=== PATIENT | female | born 1940 | race Caucasian/White ===

== ENCOUNTER 2019-11-29 10:34 | Emergency (ER) | payer MEDICARE, SELFPAY ==
[2019-11-29 11:57] VITALS: BP 178/91; PULSE 81; RESP 20; TEMP 37.1; O2SAT 99; BMI 43.7
--- NOTE | 2019-11-29 12:10 | XR_ITS ---
EXAMINATION: XR CHEST CLINICAL INFORMATION: Shortness of breath COMPARISON: None TECHNIQUE: 2 views of the chest were obtained. FINDINGS: There is no evidence of acute parenchymal disease, pneumothorax, or pleural effusion. Heart normal size. No evidence of pulmonary edema. 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 IMPRESSION: No acute disease.
--- NOTE | 2019-11-29 12:10 | ECG_ITS ---
Test Reason : SOB Blood Pressure : / mmHG Vent. Rate : 067 BPM Atrial Rate : 067 BPM P-R Int : 154 ms QRS Dur : 086 ms QT Int : 432 ms P-R-T Axes : 061 069 059 degrees QTc Int : 456 ms Normal sinus rhythm Nonspecific ST abnormality Abnormal ECG When compared with ECG of 25-JUL-2006 14:43, No significant change was found Referred By: Ana Stockton Electronically Signed By:HAILEY SEAY MD
--- NOTE | 2019-11-29 12:11 | US_ITS ---
EXAMINATION: US LOWER EXTREMITY VENOUS, LEFT CLINICAL INFORMATION: Left lower extremity pain and swelling. COMPARISON: None. TECHNIQUE: Doppler spectral analysis and color flow Doppler imaging was performed of the left lower extremity. Compression and augmentation maneuvers were performed. FINDINGS: The left common femoral, femoral, popliteal and calf veins were well-identified and normal. They demonstrate normal compressibility and color fill-in. Within the popliteal fossa there is a complex fluid collection present measuring approximately 4.8 x 1.9 x 2.7 cm in size consistent with popliteal fossa cyst. No popliteal artery aneurysm. IMPRESSION: No evidence for left lower extremity acute deep vein thrombosis. Left popliteal fossa cyst.
[2019-11-29] MEDS: oxyCODONE HCl Immed Release 5 MG TABLET PO (12:29)
[2019-11-29] MEDS: Cyclobenzaprine HCl 10 MG TABLET PO (12:30)
[2019-11-29 12:34] LABS: MANUAL DIFF FLAG NO
[2019-11-29 12:36] LABS: Basophils Absolute Auto 0.1 X10*3/uL (0.0-0.2); Basophils Percent Auto 0.8 % (0-2); Eosinophils Absolute Auto 0.1 X10*3/uL (0.0-0.4); Eosinophils Percent Auto 0.9 % (0-4); Hematocrit 38.8 % (37-47); Hemoglobin 12.9 g/dl (12.0-16.0); Imm Gran Abs Auto 0.02 X10*3/uL (0.00-0.03); Imm Gran Pct Auto 0.2 % (0.0-0.4); Lymphocytes Absolute Auto 2.8 X10*3/uL (1.2-4.9); Lymphocytes Percent Auto 29.2 % (20-40); Mean Corpuscular HGB Conc 33.2 g/dl (31.0-35.0); Mean Corpuscular Hemoglobin 29.9 pg (27.0-33.0); Mean Corpuscular Volume 89.8 fL (80-98); Monocytes Absolute Auto 0.7 X10*3/uL (0.1-1.2); Monocytes Percent Auto 7.7 % (2-11); Neutrophils Absolute Auto 5.8 X10*3/uL (2.0-8.3); Neutrophils Percent Auto 61.2 % (45-73); Platelet Count 242 X10*3/uL (160-400); Red Blood Count 4.32 X10*6/uL (4.20-5.50); White Blood Count 9.5 X10*3/uL (4.8-10.8)
--- NOTE | 2019-11-29 12:36 | ED_ITS ---
HPI - Extremity Injury (Lower) General Chief Complaint: Extremity Injury, Lower Stated Complaint: PAIN IN BOTH LEGS Time Seen by Provider: 11/29/19 12:05 Source: patient Mode of arrival: ambulatory Limitations: no limitations History of Present Illness HPI Narrative: 79-year-old female with a past medical history of diabetes, High cholesterol, HTN (hypertension), Hypothyroidism Here with left leg pain. The patient denies any injury or trauma. She reports me the pain starts in her left thigh and radiates down the leg. She has had this for several days several weeks. Patient does tell me she has had some shortness of breath with exertion. No cough or chest pain. No recent travel, surgery. She does have a history of pulmonary embolism greater than 30 years ago and is not on any anticoagulation at this time. MD complaint: other ( no injury) Onset (ago): week(s) Other symptoms: none Treatments prior to arrival: cold therapy Related Data Previous Rx's Medication Instructions Recorded cyclobenzaprine 10 mg PO Q8H PRN #10 tab 11/29/19 naproxen 500 mg PO BID PRN #10 tab 11/29/19 tramadol 50 mg PO BEDTIME PRN #5 tab 11/29/19 Allergies Allergy/AdvReac Type Severity Reaction Status Date / Time sulfamethoxazole Allergy Intermediate FULL BODY Unverified 10/31/19 15:41 [From BACTRIM] RASH trimethoprim [From BACTRIM] Allergy Intermediate FULL BODY Unverified 10/31/19 15:41 RASH Sulfa (Sulfonamide Allergy Unknown Verified 05/30/18 00:00 Antibiotics) Review of Systems Review of Systems: Yes all other systems are reviewed and are negative Constitutional: Constitutional: Reports no additional constitutional complaints, Denies body ache(s), Denies chills, Denies fever(s), Denies headache(s) and Denies weakness Eyes: Eyes: Reports no additional eye complaints and Denies change in vision ENT: Reports system reviewed and no additional complaints, except as documented, Denies dizziness, Denies headache(s), Denies nasal congestion, Denies nasal discharge and Denies neck pain Cardiovascular: Cardiovascular: Reports no additional cardiovascular complaints, Denies chest pain, Denies leg edema and Reports dyspnea Respiratory: Respiratory: Reports no additional respiratory complaints, Denies cough and Reports dyspnea Gastrointestinal: Gastrointestinal: Reports no additional gastrointestinal complaints, Denies abdominal pain, Denies diarrhea, Denies nausea and Denies vomiting Genitourinary: Genitourinary: Reports no additional female genitourinary complaints and Denies urinary incontinence Musculoskeletal: Musculoskeletal: Reports no additional musculoskeletal compl aints, Denies back pain, Denies arthralgias, Denies joint swelling, Reports muscle cramps, Denies neck pain, Denies numbness and Denies tingling Integumentary/Breasts: Skin/Breast: Reports system reviewed and no additional complaints, except as docu and Denies rash Neurologic: Reports system reviewed and no additional complaints, except as documented, Denies Abnormal speech present, Denies dizziness, Denies headache(s), Denies numbness, Denies tingling and Denies weakness PMFSH Past Medical History Attestation statement: The following information was validated with the patient. Source: obtained from family and nursing notes reviewed Medical History Diabetes 1.5, managed as type 2 High cholesterol HTN (hypertension) Hypothyroid Social History Social History Smoking Status: Former smoker Use of substances other than those prescribed or required for medical reasons: No Advance Directives: No Advance Directives Information Provided: Yes Physical Exam Vital Signs: Vital Signs: Vital Signs Temp Pulse Resp BP Pulse Ox 11/29/19 14:28 84 20 142/67 H 99 11/29/19 11:57 98.8 F 81 20 178/91 H 99 Body Mass Index 43.7 Const: General: cooperative, healthy appearing, comfortable and no acute distress Orientation/consciousness: patient oriented x3 Limitations: no limitations HENMT: Head: Yes normal to inspection Ears: hearing grossly normal bilaterally General nose exam: Normal external nose present Face and sinus: Yes normal facial exam Mouth: Normal oral and palatal mucosa present Throat: Yes posterior oropharynx normal Eyes: General: appearance normal, both eyes and all related structures Pupils: Equal, round and reactive pupils present Neck: Neck: Yes normal visual inspection Chest: Chest palpation & inspection: normal inspection of the chest Resp: Other: speaking full sentences. No apparent distress. Lung sounds clear throughout. Effort & Inspection: normal respiratory effort Auscultation: clear to auscultation bilaterally Cardio: Rate: regular rate Rhythm: regular rhythm Peripheral pulses: Peripheral pulses 2+ throughout GI: Inspection: Yes normal to inspection Palpation (GI): Soft to palpation and nontender Auscultation: normal bowel sounds Back/Spine/Pelvis: Thoracic/Lumbar Spine: thoracic and lumbar spine normal to inspection Skin: General skin exam: no rashes or lesions noted Neuro: General: patient oriented x3, no focal motor deficits and normal sensation to monofilament Cranial nerves: Yes Equal, round and reactive pupils present Cognition (Neuro): normal cognition Speech: No Abnormal speech present Gait exam (Neuro): Normal gait present Motor exam (neuro): 5/5 motor strength present throughout Extrem: Other: Patient has pain and tenderness over the entire left thigh which she tells me radiates down the leg. She does have some calf tenderness with no obvious swelling, discoloration. Neurovascularly intact distally. Pain with flexion of the left knee but is able. No palpable bony abnormality or discomfort over the knee or hip. Palpable muscle spasms. General: Yes normal to inspection Course Course Course Narrative: 79-year-old female here with left lower extremity pain which is atraumatic with some shortness of breath with exertion for the last several days to weeks. On exam her pain is musculoskeletal and very spasmodic the left lower extremity. No injury or trauma or bony abnormality. Will check ultrasound to rule out DVT. Patient also complaining of some shortness of breath exertion only. At rest she is well appearing with no difficulty with stable saturations a clear lung sounds. Will check chest x-ray, labs, EKG. 1400- ultrasound negative for DVT. Labs including troponin are unremarkable. Chest x-ray negative. Patient tells me she is feeling improved after receiving analgesia here. Will plan for ambulation trial with pulse ox. 1430- Patient walks with a steady gait with pulse ox greater than 96% no shortness of breath noted. No complaints of chest pain. The patient tells me her pain is much improved. Likely muscle spasm. Reviewed worrisome signs and symptoms and when to return to the emergency department. Comfortable with discharge home. Low concern for ACS with negative troponin and EKG unchanged from baseline with symptoms greater than 24 hours. Low concern for CHF with negative BNP. Low concern for PE with negative venous ultrasound, no tachycardia, no hypoxia. MDM - Extremity Injury (Lower) MDM Narrative Medical decision making narrative: Considered musculoskeletal, spasmodic pain, sciatica, DVT, PE, ACS, CHF Medical Records Attestation: I reviewed the patient's medical records. Lab Data Attestation: I reviewed the patient's lab results. Result diagrams: 11/29/19 12:11/29/19 12: Labs: Lab Results 11/29/19 11/29/19 11/29/19 Range/Units 12: 12: 12: WBC 9.5 (4.8-10.8) X10*3/uL RBC 4.32 (4.20-5.50) X10*6/uL Hgb 12.9 (12.0-16.0) g/dl Hct 38.8 (37-47) % MCV 89.8 (80-98) fL MCH 29.9 (27.0-33.0) pg MCHC 33.2 (31.0-35.0) g/dl RDW 13.0 (11.0-16.0) % Plt Count 242 (160-400) X10*3/uL MPV 11.0 (9.4-12.3) fL Immature Gran % (Auto) 0.2 (0.0-0.4) % Neut % (Auto) 61.2 (45-73) % Lymph % (Auto) 29.2 (20-40) % [place] % (Auto) 7.7 (2-11) % Eos % (Auto) 0.9 (0-4) % Baso % (Auto) 0.8 (0-2) % Lymph # (Auto) 2.8 (1.2-4.9) X10*3/uL [place] # (Auto) 0.7 (0.1-1.2) X10*3/uL Eos # (Auto) 0.1 (0.0-0.4) X10*3/uL Baso # (Auto) 0.1 (0.0-0.2) X10*3/uL Abs Immat Gran (auto) 0.02 (0.00-0.03) X10*3/uL Absolute Neuts (auto) 5.8 (2.0-8.3) X10*3/uL Absolute Nucleated RBC 0.000 (0.0-0.012) X10*3/uL Nucleated RBC % (auto) 0.0 (0.0-0.2) /100WBC PT 12.8 (10.8-13.0) SEC INR 1.1 (0.9-1.1) Sodium 141 (135-145) mmol/L Potassium 3.7 (3.3-5.1) mmol/l Chloride 99 (96-108) mmol/L Carbon Dioxide 31 H (22-29) mmol/L Anion Gap 15 (12-20) BUN 12 (9-16) mg/dL Creatinine 0.87 (0.5-1.4) mg/dL Estim Creat Clear Calc 67.6 Estimated GFR > 60 Random Glucose 131 H (60-115) mg/dL Calcium 9.4 (8.4-10.2) mg/dL Magnesium 2.0 (1.6-2.6) mg/dL Total Bilirubin 1.3 H (0.0-1.0) mg/dL Direct Bilirubin 0.5 (0.0-0.5) mg/dL AST 16 (5-31) U/L ALT 16 (0-31) U/L Alkaline Phosphatase 49 (39-117) U/L Troponin I High Sens (<3.5-17.0) ng/L B-Natriuretic Peptide (<100) pg/mL Total Protein 6.9 (6.5-8.0) g/dL Albumin 4.4 (3.5-5.0) g/dL 10/16/20 Range/Units 12:26 WBC (4.8-10.8) X10*3/uL RBC (4.20-5.50) X10*6/uL Hgb (12.0-16.0) g/dl Hct (37-47) % MCV (80-98) fL MCH (27.0-33.0) pg MCHC (31.0-35.0) g/dl RDW (11.0-16.0) % Plt Count (160-400) X10*3/uL MPV (9.4-12.3) fL Immature Gran % (Auto) (0.0-0.4) % Neut % (Auto) (45-73) % Lymph % (Auto) (20-40) % [place] % (Auto) (2-11) % Eos % (Auto) (0-4) % Baso % (Auto) (0-2) % Lymph # (Auto) (1.2-4.9) X10*3/uL [place] # (Auto) (0.1-1.2) X10*3/uL Eos # (Auto) (0.0-0.4) X10*3/uL Baso # (Auto) (0.0-0.2) X10*3/uL Abs Immat Gran (auto) (0.00-0.03) X10*3/uL Absolute Neuts (auto) (2.0-8.3) X10*3/uL Absolute Nucleated RBC (0.0-0.012) X10*3/uL Nucleated RBC % (auto) (0.0-0.2) /100WBC PT (10.8-13.0) SEC INR (0.9-1.1) Sodium (135-145) mmol/L Potassium (3.3-5.1) mmol/l Chloride (96-108) mmol/L Carbon Dioxide (22-29) mmol/L Anion Gap (12-20) BUN (9-16) mg/dL Creatinine (0.5-1.4) mg/dL Estim Creat Clear Calc Estimated GFR Random Glucose (60-115) mg/dL Calcium (8.4-10.2) mg/dL Magnesium (1.6-2.6) mg/dL Total Bilirubin (0.0-1.0) mg/dL Direct Bilirubin (0.0-0.5) mg/dL AST (5-31) U/L ALT (0-31) U/L Alkaline Phosphatase (39-117) U/L Troponin I High Sens 3.7 (<3.5-17.0) ng/L B-Natriuretic Peptide 26 (<100) pg/mL Total Protein (6.5-8.0) g/dL Albumin (3.5-5.0) g/dL Imaging Data venous US: Attestation: I personally reviewed and interpreted this imaging study as lea souza: My impression: Negative for DVT Radiologist's impression: [address] [address] Ultrasound Report Signed Patient: Aydin HughesAmilcar#: [id number] : 3Acct:[id number] Age/Sex: 79 / FADM Date: 11/29/19 Loc: HO.ED Attending Dr: Ordering Physician: YESENIA SAMUEL NP Date of Service: 11/29/19 Procedure(s): US venous duplex LE LT Accession Number(s): [id number] cc: YESENIA SAMUEL NP~ EXAMINATION: US LOWER EXTREMITY VENOUS, LEFT CLINICAL INFORMATION: Left lower extremity pain and swelling. COMPARISON: None. TECHNIQUE: Doppler spectral analysis and color flow Doppler imaging was performed of the left lower extremity. Compression and augmentation maneuvers were performed. FINDINGS: The left common femoral, femoral, popliteal and calf veins were well-identified and normal. They demonstrate normal compressibility and color fill-in. Within the popliteal fossa there is a complex fluid collection present measuring approximately 4.8 x 1.9 x 2.7 cm in size consistent with popliteal fossa cyst. No popliteal artery aneurysm. IMPRESSION: No evidence for left lower extremity acute deep vein thrombosis. Left popliteal fossa cyst. chest xray: My impression: unremarkanle Radiologist's impression: EXAMINATION: XR CHEST CLINICAL INFORMATION: Shortness of breath COMPARISON: None TECHNIQUE: 2 views of the chest were obtained. FINDINGS: There is no evidence of acute parenchymal disease, pneumothorax, or pleural effusion. Heart normal size. No evidence of pulmonary edema. 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 IMPRESSION: No acute disease. ECG Data Attestation: I personally reviewed and interpreted this ECG as follows: ECG interpretation date: 11/29/19 ECG interpretation time: 13:23 Interpretation: normal sinus rhythm, normal DC, normal QRS, nonspecific ST abnormality. Discharge Plan Discharge Clinical Impression: Muscle spasm Patient Disposition: Home, Self-Care Instructions: Muscle Spasm (ED) Additional Instructions: gentle stretching keep appointment with pcp on monday and if no better discuss with him Prescriptions: New naproxen 500 mg tablet 500 mg PO BID PRN (Reason: pain) Qty: 10 RF: 0 cyclobenzaprine 10 mg tablet 10 mg PO Q8H PRN (Reason: muscle spasm) Qty: 10 RF: 0 tramadol 50 mg tablet 50 mg PO BEDTIME PRN (Reason: pain) Qty: 5 RF: 0 Referrals: Fredrick Ghotra MD [Primary Care Provider] - 2 days Interventions: ED Discharge Assessment Last Done: 11/29/19 14:39 Discharge Date/Time: 11/29/19 14:43
[2019-11-29 12:40] LABS: INTERNATIONAL NORM RATIO 1.1 (0.9-1.1); Prothrombin Time 12.8 SEC (10.8-13.0)
[2019-11-29 13:15] LABS: Alanine Aminotransferase 16 U/L (0-31); Albumin Level 4.4 g/dL (3.5-5.0); Alkaline Phosphatase 49 U/L (39-117); Anion Gap 15 (12-20); Aspartate Amino Transferase 16 U/L (5-31); Bilirubin Direct 0.5 mg/dL (0.0-0.5); Bilirubin Total 1.3 mg/dL (0.0-1.0); Blood Urea Nitrogen 12 mg/dL (9-16); Calcium 9.4 mg/dL (8.4-10.2); Carbon Dioxide 31 mmol/L (22-29); Chloride 99 mmol/L (96-108); Creatinine Clr Calc Pharmacy 67.6; Estimated Glomerular Filt Rate > 60; Glucose Random 131 mg/dL (60-115); Potassium 3.7 mmol/l (3.3-5.1); Sodium 141 mmol/L (135-145); Total Protein 6.9 g/dL (6.5-8.0)
[2019-11-29 13:18] LABS: B Type Natriuretic Peptide 26 pg/mL (<100); Troponin-I High Sensitivity 3.7 ng/L (<3.5-17.0)
--- NOTE | 2019-11-29 14:26 | PC.NURSE ---
THIS RN DID AN AMBULATION TRIAL WITH THE PT, PT AMBULATED REALLY WELL STATES SHE FEELS MUCH BETTER, SAT'S MAINTAINED AT 95-96% ON ROOM AIR
[2019-11-29 14:28] VITALS: BP 142/67; PULSE 84; RESP 20; O2SAT 99
== END 2019-11-29 14:43 | disposition home or self-care (01) ==
PROVIDERS: Nurse Practitioner Family; Emergency Provider Emergency Medicine; PCP Internal Medicine
DX: M79.662 Pain in left lower leg (principal); R60.0 Localized edema; E11.9 Type 2 diabetes mellitus without complications; I10 Essential (primary) hypertension; Z87.891 Personal history of nicotine dependence; Z79.899 Other long term (current) drug therapy
CPT/HCPCS: 36415; 71046; 80048; 80076; 83735; 83880; 84484; 85025; 85610; 93005; 93971; 99284

== ENCOUNTER 2019-12-02 10:23 | Outpatient (REF) | payer MEDICARE, SELFPAY ==
[2019-12-02 11:17] LABS: Estimated Average Glucose 128 mg/dL; Hemoglobin A1c % 6.1 %
[2019-12-02 11:52] LABS: Anion Gap 12 (12-20); Blood Urea Nitrogen 18 mg/dL (9-16); Calcium 8.9 mg/dL (8.4-10.2); Carbon Dioxide 32 mmol/L (22-29); Chloride 102 mmol/L (96-108); Estimated Glomerular Filt Rate > 60; Glucose Random 116 mg/dL (60-115); Potassium 4.4 mmol/l (3.3-5.1); Sodium 142 mmol/L (135-145)
[2019-12-02 12:13] LABS: Free T4 (Free Thyroxine) 1.21 ng/dL (0.71-1.85); Vitamin D 25-OH Total 42.4 ng/mL (>30)
== END 2019-12-02 10:24 | disposition home or self-care (01) ==
LOC: HO.LAB 10:23
PROVIDERS: PCP Internal Medicine; Visit Provider Internal Medicine
DX: E03.9 Hypothyroidism, unspecified (principal); E11.9 Type 2 diabetes mellitus without complications; I10 Essential (primary) hypertension; R25.2 Cramp and spasm
CPT/HCPCS: 80048; 82306; 82550; 83036; 84439; 84443

== ENCOUNTER 2019-12-19 10:39 | Outpatient (REF) | payer MEDICARE, SELFPAY ==
--- NOTE | 2019-12-19 10:44 | MM_ITS ---
EXAMINATION: MM SCREENING DIGITAL BREAST TOMOSYNTHESIS, BILATERAL CLINICAL INFORMATION: Screening. Asymptomatic. The lifetime risk of breast cancer based on the Tyrer-Cuzick Model is 3.9%. COMPARISON: Mammography: December 13, 2018 and studies dating back to September 03, 2013 TECHNIQUE: Digital breast tomosynthesis is performed in both the craniocaudal and mediolateral oblique views along with computer-aided detection (CAD). Synthesized 2D images are generated from the tomosynthesis. FINDINGS: The breasts are almost entirely fatty (ACR BI-RADS breast composition Category a). There are no significant masses, abnormal calcifications, or other abnormalities. MM/MM tomosynthesis screening BI IMPRESSION: There are no significant changes from prior study. ASSESSMENT: BI-RADS 1: Negative RECOMMENDATION: Routine annual mammography screening. This patient's information was entered into a reminder system with a target due date for their next mammogram.
== END 2019-12-19 10:40 | disposition home or self-care (01) ==
LOC: HO.MAMMO 10:39
PROVIDERS: PCP Internal Medicine; Visit Provider Internal Medicine
DX: Z12.31 Encounter for screening mammogram for malignant neoplasm of breast (principal)
CPT/HCPCS: 77063; 77067

== ENCOUNTER 2020-06-22 10:15 | Outpatient (REF) | payer MEDICARE, SELFPAY ==
[2020-06-22 14:08] LABS: MANUAL DIFF FLAG NO
[2020-06-22 14:14] LABS: Basophils Absolute Auto 0.1 X10*3/uL (0.0-0.2); Basophils Percent Auto 0.7 % (0-2); Eosinophils Absolute Auto 0.2 X10*3/uL (0.0-0.4); Eosinophils Percent Auto 2.6 % (0-4); Hematocrit 38.6 % (37-47); Hemoglobin 12.6 g/dl (12.0-16.0); Imm Gran Abs Auto 0.02 X10*3/uL (0.00-0.03); Imm Gran Pct Auto 0.2 % (0.0-0.4); Lymphocytes Absolute Auto 2.7 X10*3/uL (1.2-4.9); Lymphocytes Percent Auto 32.7 % (20-40); Mean Corpuscular HGB Conc 32.6 g/dl (31.0-35.0); Mean Corpuscular Hemoglobin 29.5 pg (27.0-33.0); Mean Corpuscular Volume 90.4 fL (80-98); Mean Platelet Volume 12.2 fL (9.4-12.3); Monocytes Absolute Auto 0.5 X10*3/uL (0.1-1.2); Monocytes Percent Auto 6.1 % (2-11); Neutrophils Absolute Auto 4.7 X10*3/uL (2.0-8.3); Neutrophils Percent Auto 57.7 % (45-73); Platelet Count 272 X10*3/uL (160-400); Red Blood Count 4.27 X10*6/uL (4.20-5.50); Red Cell Distribution Width 13.2 % (11.0-16.0); White Blood Count 8.2 X10*3/uL (4.8-10.8)
[2020-06-22 14:20] LABS: Estimated Average Glucose 114 mg/dL; Hemoglobin A1c % 5.6 %
[2020-06-22 14:48] LABS: Alanine Aminotransferase 16 U/L (0-31); Albumin Level 4.3 g/dL (3.5-5.0); Alkaline Phosphatase 49 U/L (39-117); Anion Gap 17 (12-20); Aspartate Amino Transferase 14 U/L (5-31); Blood Urea Nitrogen 13 mg/dL (9-16); Calcium 9.6 mg/dL (8.4-10.2); Carbon Dioxide 28 mmol/L (22-29); Chloride 102 mmol/L (96-108); Estimated Glomerular Filt Rate > 60; Glucose Fasting 104 mg/dL (60-99); Sodium 143 mmol/L (135-145); Total Protein 6.7 g/dL (6.5-8.0)
[2020-06-22 14:57] LABS: Creatinine Urine 12.07 mg/dL; Microalbumin Urine < 5.0 mg/L
[2020-06-22 15:00] LABS: Free T4 (Free Thyroxine) 1.12 ng/dL (0.71-1.85); Thyroid Stimulating Hormone 2.34 uIU/mL (0.32-4.0)
== END 2020-06-22 10:16 | disposition home or self-care (01) ==
LOC: HO.10HDL 10:15
PROVIDERS: Visit Provider Internal Medicine
DX: E11.9 Type 2 diabetes mellitus without complications (principal); I10 Essential (primary) hypertension; E03.9 Hypothyroidism, unspecified
CPT/HCPCS: 36415; 80053; 82043; 83036; 84439; 84443; 85025

== ENCOUNTER 2020-09-21 09:45 | Outpatient (REF) | payer MEDICARE, SELFPAY ==
[2020-09-21 11:10] LABS: Estimated Average Glucose 123 mg/dL; Hemoglobin A1c % 5.9 %
[2020-09-21 11:17] LABS: Anion Gap 11 (12-20); Blood Urea Nitrogen 17 mg/dL (9-16); Carbon Dioxide 30 mmol/L (22-29); Chloride 106 mmol/L (96-108); Estimated Glomerular Filt Rate > 60; Glucose Random 134 mg/dL (60-115); Sodium 143 mmol/L (135-145)
== END 2020-09-21 09:46 | disposition home or self-care (01) ==
LOC: HO.10HDL 09:45
PROVIDERS: PCP Internal Medicine; Visit Provider Internal Medicine
DX: I10 Essential (primary) hypertension (principal); E11.9 Type 2 diabetes mellitus without complications
CPT/HCPCS: 36415; 80048; 83036

== ENCOUNTER 2020-12-24 08:52 | Outpatient (REF) | payer MEDICARE, SELFPAY ==
--- NOTE | ~2020-12-24 | MM_ITS ---
EXAMINATION: MM SCREENING DIGITAL BREAST TOMOSYNTHESIS, BILATERAL CLINICAL INFORMATION: Screening. Asymptomatic. The lifetime risk of breast cancer based on the Tyrer-Cuzick Model is 1.7%. COMPARISON: Mammography: December 19, 2019 and studies dating back to August 23, 2011 TECHNIQUE: Digital breast tomosynthesis is performed in both the craniocaudal and mediolateral oblique views along with computer-aided detection (CAD). Synthesized 2D images are generated from the tomosynthesis. FINDINGS: The breasts are almost entirely fatty (ACR BI-RADS breast composition Category a). There are no significant masses, abnormal calcifications, or other abnormalities. Stable region of architectural distortion some really region again seen. MM/MM tomosynthesis screening BI IMPRESSION: There are no significant changes from prior study. ASSESSMENT: BI-RADS 1: Negative RECOMMENDATION: Routine annual mammography screening. This patient's information was entered into a reminder system with a target due date for their next mammogram.
== END 2020-12-24 08:53 | disposition home or self-care (01) ==
LOC: HO.MAMMO 08:52
PROVIDERS: Visit Provider Internal Medicine
DX: Z12.31 Encounter for screening mammogram for malignant neoplasm of breast (principal)
CPT/HCPCS: 77063; 77067

== ENCOUNTER 2020-12-28 10:12 | Outpatient (REF) | payer MEDICARE, SELFPAY ==
[2020-12-28 13:46] LABS: MANUAL DIFF FLAG NO
[2020-12-28 13:52] LABS: Basophils Absolute Auto 0.1 X10*3/uL (0.0-0.2); Basophils Percent Auto 0.8 % (0-2); Eosinophils Absolute Auto 0.2 X10*3/uL (0.0-0.4); Hematocrit 39.9 % (37.0-47.0); Hemoglobin 13.2 g/dl (12.0-16.0); Imm Gran Abs Auto 0.02 X10*3/uL (0.00-0.03); Imm Gran Pct Auto 0.2 % (0.0-0.4); Lymphocytes Absolute Auto 3.2 X10*3/uL (1.2-4.9); Lymphocytes Percent Auto 37.4 % (20-40); Mean Corpuscular HGB Conc 33.1 g/dl (31.0-35.0); Mean Corpuscular Hemoglobin 29.5 pg (27.0-33.0); Mean Corpuscular Volume 89.1 fL (80.0-98.0); Mean Platelet Volume 12.7 fL (9.4-12.3); Monocytes Absolute Auto 0.6 X10*3/uL (0.1-1.2); Monocytes Percent Auto 6.6 % (2-11); Neutrophils Absolute Auto 4.6 x10*3/uL (2.0-8.3); Platelet Count 254 X10*3/uL (160-400); Red Blood Count 4.48 X10*6/uL (4.20-5.50); Red Cell Distribution Width 13.3 % (11.0-16.0); White Blood Count 8.6 X10*3/uL (4.8-10.8)
[2020-12-28 14:04] LABS: Estimated Average Glucose 120 mg/dL; Hemoglobin A1c % 5.8 %
[2020-12-28 14:17] LABS: Creatinine Urine 169.81 mg/dL; Microalbum/Creatinine Ratio Ur 15.3 ug/mg cr
[2020-12-28 14:18] LABS: Alanine Aminotransferase 15 U/L (0-31); Albumin Level 4.2 g/dL (3.5-5.0); Alkaline Phosphatase 44 U/L (39-117); Anion Gap 13 (12-20); Aspartate Amino Transferase 16 U/L (5-31); Blood Urea Nitrogen 17 mg/dL (9-16); Calcium 9.5 mg/dL (8.4-10.2); Carbon Dioxide 31 mmol/L (22-29); Chloride 103 mmol/L (96-108); Cholesterol 165 mg/dL; Estimated Glomerular Filt Rate > 60; Glucose Fasting 110 mg/dL (60-99); HDL Cholesterol 54 mg/dL; LDL Cholesterol Calculated 91 mg/dl; Potassium 4.2 mmol/L (3.3-5.1); Sodium 143 mmol/L (135-145); Total Protein 6.8 g/dL (6.5-8.0); Triglycerides 102 mg/dL
[2020-12-28 14:37] LABS: Free T4 (Free Thyroxine) 1.03 ng/dL (0.71-1.85); Thyroid Stimulating Hormone 2.44 uIU/mL (0.32-4.0)
== END 2020-12-28 10:13 | disposition home or self-care (01) ==
LOC: HO.10HDL 10:12
PROVIDERS: Visit Provider Internal Medicine
DX: E11.9 Type 2 diabetes mellitus without complications (principal); I10 Essential (primary) hypertension; E03.9 Hypothyroidism, unspecified; E78.00 Pure hypercholesterolemia, unspecified
CPT/HCPCS: 36415; 80053; 80061; 82043; 83036; 84439; 84443; 85025

== ENCOUNTER 2021-09-06 09:45 | Outpatient (REF) | payer MEDICARE, SELFPAY ==
[2021-09-06 10:21] LABS: MANUAL DIFF FLAG NO
[2021-09-06 10:23] LABS: Basophils Absolute Auto 0.1 X10*3/uL (0.0-0.2); Basophils Percent Auto 0.7 % (0-2); Eosinophils Absolute Auto 0.3 X10*3/uL (0.0-0.4); Eosinophils Percent Auto 3.3 % (0-4); Hemoglobin 12.5 g/dl (12.0-16.0); Imm Gran Abs Auto 0.03 X10*3/uL (0.00-0.03); Imm Gran Pct Auto 0.3 % (0.0-0.4); Lymphocytes Percent Auto 32.9 % (20-40); Mean Corpuscular HGB Conc 32.1 g/dl (31.0-35.0); Mean Corpuscular Hemoglobin 28.2 pg (27.0-33.0); Mean Corpuscular Volume 87.8 fL (80.0-98.0); Mean Platelet Volume 11.3 fL (9.4-12.3); Monocytes Absolute Auto 0.7 X10*3/uL (0.1-1.2); Monocytes Percent Auto 7.3 % (2-11); Neutrophils Percent Auto 55.5 % (45-73); Platelet Count 280 X10*3/uL (160-400); Red Blood Count 4.44 X10*6/uL (4.20-5.50); Red Cell Distribution Width 13.2 % (11.0-16.0); White Blood Count 9.1 X10*3/uL (4.8-10.8)
[2021-09-06 11:09] LABS: Estimated Average Glucose 128 mg/dL; Hemoglobin A1c % 6.1 %
[2021-09-06 11:48] LABS: Alanine Aminotransferase 13 U/L (0-31); Albumin Level 4.1 g/dL (3.5-5.0); Alkaline Phosphatase 47 U/L (39-117); Anion Gap 12 (12-20); Aspartate Amino Transferase 15 U/L (5-31); Bilirubin Total 0.9 mg/dL (0.0-1.0); Blood Urea Nitrogen 17 mg/dL (9-16); Calcium 8.9 mg/dL (8.4-10.2); Carbon Dioxide 31 mmol/L (22-29); Chloride 103 mmol/L (96-108); Estimated Glomerular Filt Rate > 60; Glucose Random 128 mg/dL (60-115); Iron 57 mcg/dL (30-160); Percent Iron Saturation 19 % (15-50); Potassium 3.9 mmol/L (3.3-5.1); Sodium 142 mmol/L (135-145); Total Iron Binding Capacity 308 mcg/dL (228-428); Total Protein 6.7 g/dL (6.5-8.0); Unsaturated Iron Binding 251 ug/dL
[2021-09-06 12:10] LABS: Free T4 (Free Thyroxine) 0.92 ng/dL (0.71-1.85); Thyroid Stimulating Hormone 5.67 uIU/mL (0.32-4.0)
== END 2021-09-06 09:46 | disposition home or self-care (01) ==
LOC: HO.10HDL 09:45
PROVIDERS: Visit Provider Internal Medicine
DX: D64.9 Anemia, unspecified (principal); E11.9 Type 2 diabetes mellitus without complications; E03.9 Hypothyroidism, unspecified; I10 Essential (primary) hypertension
CPT/HCPCS: 36415; 80053; 83036; 83540; 84439; 84443; 85025

== ENCOUNTER 2021-12-30 09:26 | Outpatient (REF) | payer MEDICARE, SELFPAY ==
--- NOTE | ~2021-12-30 | MM_ITS ---
EXAMINATION: MM SCREENING DIGITAL BREAST TOMOSYNTHESIS, BILATERAL CLINICAL INFORMATION: Screening. Asymptomatic. The lifetime risk of breast cancer based on the Tyrer-Cuzick Model is 1.9%. COMPARISON: Mammography: December 24, 2020 and studies dating back to September 03, 2013 TECHNIQUE: Digital breast tomosynthesis is performed in both the craniocaudal and mediolateral oblique views along with computer-aided detection (CAD). Synthesized 2D images are generated from the tomosynthesis. FINDINGS: The breasts are almost entirely fatty (ACR BI-RADS breast composition Category a). There are no significant masses, abnormal calcifications, or other abnormalities. MM/MM tomosynthesis screening BI IMPRESSION: No significant changes from prior exam. ASSESSMENT: BI-RADS 1: Negative RECOMMENDATION: Routine annual mammography screening. This patient's information was entered into a reminder system with a target due date for their next mammogram.
== END 2021-12-30 09:27 | disposition home or self-care (01) ==
LOC: HO.MAMMO 09:26
PROVIDERS: Visit Provider Internal Medicine
DX: Z12.31 Encounter for screening mammogram for malignant neoplasm of breast (principal)
CPT/HCPCS: 77063; 77067

== ENCOUNTER 2022-01-03 09:39 | Outpatient (REF) | payer MEDICARE, SELFPAY ==
[2022-01-03 10:45] LABS: MANUAL DIFF FLAG NO
[2022-01-03 10:52] LABS: Basophils Absolute Auto 0.1 X10*3/uL (0.0-0.2); Eosinophils Absolute Auto 0.3 X10*3/uL (0.0-0.4); Hematocrit 39.7 % (37.0-47.0); Hemoglobin 12.9 g/dl (12.0-16.0); Imm Gran Abs Auto 0.02 X10*3/uL (0.00-0.03); Imm Gran Pct Auto 0.2 % (0.0-0.4); Lymphocytes Absolute Auto 2.9 X10*3/uL (1.2-4.9); Lymphocytes Percent Auto 33.8 % (20-40); Mean Corpuscular HGB Conc 32.5 g/dl (31.0-35.0); Mean Corpuscular Hemoglobin 28.7 pg (27.0-33.0); Mean Corpuscular Volume 88.2 fL (80.0-98.0); Mean Platelet Volume 11.3 fL (9.4-12.3); Monocytes Absolute Auto 0.6 X10*3/uL (0.1-1.2); Monocytes Percent Auto 6.8 % (2-11); Neutrophils Absolute Auto 4.7 x10*3/uL (2.0-8.3); Neutrophils Percent Auto 55.2 % (45-73); Platelet Count 255 X10*3/uL (160-400); Red Cell Distribution Width 12.8 % (11.0-16.0); White Blood Count 8.4 X10*3/uL (4.8-10.8)
[2022-01-03 11:07] LABS: Estimated Average Glucose 126 mg/dL
[2022-01-03 11:14] LABS: Alanine Aminotransferase 16 U/L (0-31); Albumin Level 4.1 g/dL (3.5-5.0); Alkaline Phosphatase 49 U/L (39-117); Anion Gap 16 (12-20); Aspartate Amino Transferase 16 U/L (5-31); Bilirubin Total 0.9 mg/dL (0.0-1.0); Blood Urea Nitrogen 15 mg/dL (9-16); Calcium 9.2 mg/dL (8.4-10.2); Carbon Dioxide 30 mmol/L (22-29); Chloride 103 mmol/L (96-108); Cholesterol 152 mg/dL; Estimated Glomerular Filt Rate > 60; Glucose Fasting 130 mg/dL (60-99); HDL Cholesterol 53 mg/dL; LDL Cholesterol Calculated 73 mg/dl; Potassium 3.9 mmol/L (3.3-5.1); Sodium 145 mmol/L (135-145); Total Protein 6.7 g/dL (6.5-8.0); Triglycerides 131 mg/dL
[2022-01-03 11:35] LABS: Free T4 (Free Thyroxine) 0.92 ng/dL (0.71-1.85)
[2022-01-03 11:42] LABS: Creatinine Urine 163.15 mg/dL; Microalbum/Creatinine Ratio Ur 49.6 ug/mg cr
== END 2022-01-03 09:40 | disposition home or self-care (01) ==
LOC: HO.10HDL 09:39
PROVIDERS: Visit Provider Internal Medicine
DX: Z00.00 Encounter for general adult medical examination without abnormal findings (principal); E11.9 Type 2 diabetes mellitus without complications; E03.9 Hypothyroidism, unspecified
CPT/HCPCS: 36415; 80053; 80061; 82043; 83036; 84439; 84443; 85025

== ENCOUNTER 2022-06-22 09:53 | Outpatient (REF) | payer MEDICARE, SELFPAY ==
[2022-06-22 11:06] LABS: Estimated Average Glucose 134 mg/dL; Hemoglobin A1c % 6.3 %
[2022-06-22 11:47] LABS: Anion Gap 12 (12-20)
[2022-06-22 11:48] LABS: Blood Urea Nitrogen 14 mg/dL (9-16); Calcium 9.3 mg/dL (8.4-10.2); Carbon Dioxide 31 mmol/L (22-29); Chloride 104 mmol/L (96-108); Estimated Glomerular Filt Rate > 60; Glucose Random 134 mg/dL (60-115); Potassium 4.1 mmol/L (3.3-5.1); Sodium 143 mmol/L (135-145)
[2022-06-22 11:51] LABS: Free T4 (Free Thyroxine) 0.82 ng/dL (0.71-1.85); Thyroid Stimulating Hormone 7.73 uIU/mL (0.32-4.0)
== END 2022-06-22 09:54 | disposition home or self-care (01) ==
LOC: HO.10HDL 09:53
PROVIDERS: Visit Provider Internal Medicine
DX: E11.9 Type 2 diabetes mellitus without complications (principal); I10 Essential (primary) hypertension; E03.9 Hypothyroidism, unspecified
CPT/HCPCS: 36415; 80048; 83036; 84439; 84443

== ENCOUNTER 2022-09-20 09:56 | Outpatient (REF) | payer MEDICARE, SELFPAY ==
[2022-09-20 11:44] LABS: Estimated Average Glucose 131 mg/dL; Hemoglobin A1C 149.7451 umol/L; Hemoglobin A1c % 6.2 %
[2022-09-20 12:07] LABS: Anion Gap 12 (12-20); Blood Urea Nitrogen 13 mg/dL (9-16); Calcium 9.8 mg/dL (8.4-10.2); Carbon Dioxide 33 mmol/L (22-29); Chloride 101 mmol/L (96-108); Estimated Glomerular Filt Rate > 60; Glucose Random 129 mg/dL (60-115); Potassium 3.9 mmol/L (3.3-5.1); Sodium 142 mmol/L (135-145)
[2022-09-20 12:27] LABS: Free T4 (Free Thyroxine) 0.69 ng/dL (0.71-1.85); Thyroid Stimulating Hormone 15.56 uIU/mL (0.32-4.0)
== END 2022-09-20 09:57 | disposition home or self-care (01) ==
LOC: HO.10HDL 09:56
PROVIDERS: Visit Provider Internal Medicine
DX: E11.9 Type 2 diabetes mellitus without complications (principal); I10 Essential (primary) hypertension; E03.9 Hypothyroidism, unspecified
CPT/HCPCS: 36415; 80048; 83036; 84439; 84443

== ENCOUNTER 2022-10-10 09:10 | Outpatient (REF) | payer MEDICARE, SELFPAY ==
[2022-10-10 11:15] LABS: Anion Gap 14 (12-20); Blood Urea Nitrogen 15 mg/dL (9-16); Calcium 9.3 mg/dL (8.4-10.2); Carbon Dioxide 30 mmol/L (22-29); Chloride 103 mmol/L (96-108); Estimated Glomerular Filt Rate > 60; Glucose Random 123 mg/dL (60-115); Sodium 143 mmol/L (135-145)
[2022-10-10 11:26] LABS: Estimated Average Glucose 131 mg/dL; Free T4 (Free Thyroxine) 0.76 ng/dL (0.71-1.85); Hemoglobin A1c % 6.2 % (<6.0); Thyroid Stimulating Hormone 16.95 uIU/mL (0.32-4.0)
== END 2022-10-10 09:11 | disposition home or self-care (01) ==
LOC: HO.10HDL 09:10
PROVIDERS: Visit Provider Internal Medicine
DX: E11.9 Type 2 diabetes mellitus without complications (principal); I10 Essential (primary) hypertension; E03.9 Hypothyroidism, unspecified
CPT/HCPCS: 36415; 80048; 83036; 84439; 84443

== ENCOUNTER 2022-12-14 10:19 | Outpatient (REF) | payer MEDICARE, SELFPAY ==
[2022-12-14 13:15] LABS: MANUAL DIFF FLAG NO
[2022-12-14 13:20] LABS: Basophils Absolute Auto 0.1 X10*3/uL (0.0-0.2); Eosinophils Absolute Auto 0.3 X10*3/uL (0.0-0.4); Eosinophils Percent Auto 2.8 % (0-4); Hematocrit 41.1 % (37.0-47.0); Hemoglobin 13.6 g/dl (12.0-16.0); Imm Gran Abs Auto 0.03 X10*3/uL (0.00-0.03); Imm Gran Pct Auto 0.3 % (0.0-0.4); Lymphocytes Percent Auto 38.5 % (20-40); Mean Corpuscular HGB Conc 33.1 g/dl (31.0-35.0); Mean Corpuscular Hemoglobin 29.6 pg (27.0-33.0); Mean Corpuscular Volume 89.3 fL (80.0-98.0); Mean Platelet Volume 11.5 fL (9.4-12.3); Monocytes Absolute Auto 0.7 X10*3/uL (0.1-1.2); Monocytes Percent Auto 7.1 % (2-11); Neutrophils Absolute Auto 5.2 x10*3/uL (2.0-8.3); Neutrophils Percent Auto 50.3 % (45-73); Platelet Count 293 X10*3/uL (160-400); Red Cell Distribution Width 12.8 % (11.0-16.0); White Blood Count 10.3 X10*3/uL (4.8-10.8)
[2022-12-14 13:33] LABS: Estimated Average Glucose 123 mg/dL; Hemoglobin A1c % 5.9 % (<6.0)
[2022-12-14 13:42] LABS: Alanine Aminotransferase 15 U/L (0-31); Albumin Level 4.3 g/dL (3.5-5.0); Alkaline Phosphatase 40 U/L (39-117); Anion Gap 16 (12-20); Aspartate Amino Transferase 19 U/L (5-31); Bilirubin Total 0.9 mg/dL (0.0-1.0); Blood Urea Nitrogen 14 mg/dL (9-16); Calcium 9.8 mg/dL (8.4-10.2); Carbon Dioxide 30 mmol/L (22-29); Chloride 103 mmol/L (96-108); Cholesterol 174 mg/dL (<200); Estimated Glomerular Filt Rate > 60; Glucose Fasting 128 mg/dL (60-99); HDL Cholesterol 52 mg/dL (>40); LDL Cholesterol Calculated 102 mg/dL (<100); Potassium 3.7 mmol/L (3.3-5.1); Sodium 145 mmol/L (135-145); Total Protein 7.4 g/dL (6.5-8.0); Triglycerides 102 mg/dL (<150)
[2022-12-14 13:59] LABS: Creatinine Urine 167.02 mg/dL; Microalbum/Creatinine Ratio Ur 29.9 ug/mg cr (<30)
[2022-12-14 14:00] LABS: Free T4 (Free Thyroxine) 1.14 ng/dL (0.71-1.85); Thyroid Stimulating Hormone 2.09 uIU/mL (0.32-4.0)
== END 2022-12-14 10:20 | disposition home or self-care (01) ==
LOC: HO.10HDL 10:19
PROVIDERS: Visit Provider Internal Medicine
DX: E11.9 Type 2 diabetes mellitus without complications (principal); I10 Essential (primary) hypertension; E78.00 Pure hypercholesterolemia, unspecified; E03.9 Hypothyroidism, unspecified
CPT/HCPCS: 36415; 80053; 80061; 82043; 82570; 83036; 84439; 84443; 85025

== ENCOUNTER 2023-01-02 09:19 | Outpatient (REF) | payer MEDICARE, SELFPAY | END 2023-01-02 09:20 | disposition home or self-care (01) | LOC: HO.MAMMO 09:19 | PROVIDERS: PCP Internal Medicine; Visit Provider Internal Medicine | DX: Z12.31 Encounter for screening mammogram for malignant neoplasm of breast (principal) | CPT/HCPCS: 77063; 77067 ==

== ENCOUNTER → 2023-01-02 09:45 | Outpatient (BNV) | payer MEDICARE, SELFPAY | PROVIDERS: PCP Internal Medicine; Visit Provider Radiology Diagnostic Radiology | DX: Z12.31 Encounter for screening mammogram for malignant neoplasm of breast (principal) | CPT/HCPCS: 77063; 77067 ==

== ENCOUNTER 2023-05-24 10:21 | Outpatient (REF) | payer MEDICARE, SELFPAY ==
[2023-05-24 11:03] LABS: MANUAL DIFF FLAG NO
[2023-05-24 11:28] LABS: Basophils Absolute Auto 0.1 X10*3/uL (0.0-0.2); Basophils Percent Auto 0.9 % (0-2); Eosinophils Absolute Auto 0.2 X10*3/uL (0.0-0.4); Eosinophils Percent Auto 2.3 % (0-4); Hematocrit 39.3 % (37.0-47.0); Imm Gran Abs Auto 0.03 X10*3/uL (0.00-0.03); Imm Gran Pct Auto 0.4 % (0.0-0.4); Lymphocytes Absolute Auto 2.5 X10*3/uL (1.2-4.9); Mean Corpuscular HGB Conc 33.1 g/dl (31.0-35.0); Mean Corpuscular Hemoglobin 29.2 pg (27.0-33.0); Mean Corpuscular Volume 88.3 fL (80.0-98.0); Mean Platelet Volume 11.3 fL (9.4-12.3); Monocytes Absolute Auto 0.5 X10*3/uL (0.1-1.2); Monocytes Percent Auto 6.4 % (2-11); Neutrophils Absolute Auto 4.7 x10*3/uL (2.0-8.3); Platelet Count 264 X10*3/uL (160-400); Red Blood Count 4.45 X10*6/uL (4.20-5.50); Red Cell Distribution Width 13.2 % (11.0-16.0)
[2023-05-24 11:39] LABS: Estimated Average Glucose 134 mg/dL; Hemoglobin A1c % 6.3 % (<6.0)
[2023-05-24 11:49] LABS: Thyroid Stimulating Hormone 1.26 uIU/mL (0.32-4.0)
[2023-05-24 11:57] LABS: Anion Gap 13 (12-20)
[2023-05-24 12:02] LABS: Alanine Aminotransferase 16 U/L (0-31); Albumin Level 3.9 g/dL (3.5-5.0); Alkaline Phosphatase 44 U/L (39-117); Aspartate Amino Transferase 16 U/L (5-31); Bilirubin Total 0.9 mg/dL (0.0-1.0); Blood Urea Nitrogen 17 mg/dL (9-16); Calcium 9.3 mg/dL (8.4-10.2); Carbon Dioxide 31 mmol/L (22-29); Chloride 103 mmol/L (96-108); Estimated Glomerular Filt Rate > 60; Glucose Random 132 mg/dL (60-115); Potassium 3.9 mmol/L (3.3-5.1); Sodium 143 mmol/L (135-145); Total Protein 6.8 g/dL (6.5-8.0)
[2023-05-24 12:09] LABS: Creatinine Urine 192.72 mg/dL; Microalbum/Creatinine Ratio Ur 12.9 ug/mg cr (<30)
== END 2023-05-24 10:22 | disposition home or self-care (01) ==
LOC: HO.10HDL 10:21
PROVIDERS: Visit Provider Internal Medicine
DX: E11.9 Type 2 diabetes mellitus without complications (principal); I10 Essential (primary) hypertension; E03.9 Hypothyroidism, unspecified
CPT/HCPCS: 36415; 80053; 82043; 82570; 83036; 84439; 84443; 85025

== ENCOUNTER 2023-12-25 09:32 | Outpatient (REF) | payer MEDICARE, SELFPAY ==
[2023-12-25 10:46] LABS: MANUAL DIFF FLAG NO
[2023-12-25 10:51] LABS: Basophils Absolute Auto 0.1 X10*3/uL (0.0-0.2); Basophils Percent Auto 1.1 % (0-2); Eosinophils Absolute Auto 0.2 X10*3/uL (0.0-0.4); Eosinophils Percent Auto 2.4 % (0-4); Hematocrit 38.4 % (37.0-47.0); Hemoglobin 12.8 g/dl (12.0-16.0); Imm Gran Abs Auto 0.03 X10*3/uL (0.00-0.03); Imm Gran Pct Auto 0.3 % (0.0-0.4); Lymphocytes Percent Auto 33.5 % (20-40); Mean Corpuscular HGB Conc 33.3 g/dl (31.0-35.0); Mean Corpuscular Hemoglobin 29.3 pg (27.0-33.0); Mean Corpuscular Volume 87.9 fL (80.0-98.0); Mean Platelet Volume 11.2 fL (9.4-12.3); Monocytes Absolute Auto 0.7 X10*3/uL (0.1-1.2); Monocytes Percent Auto 7.2 % (2-11); Neutrophils Percent Auto 55.5 % (45-73); Platelet Count 258 X10*3/uL (160-400); Red Blood Count 4.37 X10*6/uL (4.20-5.50); Red Cell Distribution Width 12.8 % (11.0-16.0)
[2023-12-25 10:59] LABS: Estimated Average Glucose 131 mg/dL; Hemoglobin A1C 152.0098 umol/L; Hemoglobin A1c % 6.2 % (<6.0); Total Hemoglobin (HGBA1C) 3440.0603 umol/L
[2023-12-25 11:09] LABS: Alanine Aminotransferase 12 U/L (0-31); Alkaline Phosphatase 38 U/L (39-117); Anion Gap 11 (12-20); Aspartate Amino Transferase 20 U/L (5-31); Bilirubin Total 0.9 mg/dL (0.0-1.0); Blood Urea Nitrogen 16 mg/dL (9-16); Calcium 9.4 mg/dL (8.4-10.2); Carbon Dioxide 31 mmol/L (22-29); Chloride 104 mmol/L (96-108); Cholesterol 156 mg/dL (<200); Estimated Glomerular Filt Rate > 60; Glucose Fasting 128 mg/dL (60-99); HDL Cholesterol 51 mg/dL (>40); LDL Cholesterol Calculated 86 mg/dL (<100); Potassium 3.6 mmol/L (3.3-5.1); Sodium 142 mmol/L (135-145); Total Protein 6.9 g/dL (6.5-8.0); Triglycerides 96 mg/dL (<150)
[2023-12-25 11:41] LABS: Creatinine Urine 163.56 mg/dL; Microalbum/Creatinine Ratio Ur 9.7 ug/mg cr (<30)
== END 2023-12-25 09:33 | disposition home or self-care (01) ==
LOC: HO.10HDL 09:32
PROVIDERS: Visit Provider Internal Medicine
DX: I10 Essential (primary) hypertension (principal); E78.00 Pure hypercholesterolemia, unspecified; E11.9 Type 2 diabetes mellitus without complications
CPT/HCPCS: 36415; 80053; 80061; 82043; 82570; 83036; 85025

== ENCOUNTER 2024-01-09 10:29 | Outpatient (REF) | payer MEDICARE, SELFPAY ==
--- NOTE | ~2024-01-09 | MM_ITS ---
EXAMINATION: MM SCREENING DIGITAL BREAST TOMOSYNTHESIS, BILATERAL CLINICAL INFORMATION: Screening. Asymptomatic. COMPARISON: Mammography: Comparison is made with available priors TECHNIQUE: Digital breast mammography with tomosynthesis is performed in both the craniocaudal and mediolateral oblique views along with computer-aided detection (CAD). FINDINGS: There are scattered areas of fibroglandular density (ACR BI-RADS breast composition Category b). There are no significant masses, abnormal calcifications, or other abnormalities. MM/MM tomosynthesis screening BI IMPRESSION: No mammographic evidence of malignancy. ASSESSMENT: BI-RADS BI-RADS 1 - Negative RECOMMENDATION: Routine annual mammography screening. 1 year F/U This examination should not preclude the clinical evaluation of a suspicious palpable abnormality. This patient's information was entered into a reminder system with a target due date for their next mammogram. Electronically signed by: Tanesha Salas DO 01/18/2024 01:30 PM [facility]
== END 2024-01-09 10:30 | disposition home or self-care (01) ==
LOC: HO.MAMMO 10:29
PROVIDERS: PCP Internal Medicine; Visit Provider Internal Medicine
DX: Z12.31 Encounter for screening mammogram for malignant neoplasm of breast (principal)
CPT/HCPCS: 77063; 77067

== ENCOUNTER → 2024-01-09 11:00 | Outpatient (BNV) | payer MEDICARE, SELFPAY | PROVIDERS: PCP Internal Medicine; Visit Provider Internal Medicine | DX: Z12.31 Encounter for screening mammogram for malignant neoplasm of breast (principal) | CPT/HCPCS: 77063; 77067 ==

== ENCOUNTER 2024-03-26 08:40 | Outpatient (REF) | payer MEDICARE, SELFPAY | END 2024-03-26 08:41 | disposition home or self-care (01) | LOC: HO.SH 08:40 | PROVIDERS: Visit Provider Internal Medicine | DX: Z01.118 Encounter for examination of ears and hearing with other abnormal findings (principal); H90.3 Sensorineural hearing loss, bilateral | CPT/HCPCS: 92557 ==

== ENCOUNTER 2024-05-20 10:16 | Outpatient (AMB) | payer MEDICARE, SELFPAY ==
--- NOTE | 2024-05-20 10:55 | A.OFFPC_ITS ---
Vital Signs 05/20/24 11:14 Weight 252 lb BP 138/80 Blood Pressure Location Lt brachial Position Sitting Pulse 90 Pulse Source Auscultation Temp 97.8 F Temp Source Axillary Pulse Oximetry (%) 96 Oxygen Delivery Method Room Air Intake Visit Reasons: Routine Financial Planning Advisor Required: No Accompanied by: Self / Same As Patient Allergies sulfamethoxazole [From BACTRIM] Allergy (Intermediate, Unverified 05/20/24 10:57) FULL BODY RASH trimethoprim [From BACTRIM] Allergy (Intermediate, Unverified 05/20/24 10:57) FULL BODY RASH Sulfa (Sulfonamide Antibiotics) Allergy (Unknown, Verified 05/20/24 10:57) Unknown Tobacco use date assessed: 05/20/24 Fall risk assessment: No Falls in past year Last assessed Fall Risk: 05/20/24 Dental Screening Dental Screen Date: 05/20/24 Did you have a dental visit in the last 12 months?: Yes Did you have a dental problem in the last 6 months where you did not have access to dental care?: No [facility] Medical History (Updated 05/20/24 @ 11:25 by Jalen Simons MD) High cholesterol Hypothyroid HTN (hypertension) Diabetes 1.5, managed as type 2 Family History (Updated 05/20/24 @ 11:21 by Violetta Ta CMA) Mother No problems noted. Father No problems noted. Social History Housing: House Patient Tobacco Use Status: Never used Tobacco e-Cigarette/Vaping Use: Never Used service: No Current occupational status: retired Cognitive needs: No Hearing needs: Yes Vision needs: Yes (reading glasses) Questionnaire PHQ-9 Over the last 2 weeks, how often have you been bothered by any of the following problems? 1. Little interest or pleasure in doing things: not at all 2. Feeling down, depressed, or hopeless: not at all 3. Trouble falling or staying asleep, or sleeping too much: not at all 4. Feeling tired or having little energy: not at all 5. Poor appetite or overeating: not at all 6. Feeling bad about yourself - or that you are a failure or have let yourself or your family down: not at all 7. Trouble concentrating on things, such as reading the newspaper or watching television: not at all 8. Moving or speaking so slowly that other people could have noticed. Or the opposite - being so fidgety or restless that you have been moving around a lot more than usual: not at all 9. Thoughts that you would be better off or of hurting yourself in some way: not at all Total score: 0 Depression Screening Interpretation: Negative Depression Screening Done: Yes Source: Developed by Drs. Jasiel Santa, Chinyere Ro, Valdo Ayers and colleagues, with an educational anneliese from [employer]. Thrive Questionnaire Date Thrive assessed: 05/20/24 I am a: Patient Within the past 12 months, did the food you bought not last and you didn't have the money to get more?: Never true Within the past 12 months, did you worry whether your food would run out before you got money to buy more?: Never true Do you have trouble paying for medicines?: No Do you have trouble getting transportation to medical appointments?: No Do you have trouble paying your heating and electricity bill?: No Do you have trouble taking care of your child, family member or friend?: No Do you have trouble with day-to-day activities such as bathing, preparing meals, shopping, managing finances, etc.?: No Are you currently unemployed and looking for a job?: No Are you interested in more education?: No Currently or been in a relationship where the following occur: No concerns reported THRIVE Score: 0 AUDIT C Alcohol Use Questionnaire (AUDIT-C) 1. How often do you have a drink containing alcohol?: Never 3. How often do you have six or more drinks on one occasion?: Never Total Score: 0 SHELLEY-7 AMB Questionnaire SHELLEY-7 Date SHELLEY - 7 assessed: 05/20/24 Feeling nervous, anxious, or on edge: 0 = Not at all Not being able to stop or control worryin = Not at all Worrying too much about different things: 0 = Not at all Trouble relaxin = Not at all Being so restless that it is hard to sit still: 0 = Not at all Becoming easily annoyed or irritable: 0 = Not at all Feeling afraid as if something awful might happen: 0 = Not at all Total SHELLEY-7 score (0-4 normal; 5-9 mild; 10-14 moderate; 15-21 severe): 0 Source: Developed by Drs. Jasiel Santa, Chinyere Ro, Valdo Ayers and colleagues, with an educational anneliese from [employer]. Physical exam (Primary Care) Vital Signs: Last Vital Signs Temp 97.8 F 05/20/24 11:14 Pulse 90 05/20/24 11:14 BP 138/80 05/20/24 11:14 Pulse Ox 96 05/20/24 11:14 Oxygen Delivery Method Room Air 05/20/24 11:14 Care Plan Goal for BP management: BP is in range.Continue current meds BMI Assessment/Plan discussion: High (One pound per week weight loss suggested.) Tobacco/Smoking Status: Tobacco use Status Tobacco use date assessed 05/20/24 05/20/24 10:58 Patient Tobacco Use Status Never used Tobacco 05/20/24 10:58 e-Cigarette/Vaping Use Never Used 05/20/24 10:58 PHQ-9: PHQ-9 Score PHQ-9: Total score 0 05/20/24 10:58 Depression Screening Interpretation: Negative Thrive Assessment: Date of Thrive Assessment Date Thrive assessed 05/20/24 05/20/24 10:58 Currently or been in a relationship where the following occur: No concerns reported Advance Care Planning discussion: Exists, not on file Date of discussion: 05/20/24 Who was present: Pt Forms completed: Health Care Proxy Time spent: 1-15 minutes, not on file Actual minutes spent: 5 Coding Level of Care Code New Pt Level 4 (27905) Complex EM visit Add On G2211 Diagnoses HTN (hypertension) I10 Diabetes 1.5, managed as type 2 E13.9 High cholesterol E78.00 Hypothyroid E03.9 Additional Codes Vital Signs *Quality* - Advance Care Planning discussion: Exists, not on file ([id number]) Vital Signs *Quality* - Time spent: 1-15 minutes, not on file ([id number]) Assessment & Plan Assessment & Plan (1) HTN (hypertension): Code(s): I10 - Essential (primary) hypertension Category: Medical Plan: BP is in range. COntinue current medica (2) Diabetes 1.5, managed as type 2: Code(s): E13.9 - Other specified diabetes mellitus without complications Category: Medical Plan: A1c has been ordered (3) High cholesterol: Code(s): E78.00 - Pure hypercholesterolemia, unspecified Category: Medical Plan: Will call with results (4) Hypothyroid: Code(s): E03.9 - Hypothyroidism, unspecified Category: Medical Plan: TSH to be checked Plan History of Present Illness The patient is an 83-year-old female presenting for a wellness visit. She has confirmed that she is currently maintaining her prescribed medication regimen, and her prescription supply is sufficient. She reported no current health concerns or symptoms, including shortness of breath. The patient is active, capable of driving during the day, and continues to carry out daily tasks such as grocery shopping without difficulty. Social History Review of Systems - Respiratory: Denies shortness of breath. - Neurological: Denies difficulty driving; does not drive at night due to no need rather than incapacity. - General: Reports ability to conduct all usual activities. Physical Exam General: Appearance normal, both eyes and all related structures Nutritional Appearance: Well nourished Orientation/consciousness: Patient oriented x3 Limitations: No limitations Head: Normal to inspection Neck: Normal visual inspection, noted presence of a mole Chest: Normal palpation of entire chest wall Respiratory: Normal respiratory effort Neurology: Patient oriented x3 Results Plan During this wellness visit, I assessed the patient's ability to manage her medications effectively despite initial confusion. Her health is stable, and she is managing her activities of daily living well. I advised her to contact her pharmacy in advance when she requires medication refills. Follow-up is planned for six months to evaluate her ongoing health. Patient was informed and verbally consented to the use of an ambient scribe for clinic note documentation during this visit. Discussion Notes Patient Instructions - Continue taking medications as prescribed. - Call your pharmacy when running low on medications to arrange a refill. - Maintain current level of activity. - Follow up in six months, or sooner if any new health concerns develop. Medications: Discontinued cyclobenzaprine Discontinued Reason: Stopped on Transfer 10 mg PO Q8H PRN 10 tabs 0RF muscle spasm naproxen Discontinued Reason: Patient no longer taking 500 mg PO BID PRN 10 tabs 0RF pain tramadol Discontinued Reason: Patient Refused 50 mg PO BEDTIME PRN 5 tabs 0RF pain
[2024-05-20 11:14] VITALS: BP 138/80; PULSE 90; TEMP 36.6; O2SAT 96
--- OUTSIDE RECORDS SUMMARY | 2024-05-20 12:01 | XMS_ITS ---
Author Organization [facility] eileen Waldo Address [address] [place] [address] Care Team Providers Care Bus Company Manager Name Role Phone Fredrick Ghotra MD Primary Care Provider Asia Mejia Unavailable [phone] Allergies No Known Allergies REASON FOR VISIT At Risk Footcare Medications Medication SIG (Take, Route, Fr equency, Duration) Notes Start Date End Date Status Levothyroxine Sodium Active Furosemide 40 MG 1 tablet Orally Once a day Active Diovan Active Valsartan 320 MG Oral for 90 A ctive traMADol HCl 50 MG Oral for 5 Active metFORMIN HCl Active Simvastatin 10mg Act everett Synthroid Active Social History Tobacco Use: Social History Observation Description Date Details (start date - stop date) Never Smoker NA - NA Tobacco Use/Smoking Question Answer Notes Are you a: nonsmoker Additional Findings: Tobacco Non-User Current no n-smoker Tobacco use other than smoking: Question Answer Notes Are you an other tobacco user? No Vital Signs Height 5 ft 3 in in 01/17/2024 Weight 240 lbs 01/17/2024 BMI 42.51 kg/m2 01/17/2024 Blood pressure systolic 123 mm Hg 01/17/20 24 Blood pressure diastolic 70 mm Hg 024 Procedures Procedure Date Ordered Date Performed Result Body Sit e 99589-NHKHCGQ NAIL, 6 OR MORE 01/17/2024 N/A 38738-ZIIL SKIN LESIONS, 2 TO 4 01/17/2024 N/A Encounters Encounter Location Date Provider Diagnosis [facility] [address] [place] [address] 01/17/2024 Asia Burris Type 2 diabetes mellitus with diabetic polyneuropathy E11.42 and Tinea unguium B35.1 Assessments Encounter Date Diagnosis (ICD Code) Assessment Notes Treatment Notes Treatment Clinical Notes Section Notes 01/17/2024 Type 2 diabetes mellitus with diabetic polyneuropathy (ICD-10 - E11.42) 01/17/2024 Tinea unguium (ICD-10 - B35.1) Plan Of Treatment Pending Test Test Name Order Date 25907-UXAYVUC NAIL, 6 OR MORE 01/17/2024 26519-HUNP SKIN LESIONS, 2 TO 4 01/17/20 24 Next Appt Details Follow Up: prn, Reason: Provider Name:Asia mijares, 05/29/2024 11:00:00 AM, [address] [place] [address], [id number], Procedure Notes * Category Sub-Category Detail Notes Debride Nail 6-10 Nail debridement Performance o f this nail treatment by a nonprofessional would put this patients foot and overall health at risk. Therefore, debridement to affected nail(s), as described in exam, was performed extensively to reduce/remove overall nail length, girth, thickness, subungual debris, and necrotic tissue, by manual and/or electrical means through the use of a nail nipper and/or dremel-type grinder machine knife setter, to a more viable healthy nail plate or bed tissue 6-10 nails in total. Silver nitrate was used for any petechial bleeding as necessary. Definitive antifungal treatment options, both pharmaceutical and surgical, have been reviewed and discussed with the patient. The patient solely prefers the use of intermittent/as needed professional debridement services for their nail condition and understands the need for additional periodic treatments to maintain effectiveness in symptomatic relief - 63663 Keratoma Treatment Parring or Cutting o f Benign Hyperkeratotic Lesion(s) (-56) 2-4 Lesions - The Benign hyperkeratotic lesions, ( 4) in total, locations as stated and described in exam, were pared, and/or cut utilizing a sterile 15 blade, tissue nippers, and/or power dremel instrumentation - 78251 Progress Notes * Amanda ROBERTS MDOB:[birth year] (83 yo F)Acc No.[id number]:01/17/2024 Progress Note Patient:?Amanda ROBERTS Provider:?Asia Burris DPM :1940???Age:83 Y???Sex:Female D ate:01/17/2024 Address:[address] [place] [address] [phone] Pcp:Fredrick Ghotra MD Subjective: * Chief Complaints: * ???At Risk Footcare * HPI: ???At Risk footcare:?Pt States Last PCP Visit:?Date?12/18/2023 * ROS:?General/Constitutional:?Nausea?denies.?Vomiting?denies.?Hunger Thirst?denies.?Loss appetite?denies.?Chills?denies.?Fatigue?denies.?Fever?denies.?Night Sweats?denies.?Unexplained weight loss?denies.?Ophthalmologic:?Blurred vision?denies.?Red eye?denies.?HEENTM:?Dentures?denies.?Dizziness?denies.?Glasses/contacts?admits.?Retinopathy?den ies.?Blurred/double vision?denies.?TMJ?denies.?Discharge/drainage?denies.?Implants?denies.?Hard of hearing denies.?Difficulty chewing/swallowing/speaking?denies.?Nose bleeds?denies.?Sore mouth?denies.?Swollen glands?denies.?Respiratory:?On O xygen?denies.?Pneumonia/pleurisy?denies.?Bronchitis?denies.?Emphysema?denies.?Co ughing?denies.?Cough blood?denies.?Shortness of breath?denies.?Wheezing?denies.?Cardiovascular:?Pacemaker?denies.?MVP?denies.?WPW?denies.?CHF?denies.?Heart attack?denies.?Septal defect?denies.?Rapid beat?denies.?Chest pain ?denies.?Atrial Fib.?denies.?Murmur/Palpitations?denies.?Gastrointestinal:?Hemorrhoids?denies.?Stomach/Abdominal pain?denies.?Dark blood stool?denies.?Irritable bowel ?denies.?Constipation?denies.?Diarrhea?denies.?Vomiting?denies.?Hematology:?Swelling?denies.?Bruising?denies.?Bleeding problem?denies.?Genitourinary:?Blood urine?denies.?Frequent/Painfu/urination/bladder control?denies.?Kidney stones?denies.?Infection (UTI)?denies.?Nephropathy?denies.?Musculoskeletal:?Hammertoes?denies.?Bunions?denies.?Scoliosis/kyphosis?denies.?Muscle cramps / walking?denies.?Generalized aches and pains?denies.?Weakness?denies.?Integ.:?Arias?denies.?Scars?denies.?Corns/calluses?denies.?Ingrown nails?denies.?Painful nails?denies.?Rashes?denies.?Neurologic:?Difficulty sleeping?denies.?Bipolar?denies.?Brain disorder?denies.?Balance t rouble?denies.?Confusion?denies.?Fainting/blackouts?denies.?Headache?denies.?Dc mors?denies.? * Medical History:? * Surgical History:?laser surg mihir left knee replacement ight knee replacement 05/31/2021 * Hospitalization/Major Diagno stic Procedure:?Denies Past Hospitalization * Family History:?Mother: dece ased, diagnosed with Other specified conditions influencing health status.?Father: , diagnosed with Other specified conditions influencing health status.? Patient denies family history. * Social History:?Tobacco Use:?Tobacco Use/Smoking?Are you a:?nonsmoker ?Additional Findings: Tobacco Non-User?Current non-smoker ?Tobacco use other than smoking?Are you an other tobacco user??No * Medications:?TakingDiovan Fu rosemide 40 MG Tablet 1 tablet Orally Once a day Levothyroxine Sodium metFORMIN HCl Synthroid Simvastatin 10mg traMADol HCl 50 MG Tablet Oral Valsartan 320 MG Tablet Oral Medication List reviewed and reconciled with the patientTaking Diovan Taking Furosemide 40 MG Tablet 1 tablet Orally Once a day Taking Levothyroxine Sodium Taking metFORMIN HCl Taking Synthroid Taking Simvastatin 10mg Taking traMADol HCl 50 MG Tablet Oral Taking Valsartan 320 MG Tablet Oral Medication List reviewed and reconciled with the patient * Allergies:?N.K.D.A.yes[Aller gies Verified] Objective: * Vitals:?Ht: 5 ft 3 in, Wt: 2 40, BMI: 42.51, Shoe size: 9, BP: 123/70 mm Hg, BS: 120, Wt-k.86 kg. * ???Past Orders: ???Lab:HEMOGLOBIN A1C (GLYCO HEMOGLOBIN) (Order Date - 07/15/2023) (Collection Date & Time - 07/15/2023 09:39 AM) ? Value Reference Range ?HEMOGLOBIN A1C % (HH) 6.2 * Examination: ???General Examination: ?GENERAL APPEARANCE:?Reveals a pleasant, alert, well nourished, well- developed, well hydrated individual, who demonstrates proper attention to hygiene/body habitus, and is in no acute distress, Pt serves as own historian for office visit today.?ORIENTED:?person, place, and time.?Neurological: ?SENSORY:? Neurological exam demonstrates, reduced light touch sensation, reduced sharp/dull pin prick discrimination , B/L, 5.07 monofilament test performed at plantar aspects of 5 varied sites per foot shows sensation, reduced , B/L.?Nails: ?NAILS are:?Elongated, overgrown, dystrophic, lytic, greater than 3mm thick, discolored and friable with crumbly malodorous subungual debris.?Dermatologic: ?SKIN FINDINGS:?Skin exam reveals Keratotic lesion(s) located at medial first metatarsal head B/L, plantar heels B/L.?Vascular: ?DP PULSES(B):?02/16, B/L.?PT PULSES(B):?02/16, B/L.?CAPILLARY FILL TIME:?delayed, all digits, B/L.?TROPHIC CONDITION-TEXTURE/ELASTICITY/TURGOR/HAIR GROWTH(B):?normal,?decreased, B/L.?TEMPERTURE GRADIENT(C):?normal, warm to cool, proximal to distal, B/L, B/L.?Orthopedic: ?MUSCLE STRENGTH:?5/5 all groups in a symmetrical fashion, B/L.?Ophthalmology Referral: ?DIABETES EYE EXAM?Procedure Performed:?Yes ?Date of Exam Performed?08/14/2023 ?Findings of Diabetic Eye Exam:?no retinopathy??? Assessment: * Assessment: 1.?Type 2 diabetes mellitus with diabetic polyneuropathy - E11.42 (Primary)???2.?Tinea unguium - B35.1??? Plan: * Treatment: * Procedures:?Debride Nail 6-10:?Nail debridement?Performance of this nail treatment by a nonprofessional would put this patients foot and overall health at risk. Therefore, debridement to affected nail(s), as described in exam, was performed extensively to reduce/remove overall nail length, girth, thickness, subungual debris, and necrotic tissue, by manual and/or electrical means through the use of a nail nipper and/or dremel-type grinder machine knife setter, to a more viable healthy nail plate or bed tissue 6-10 nails in total. Silver nitrate was used for any petechial bleeding as necessary. Definitive antifungal treatment options, both pharmaceutical and surgical, have been reviewed and discussed with the patient. The patient solely prefers the use of intermittent/as needed professional debridement services for their nail condition and understands the need for additional periodic treatments to maintain effectiveness in symptomatic relief - 32351.?Keratoma Treatment:?Parring or Cutting of Benign Hyperkeratotic Lesion(s)?(-56) 2-4 Lesions - The Benign hyperkeratotic lesions, ( 4) in total, locations as stated and described in exam, were pared, and/or cut utilizing a sterile 15 blade, tissue nippers, and/or power dremel instrumentation - 32685.? * Procedure Codes:?72708 DEBRI DE NAIL, 6 OR MORE, Modifiers: XS 15371 TRIM SKIN LESIONS, 2 TO 4, Modifiers: XS * Follow Up:?prn * Images: * Sign off status: Completed true * Provider:?Asia Burris DPM Date:?1 03/19/2023 Generated for Nola lal/Jose Armando/Matteoitting on:?05/20/2024 12:01 PM EDT History and Physical Notes * HPI (History of Present Illness) Category Sub-Category Detail Notes Category Not es At Risk footcare Pt States Last PCP Visit: Date: 4 Examination Category Sub-Category Detail Notes Category Not es Neurological SENSORY: Neurological exa m demonstrates, reduced light touch sensation, reduced sharp/dull pin prick discrimination , B/L, 5.07 monofilament test performed at plantar aspects of 5 varied sites per foot shows sensation, reduced , B/L Dermatologic SKIN FINDINGS: Skin exam reveal s Keratotic lesion(s) located at medial first metatarsal head B/L, plantar heels B/L Orthopedic MUSCLE STRENGTH: 5/5 all groups in a symmetrical fashion, B/L General Examination GENERAL APPEARANCE: Reveals a pleasant, alert, well nourished, well-developed, well hydrated individual, who demonstrates proper attention to hygiene/body habitus, and is in no acute distress, Pt serves as own historian for office visit today ORIENTED: person, place, and t kalen Ophthalmology Referral DIABETES EYE EXAM Procedure Perform ed:: Yes ?Date of Exam Performed: 08/14/2023 Findings of Diabetic Eye Exam:: no retin opathy Vascular DP PULSES (B): 14, B/L PT PULSES (B): 4, B/L CAPILLARY FILL TIME: delayed, all digits , B/L TEMPERTURE GRADIENT (C): normal, warm to cool, proximal to distal, B/L, B/L TROPHIC CONDITION-TEXTURE/ELASTICITY/TURGOR/HAIR GROWTH (B): normal, decreased, B/L Nails NAILS are: Elongated, overg rown, dystrophic, lytic, greater than 3mm thick, discolored and friable with crumbly malodorous subungual debris
--- OUTSIDE RECORDS SUMMARY | 2024-05-20 12:01 | XMS_ITS ---
Author Organization [facility] eileen [place] Address [address] [place] [address] Care Team Providers Care Plug And Mold Finisher Name Role Phone Fredrick Ghotra MD Primary Care Provider Asia Mejia Unavailable [phone] Zachary Wells Unavailable [phone] Allergies No Known Allergies REASON FOR VISIT Painful nail(s) aggrevated by shoes and causing difficulty standing/walking. Medications Medication SIG (Take, Route, Fr equency, Duration) Notes Start Date End Date Status Levothyroxine Sodium Active Furosemide 40 MG 1 tablet Orally Once a day Active Diovan Active Valsartan 320 MG Oral for 90 A ctive traMADol HCl 50 MG Oral for 5 Active Simvastatin 10mg Act everett Synthroid Active metFORMIN HCl Active Social History Tobacco Use: Social History Observation Description Date Details (start date - stop date) Never Smoker NA - NA Tobacco Use/Smoking Question Answer Notes Are you a: nonsmoker Additional Findings: Tobacco Non-User Current no n-smoker Alcohol Screen Question Answer Notes Did you have a drink containing alcohol in the p ast year? No Points 0 Interpretation Negative Tobacco use other than smoking: Question Answer Notes Are you an other tobacco user? No Vital Signs Height 5 ft 3 in in 06/28/2023 Weight 240 lbs 06/28/2023 BMI 42.51 kg/m2 06/28/2023 Blood pressure systolic 123 mm Hg 06/28/19 24 Blood pressure diastolic 70 mm Hg 024 Encounters Encounter Location Date Provider Diagnosis [facility] [address] [place] [address] 06/28/2023 Zachary Wells Tinea unguium B35.1 ; Type 2 diabetes mellitus with diabetic polyneuropathy E11.42 ; Pain in right toe(s) M79.674 and Pain in left toe(s) M79.675 Assessments Encounter Date Diagnosis (ICD Code) Assessment Notes Treatment Notes Treatment Clinical Notes Section Notes 06/28/2023 Tinea unguium (ICD-10 - B35.1) 06/28/2023 Type 2 diabetes mellitus with diabetic polyneuropathy (ICD-10 - E11.42) 06/28/2023 Pain in right toe(s) (ICD-10 - M79.674) 06/28/2023 Pain in left toe(s) (ICD-10 - M79.675) Plan Of Treatment Next Appt Details Follow Up: 3 Months, Reason: Provider Name:Asia Giordano maryana, 05/29/2024 11:00:00 AM, [address] [place] [address], [phone], Procedure Notes * Category Sub-Category Detail Notes Debride Nail 6-10 Nail debridement Nail debridem ent performed extensively to reduce/remove overall nail length and girth, subungual debris, and necrotic tissue, by manual and electrical means with use of a nail nipper and/or dremel, to more viable healthy nail plate or bed tissue 6-10. Silver nitrate used for any petechial bleeding as necessary. Patient chooses, no pharmaceutical tx (85574) Keratoma Treatment Parring or Cutting o f Benign Hyperkeratotic Lesion(s) 32451 ( >4 Lesions) - The Benign hyperkeratotic lesions, as described above were pared, and/or cut utilizing a sterile #15 blade, tissue nippers, and/or dremel Progress Notes * Amanda ROBERTS MDOB:[birth year] (82 yo F)Acc No.[id number]:06/28/2023 Progress Note Patient:?Amanda Roberts Provider:?Zachary Wells DPM :1940???Age:82 Y???Sex:Female D ate:06/28/2023 Address:[address] [place], [place] [id number] Pcp:Fredrick Ghotra MD Subjective: * Chief Complaints: * ??? Painful nail(s) aggrevat ed by shoes and causing difficulty standing/walking. * HPI: ???Painful Nails:?Pt States Last PCP Visit:?Date:?06/14/2023 ?Misc:?pt had right knee sx with NEB 05/31/21.? * ROS:?General/Constitutional:?Nausea?denies.?Vomiting?denies.?Hunger Thirst?denies.?Loss appetite?denies.?Chills?denies.?Fatigue?denies.?Fever?denies.?Night Sweats?denies.?Unexplained weight loss?denies.?Ophthalmologic:?Blurred vision?denies.?Red eye?denies.?HEENTM:?Dentures?denies.?Dizziness?denies.?Glasses/contacts?admits.?Retinopathy?de nies.?Blurred/double vision?denies.?TMJ?denies.?Discharge/drainage?denies.?Implants?denies.?Hard of hearing denies.?Difficulty chewing/swallowing/speaking?denies.?Nose bleeds?denies.?Sore mouth?denies.?Swollen glands?denies.?Respiratory:?On Oxygen?denies.?Pneumonia/pleurisy?denies.?Bronchitis?denies.?Emphysema?denies.?C oughing?denies.?Cough blood?denies.?Shortness of breath?denies.?Wheezing?denies.?Cardiovascular:?Pacemaker?denies.?MVP?denies.?WPW?denies.?CHF?denies.?Heart attack?denies.?Septal defect?denies.?Rapid beat?denies.?Chest pain ?denies.?Atrial Fib.?denies.?Murmur/Palpitations?denies.?Gastrointestinal:?Hemorrhoids?denies.?Stomach/Abdominal pain?denies.?Dark blood stool?denies.?Irritable bowel ?denies.?Constipation?denies.?Diarrhea?denies.?Vomiting?denies.?Hematology:?Swelling?denies.?Bruising?denies.?Bleeding problem?denies.?Genitourinary:?Blood urine?denies.?Frequent/Painfu/urination/bladder control?denies.?Kidney stones?denies.?Infection (UTI)?denies.?Nephropathy?denies.?Musculoskeletal:?Hammertoes?denies.?Bunions?denies.?Scoliosis/kyphosis?denies.?Muscle cramps / walking?denies.?Generalized aches and pains?denies.?Weakness?denies.?Integ.:?Arias?denies.?Scars?denies.?Corns/calluses?denies.?Ingrown nails?denies.?Painful nails?denies.?Rashes?denies.?Neurologic:?Difficulty sleeping?denies.?Bipolar?denies.?Brain disorder?denies.?Balance trouble?denies.?Confusion?denies.?Fainting/blackouts?denies.?Headache?denies.?Tr emors?denies.? * Medical History:? * Surgical History:?laser surg [...] than smoking?Are you an other tobacco user??No ???Drugs/Alcohol:?Drugs?Have you used drugs other than those for medical reasons in the past 12 months??No ?Alcohol Screen?Did you have a drink containing alcohol in the past year??No ?Points?0 ?Interpretation?Negative ???Miscellaneous:?Caffeine: yes, frequency:, 1-2 cups per day. ?Children: yes, 1. ?Exercise: yes, gym 3x per week. ?Marital status: . ?Occupation: retired institutional cook. * Medications:?TakingDiovan Fu rosemide 40 MG Tablet 1 tablet Orally Once a dayLevothyroxine Sodium metFORMIN HCl Synthroid Simvastatin 10mg traMADol HCl 50 MG Tablet Oral Valsartan 320 MG Tablet Oral Medication List reviewed and reconciled with the patientTaking Diovan Taking Furosemide 40 MG Tablet 1 tablet Orally Once a dayTaking Levothyroxine Sodium Taking metFORMIN HCl Taking Synthroid Taking Simvastatin 10mg Taking traMADol HCl 50 MG Tablet Oral Taking Valsartan 320 MG Tablet Oral Medication List reviewed and reconciled with the patient * Allergies:?N.K.D.A.yes[Aller gies Verified] Objective: * Vitals:?Ht: 5 ft 3 in, Wt:24 0, BMI:42.51, Shoe size:9, BP:123/70 mm Hg, BS:120. * ???Past Orders: ???Lab:HEMOGLOBIN A1C (GLYCO HEMOGLOBIN) (Order Date - 06/28/2023) (Collection Date - 06/14/2023) * Examination: ???Neurological: ?SENSORY:?exam demonstrates. reduced vibration lower extremity, at Forefoot, at Midfoot, B/L, 5.07 monofilament test performed at plantar aspects of 5 varied sites per foot shows sensation, reduced , B/L.?Vascular: ?DP PULSES:?1/4, B/L.?PT PULSES:?0/4. B/L.?Nails: ?NAILS are:?elongated,overgrown,dystrophic,greater than 3mm thick,discolored and friable with crumbly malodorous subungual debris, with dull pain on palpation due to neuropathy, 1-5 B/L.?Dermatologic: ?SKIN FINDINGS:?Skin exam reveals Keratotic lesion(s) located at, Plantar, TA, T1, T2, Dorsal, T4, Plantar, T5, T6, T7, SUB MTH (s), 1, B/L .?Orthopedic: ?DIGITAL DEFORMITIES:?Digital contracture, PIPJ, 2-5 B/L, incompl-reducable to push-up test, no over, nor underlapping.?FOOTWEAR:?good condition.?Ophthalmology Referral: ?DIABETES EYE EXAM?Diabetic Retinopathy Screening:?Yes 2020 ?Findings of Diabetic Eye Exam:?no retinopathy??? Assessment: * Assessment: 1.?Tinea unguium - B35.1 (Pr imary)?2.?Type 2 diabetes mellitus with diabetic polyneuropathy - E11.42?3.?Pain in right toe(s) - M79.674?4.?Pain in left toe(s) - M79.675? Plan: * Treatment: * Procedures:?Debride Nail 6-10:?Nail debridement?Nail debridement performed extensively to reduce/remove overall nail length and girth, subungual debris, and necrotic tissue, by manual and electrical means with use of a nail nipper and/or dremel, to more viable healthy nail plate or bed tissue 6-10. Silver nitrate used for any petechial bleeding as necessary. Patient chooses, no pharmaceutical tx (09763).?Keratoma Treatment:?Parring or Cutting of Benign Hyperkeratotic Lesion(s)?03618 ( >4 Lesions) - The Benign hyperkeratotic lesions, as described above were pared, and/or cut utilizing a sterile #15 blade, tissue nippers, and/or dremel.? * Procedure Codes:?41077 DEBRI DE NAIL, 6 OR MORE, Modifiers: XS 52346 TRIM SKIN LESIONS, OVER 4, Modifiers: XS * Follow Up:?3 Months * Images: * Sign off status: Completed true * Provider:?Zachary Wells DPM Date:? 024 Generated for Nola lal/Jose Armando/Wilian on:?05/20/2024 12:01 PM EDT History and Physical Notes * HPI (History of Present Illness) Category Sub-Category Detail Notes Category Not es Painful Nails Misc: pt had right knee sx with N EB 05/31/21 Pt States Last PCP Visit: Date:: 06/14/2023 Examination Category Sub-Category Detail Notes Category Not es Neurological SENSORY: exam demonstrate s. reduced vibration lower extremity, at Forefoot, at Midfoot, B/L, 5.07 monofilament test performed at plantar aspects of 5 varied sites per foot shows sensation, reduced , B/L Dermatologic SKIN FINDINGS: Skin exam reveal s Keratotic lesion(s) located at, Plantar, TA, T1, T2, Dorsal, T4, Plantar, T5, T6, T7, SUB MTH (s), 1, B/L Orthopedic FOOTWEAR EVALUATION: good condition DIGITAL DEFORMITIES: Digital contracture , PIPJ, 2-5 B/L, incompl-reducable to push-up test, no over, nor underlapping Ophthalmology Referral DIABETES EYE EXAM Diabetic Reti nopathy Screening:: Yes 2020 Findings of Diabetic Eye Exam:: no retin opathy Vascular DP PULSES (B): 1/4, B/L PT PULSES (B): 0/4. B/L Nails NAILS are: elongated,overgr own,dystrophic,greater than 3mm thick,discolored and friable with crumbly malodorous subungual debris, with dull pain on palpation due to neuropathy, 1-5 B/L
--- OUTSIDE RECORDS SUMMARY | 2024-05-20 12:01 | XMS_ITS ---
Author Organization [facility] Address [address] [place] [address] Care Team Providers Care Lighter Captain Name Role Phone Fredrick Ghotra MD Primary Care Provider Asia Mejia Unavailable [phone] Zachary Wells Unavailable [phone] Allergies No Known Allergies REASON FOR VISIT Painful nail(s) aggrevated by shoes and causing difficulty standing/walking. Medications Medication SIG (Take, Route, Fr equency, Duration) Notes Start Date End Date Status Diovan Active Valsartan 320 MG Oral for 90 A ctive traMADol HCl 50 MG Oral for 5 Active Simvastatin 10mg Act everett Synthroid Active metFORMIN HCl Active Levothyroxine Sodium Active Furosemide 40 MG 1 tablet Orally Once a day Active Social History Tobacco Use: Social History Observation Description Date Details (start date - stop date) Never Smoker NA - NA Tobacco Use/Smoking Question Answer Notes Are you a: nonsmoker Additional Findings: Tobacco Non-User Current no n-smoker Tobacco use other than smoking: Question Answer Notes Are you an other tobacco user? No Vital Signs Height 5 ft 3 in in 09/27/2023 Weight 240 lbs 09/27/2023 BMI 42.51 kg/m2 09/27/2023 Encounters Encounter Location Date Provider Diagnosis [facility] [address] [place] [address] 09/27/2023 Zachary Wells Tinea unguium B35.1 ; Type 2 diabetes mellitus with diabetic polyneuropathy E11.42 ; Pain in right toe(s) M79.674 and Pain in left toe(s) M79.675 Assessments Encounter Date Diagnosis (ICD Code) Assessment Notes Treatment Notes Treatment Clinical Notes Section Notes 09/27/2023 Tinea unguium (ICD-10 - B35.1) 09/27/2023 Type 2 diabetes mellitus with diabetic polyneuropathy (ICD-10 - E11.42) 09/27/2023 Pain in right toe(s) (ICD-10 - M79.674) 09/27/2023 Pain in left toe(s) (ICD-10 - M79.675) Plan Of Treatment Next Appt Details Follow Up: 3 Months, Reason: Provider Name:Asia mijares, 05/29/2024 11:00:00 AM, [address] [place] [address], [phone], Procedure Notes * Category Sub-Category Detail Notes [...] as necessary. Patient chooses, no pharmaceutical tx (94679) Keratoma Treatment Parring or Cutting o f Benign Hyperkeratotic Lesion(s) 89969 ( >4 Lesions) - The Benign hyperkeratotic lesions, as described above were pared, and/or cut utilizing a sterile #15 blade, tissue nippers, and/or dremel Progress Notes * Amanda ROBERTS MDOB:[birth year] (83 yo F)Acc No.[id number]:09/27/2023 Progress Note Patient:?ARMANDOZullyAmanda M Provider:?Zachary Wells DPM :1940???Age:83 Y???Sex:Female D ate:09/27/2023 Address:[address] [place] [address] Diana nobles [id number] Pcp:Fredrick Ghotra MD Subjective: * Chief Complaints: * ??? Painful nail(s) aggrevat ed by shoes and causing difficulty standing/walking. * HPI: ???Painful Nails:?Pt States Last PCP Visit:?Date:?07/15/2023 ?Misc:?pt had right knee sx with NEB [...] than smoking?Are you an other tobacco user??No ???Miscellaneous:?Caffeine: yes, frequency:, 1-2 cups per day. ?Children: yes, 1. ?Exercise: yes, gym 3x per week. ?Marital status: . ?Occupation: retired relief cook. * Medications:?TakingDiovan Fu rosemide 40 MG [...] 2 40, BMI: 42.51, Shoe size: 9, BS: 120, Wt-k.86 kg. * Examination: ???Neurological: ?SENSORY:?exam demonstrates. reduced vibration lower extremity, at Forefoot, at Midfoot, B/L, 5.07 monofilament test performed at plantar aspects of 5 varied sites per foot shows sensation, reduced , B/L.?Vascular: ?DP PULSES (B):?1/4, B/L.?PT PULSES (B):?0/4. B/L.?Nails: ?NAILS are:?elongated,overgrown,dystrophic,greater than 3mm thick,discolored and [...] condition.?Ophthalmology Referral: ?DIABETES EYE EXAM?Diabetic Retinopathy Screening:?Yes 2023 ?Findings of Diabetic Eye Exam:?no retinopathy?General Examination: ?FOOT EXAM:?Lower Extremity Neurological Exam performed:?Yes ?Date?09/27/2023??? Assessment: * Assessment: 1.?Tinea unguium - B35.1 (Pr imary)???2.?Type 2 diabetes mellitus with diabetic polyneuropathy - E11.42???3.?Pain in right toe(s) - M79.674???4.?Pain in left toe(s) - M79.675??? Plan: * Treatment: * Procedures:?Debride Nail 6-10:?Nail debridement?Nail debridement performed extensively to reduce/remove overall nail length and girth, subungual debris, and necrotic tissue, by manual and electrical means with use of a nail nipper and/or dremel, to more viable healthy nail plate or bed tissue 6-10. Silver nitrate used for any petechial bleeding as necessary. Patient chooses, no pharmaceutical tx (28870).?Keratoma Treatment:?Parring or Cutting of Benign Hyperkeratotic Lesion(s)?49949 ( >4 Lesions) - The Benign hyperkeratotic lesions, as described above were pared, and/or cut utilizing a sterile #15 blade, tissue nippers, and/or dremel.? * Procedure Codes:?63034 DEBRI DE NAIL, 6 OR MORE, Modifiers: XS 56496 TRIM SKIN LESIONS, OVER 4, Modifiers: XS * Follow Up:?3 Months * Images: * Sign off status: Completed true * Provider:Aleida Wells DPM Date:? 024 Generated for Nola lal/Jose Armando/Wilian on:?05/20/2024 12:01 PM EDT History and Physical Notes * HPI (History of Present Illness) Category Sub-Category Detail Notes Category Not es Painful Nails Misc: pt had right knee sx with N EB 05/31/21 Pt States Last PCP Visit: Date:: 07/15/2023 Examination Category Sub-Category Detail Notes Category Not [...] to push-up test, no over, nor underlapping General Examination FOOT EXAM: Lower Extrem ity Neurological Exam performed:: Yes Date: 09/27/2023 Ophthalmology Referral DIABETES EYE EXAM Diabetic Reti nopathy Screening:: Yes 2023 Findings of Diabetic Eye Exam:: no retin opathy Vascular DP PULSES (B): 1/4, B/L PT PULSES (B): 0/4. B/L Nails NAILS are: elongated,overgr own,dystrophic,greater than 3mm thick,discolored and friable with crumbly malodorous subungual debris, with dull pain on palpation due to neuropathy, 1-5 B/L
--- OUTSIDE RECORDS SUMMARY | 2024-05-20 12:01 | XMS_ITS | Patient Health Record ---
Author Organization [facility] Address [address] [place] [place] [address] Care Team Providers Care Window Sash Installer Name Role Phone Fredrick Ghotra MD Primary Care Provider Asia Mejia Unavailable [phone] RussellWilliamZachary Unavailable [phone] Allergies No Known Allergies Results Component Value Reference Range Notes HEMOGLOBIN A1C (GLYCOHEMOGLO BIN) Reviewed date:06/28/2023 10:54:53 AM Interpretation: Performing Lab: Notes/Report: HEMOGLOBIN A1C (GLYCOHEMOGLO BIN) Reviewed date:09/27/2023 09:40:42 AM Interpretation: Performing Lab: Notes/Report: HEMOGLOBIN A1C % (HH) 6.2 Reason For Referral No Information Medications Medication SIG (Take, Route, Fr equency, Duration) Notes Start Date End Date Status Levothyroxine Sodium Active Furosemide 40 MG 1 tablet Orally Once a day Active metFORMIN HCl Active Diovan Active Simvastatin 10mg Act everett Synthroid Active Valsartan 320 MG Oral for 90 A ctive traMADol HCl 50 MG Oral for 5 Active Immunizations Vaccine Route Administration Date Status Comme nts COVID-19 Pfizer BioNTech Vaccine Unknown 03/20/2020 Administered 1st 04/13/20 2nd 03/20/20 Influenza Unknown 09/21/2015 Pending Influenza Unknown 01/09/2017 Administered Influenza Unknown 11/29/2017 Administered Influenza Unknown 11/11/2021 Administered Influenza Unknown 10/14/2022 Administered Pneumococcal Unknown 12/08/2014 Administered Social History Tobacco Use: Social History Observation [...] Are you an other tobacco user? No Problems Problem Type SNOMED Code ICD Code Onset Dates Problem Status W/U Status Risk Notes Problem Polyneuropathy due to type 2 diabetes mellitus (673985874) Type 2 diabetes mellitus with diabetic polyneuropathy (E11.42) Active confirmed Vital Signs Blood pressure diastolic 70 mm Hg 01/17/2024 Height 5 ft 3 in in 01/17/2024 Blood pressure systolic 123 mm Hg 01/17/2024 Weight 240 lbs 01/17/2024 BMI 42.51 kg/m2 01/17/2024 Procedures Procedure Date Ordered Date Performed Result Body Sit e 65962-VRITLML NAIL, 6 OR MORE 01/17/2024 N/A 04906-VKLR SKIN LESIONS, 2 TO 4 01/17/2024 N/A Encounters Encounter [facility] [address] [facility]/28/[facility]23 Zachary Wells Tinea unguium B35.1 ; Type 2 diabetes mellitus with diabetic polyneuropathy E11.42 ; Pain in right toe(s) M79.674 and Pain in left toe(s) M79.[address] [address] 09/27/2023 Zachary Wells Tinea unguium B35.1 ; Type 2 diabetes mellitus with diabetic polyneuropathy E11.42 ; Pain in right toe(s) M79.674 and Pain in left toe(s) M79.[address] [address] 01/17/2024 Asia Burris Type 2 diabetes mellitus with diabetic polyneuropathy E11.42 and Tinea unguium B35.1 Assessments Encounter Date Diagnosis (ICD Code) Assessment Notes Treatment Notes Treatment Clinical Notes Section Notes 06/28/2023 Type 2 diabetes mellitus with diabetic polyneuropathy (ICD-10 - E11.42) 09/27/2023 Tinea unguium (ICD-10 - B35.1) 06/28/2023 Tinea unguium (ICD-10 - B35.1) 01/17/2024 Type 2 diabetes mellitus with diabetic polyneuropathy (ICD-10 - E11.42) 01/17/2024 Tinea unguium (ICD-10 - B35.1) 06/28/2023 Pain in right toe(s) (ICD-10 - M79.674) 09/27/2023 Type 2 diabetes mellitus with diabetic polyneuropathy (ICD-10 - E11.42) 09/27/2023 Pain in right toe(s) (ICD-10 - M79.674) 06/28/2023 Pain in left toe(s) (ICD-10 - M79.675) 09/27/2023 Pain in left toe(s) (ICD-10 - M79.675) Plan Of Treatment Pending Test Test Name Order Date 50328-JKIUBKA NAIL, 6 OR MORE 07/27/2011 61032-WWLQCKE NAIL, 6 OR MORE 10/27/2011 83447-BOKAJNK NAIL, 6 OR MORE 01/26/2012 40136-RDVFGYP NAIL, 6 OR MORE 05/24/2012 86638-HJLVGTC NAIL, 6 OR MORE 09/24/2012 00399-DUXFIVC NAIL, 6 OR MORE 01/14/2013 57951-FUUSWGF NAIL, 6 OR MORE 06/10/2013 63471-KDOFVYD NAIL, 6 OR MORE 10/21/2013 98814-NCKMIPL NAIL, 6 OR MORE 01/20/2014 97978-DLOGMNX NAIL, 6 OR MORE 05/21/2014 85957-JSNXOFQ NAIL, 6 OR MORE 08/20/2014 24281-IBQLSKQ NAIL, 6 OR MORE 12/17/2014 94020-WNWICBA NAIL, 6 OR MORE 05/25/2015 76247-XEOMDTD NAIL, 6 OR MORE 09/21/2015 45329-NGOSGMT NAIL, 6 OR MORE 01/21/2016 77824-XVQTDXL NAIL, 6 OR MORE 06/06/2016 70058-GPRNTCE NAIL, 6 OR MORE 10/10/2016 05427-UYPAEQC NAIL, 6 OR MORE 01/23/2017 15339-IRMQDPH NAIL, 6 OR MORE 06/14/2017 77191-XGNDQEN NAIL, 6 OR MORE 10/18/2017 72450-LGJOQMT NAIL, 6 OR MORE 01/17/2018 48546-DMIAOKQ NAIL, 6 OR MORE 01/17/2024 51535-Inoyaofc Plate 10/27/2011 23820-Vqpkoxmc Plate 01/26/2012 35313-UFRB SKIN LESIONS, OVER 4 01/26/20 12 18183-VLTG SKIN LESIONS, OVER 4 05/25/19 13 74535-GXWV SKIN LESIONS, OVER 4 10/27/19 12 21362-FOZX SKIN LESIONS, OVER 4 07/27/19 12 38504-WLJR SKIN LESIONS, OVER 4 10/22/19 14 14073-GGOA SKIN LESIONS, OVER 4 06/11/19 14 11359-WAUR SKIN LESIONS, OVER 4 01/15/20 13 65038-FQOD SKIN LESIONS, OVER 4 09/25/19 13 48789-YWOQ SKIN LESIONS, OVER 4 06/07/19 17 30482-MVLP SKIN LESIONS, OVER 4 10/11/19 17 23411-IHTC SKIN LESIONS, OVER 4 01/21/20 16 84761-FJHQ SKIN LESIONS, OVER 4 09/21/19 16 27283-KKQU SKIN LESIONS, OVER 4 05/25/19 16 86412-EXQG SKIN LESIONS, OVER 4 12/18/19 15 57849-XEAS SKIN LESIONS, OVER 4 08/21/19 15 64415-RPCH SKIN LESIONS, OVER 4 05/22/19 15 38480-XCDY SKIN LESIONS, OVER 4 01/21/20 14 42567-GVJY SKIN LESIONS, OVER 4 05/17/19 19 64517-HLHW SKIN LESIONS, OVER 4 08/21/19 19 41654-QTLR SKIN LESIONS, OVER 4 01/24/20 19 41016-KBBH SKIN LESIONS, OVER 4 06/05/19 20 11552-OJVN SKIN LESIONS, OVER 4 09/30/19 20 64686-QUEE SKIN LESIONS, OVER 4 01/06/20 20 65164-BWWR SKIN LESIONS, OVER 4 06/30/19 21 83975-UXTH SKIN LESIONS, OVER 4 10/15/19 21 85763-HCWO SKIN LESIONS, OVER 4 05/28/19 22 65152-FGDN SKIN LESIONS, OVER 4 01/18/20 18 88007-RNLA SKIN LESIONS, OVER 4 10/19/19 18 68040-HRKK SKIN LESIONS, OVER 4 06/15/19 18 08946-VZVS SKIN LESIONS, OVER 4 01/24/20 17 77215-YDCM SKIN LESIONS, 2 TO 4 01/17/20 24 Next Appt Details Provider Name:Asia mijares, 05/29/2024 11:00:00 AM, [address] [facility], [place], [address], Insurance Providers Payer Name Payer Address Payer Phone Subscriber Number Group Number Insured Name Patient Relationship to Insured Coverage Start Date Coverage End Date Medicare [employer] [address] [facility] [address] [id number] Amanda Hughes Self - patient is the insured 8 [employer] [address] [place] [address] [id number] Amanda Hughes Self - patient is the insured Medical (General) History Medical History History ICD Code hypertension type II diabetes Surgical History Surgery Date(Month/Year) laser surgery left knee replacement 04/2020 right knee replacement 05/31/2021
== END 2024-05-20 11:33 | disposition home or self-care (01) ==
LOC: HO.HMCHD 10:16
PROVIDERS: PCP Internal Medicine; Visit Provider Internal Medicine
DX: I10 Essential (primary) hypertension (principal); E13.9 Other specified diabetes mellitus without complications; E78.00 Pure hypercholesterolemia, unspecified; E03.9 Hypothyroidism, unspecified; Z00.00 Encounter for general adult medical examination without abnormal findings

== ENCOUNTER → 2024-05-20 10:16 | Outpatient (BNVA) | payer MEDICARE, SELFPAY | PROVIDERS: PCP Internal Medicine; Visit Provider Internal Medicine | DX: I10 Essential (primary) hypertension (principal); E13.9 Other specified diabetes mellitus without complications; E78.00 Pure hypercholesterolemia, unspecified; E03.9 Hypothyroidism, unspecified | CPT/HCPCS: 96127; 99202 ==

== ENCOUNTER 2024-11-18 09:25 | Outpatient (AMB) | payer MEDICARE, SELFPAY ==
--- NOTE | 2024-11-18 09:19 | MHC.PC.OV ---
Vital Signs 11/18/24 09:33 Height 5 ft 4 in Weight 252 lb BMI 43.3 BP 174/54 H Blood Pressure Location Lt brachial Position Sitting Respiration 20 Pulse 81 Pulse Source Pulse Oximeter Temp 97.9 F Temp Source Temporal Artery Scan Pulse Oximetry (%) 95 Oxygen Delivery Method Room Air Intake Visit Reasons: 6 Month F/U Furnace Maintenance Required: No Accompanied by: Self / Same As Patient Allergies sulfamethoxazole (From BACTRIM) Allergy (Intermediate, Verified 11/18/24 09:19) FULL BODY RASH trimethoprim (From BACTRIM) Allergy (Intermediate, Verified 11/18/24 09:19) FULL BODY RASH Sulfa (Sulfonamide Antibiotics) Allergy (Unknown, Verified 11/18/24 09:19) Unknown Medication List - Last Reconciled 11/18/24 by Gavin Avila MD furosemide 40 mg PO DAILY glipizide ER 5 mg PO DAILY levothyroxine 100 mcg PO DAILY metformin 1,000 mg PO BID multivitamin 1 tab PO DAILY simvastatin 10 mg PO BEDTIME valsartan 320 mg PO DAILY Tobacco use date assessed: 05/20/24 Fall risk assessment: 2 + Falls in past year Last assessed Fall Risk: 11/18/24 Dental Screening Dental Screen Date: 11/18/24 Did you have a dental visit in the last 12 months?: Yes Did you have a dental problem in the last 6 months where you did not have access to dental care?: No Was dental information given to patient?: Patient has dentist HPI HPI Comments History of Present Illness Details The patient is an 84-year-old female presenting with hypertension management and medication review. She has a history of essential hypertension, which was noted to be extremely elevated during today's visit. Past blood pressure levels were not documented by her, though she generally experiences high readings during check-ups. The patient also has a history of type 2 diabetes mellitus, treated with glipizide and metformin. Her last hemoglobin A1c measured at 6.2% in December of the previous year was indicative of good glycemic control. Additional medical history includes hypothyroidism managed with levothyroxine and hyperlipidemia managed with simvastatin. Peripheral edema was noted bilaterally, with a current medication regimen that includes furosemide, which she has been taking long-term without recent inquiry into its necessity. She exhibits mild swelling in her lower extremities (1+ pitting edema). Medical History: - Essential Hypertension - Type 2 Diabetes Mellitus - Hypothyroidism - Hyperlipidemia Medications: - Glipizide 5 mg daily for diabetes - Metformin 1000 mg twice daily for diabetes - Levothyroxine 100 mcg daily for hypothyroidism - Simvastatin 10 mg daily for hyperlipidemia - Valsartan 320 mg daily for hypertension - Furosemide (dose not specified) for peripheral edema Diagnostic Results: - Labs: Hemoglobin A1c from December at 6.2% - Labs: TSH from May at 1.26 - Labs: LDL cholesterol at 86 (December) Social History: - Family Status: Long-term marriage, 61 years - Activities: There are no specific mentions of employment or physical activities. COUNTS INCLUDE 234 BEDS AT [facility] Medical History (Updated 11/18/24 @ 09:53 by Gavin Avila MD) Hyperlipidemia Diabetes High cholesterol Hypothyroid HTN (hypertension) Diabetes 1.5, managed as type 2 Surgical History (Updated 06/11/24 @ 09:10 by Gill West) History of colonoscopy (~11/09/16) Family History (Updated 05/20/24 @ 11:21 by Violetta Ta MA) Mother No problems noted. Father No problems noted. Social History Housing: House Patient Tobacco Use Status: Never used Tobacco e-Cigarette/Vaping Use: Never Used service: No Current occupational status: retired Cognitive needs: No Hearing needs: Yes Vision needs: Yes (reading glasses) Questionnaire Thrive Questionnaire Date Thrive assessed: 05/20/24 SHELLEY-7 AMB Questionnaire SHELLEY-7 Date SHELLEY - 7 assessed: 05/20/24 Source: Developed by Drs. Jasiel Santa, Chinyere Ro, Valdo Ayers and colleagues, with an educational anneliese from [employer]. Review of Systems Const Details: - Cardiovascular: Reports high blood pressure readings today - Musculoskeletal: Reports swelling in legs - General: Denies recent complaints or additional health concerns All systems reviewed & are unremarkable except as reviewed in HPI and above Physical exam (Primary Care) Vital Signs: Last Vital Signs Temp 97.9 F 11/18/24 09:33 Pulse 81 11/18/24 09:33 Resp 20 11/18/24 09:33 BP 174/54 H 11/18/24 09:33 Pulse Ox 95 11/18/24 09:33 Oxygen Delivery Method Room Air 11/18/24 09:33 BMI result Body Mass Index 43.3 Tobacco/Smoking Status: Tobacco use Status Tobacco use date assessed 05/20/24 11/18/24 09:20 Patient Tobacco Use Status Never used Tobacco 11/18/24 09:20 e-Cigarette/Vaping Use Never Used 11/18/24 09:20 Thrive Assessment: Date of Thrive Assessment Date Thrive assessed 05/20/24 11/18/24 09:20 Const Other: General: +Alert and oriented, Well nourished, No acute distress. Eye: Pupils are equal, round and reactive to light, Intact accommodation, Extraocular movements are intact, Normal conjunctiva, Vision unchanged. HENT: Normocephalic, Atraumatic, Tympanic membranes are clear, Normal hearing, Oral mucosa is moist, No pharyngeal erythema, Ear canals patent. Respiratory: Lungs CTA bilaterally, No wheeze, Respirations are non-labored. Cardiovascular: Regular rate, Regular rhythm, S1 auscultated, S2 auscultated, No murmur, Good pulses equal in all extremities, Normal peripheral perfusion, 1+ edema in both legs. Gastrointestinal: Soft, Non-tender, Non-distended, Normal bowel sounds, No organomegaly. Musculoskeletal: Normal range of motion, Normal strength, No tenderness, 1+ swelling in both legs, No deformity, Normal gait. Integumentary: Warm, Dry, [place], Intact. Neurologic: Alert, Oriented, Normal sensory, Normal motor function, No focal defects, Cranial Nerves II-XII are grossly intact, Normal deep tendon reflexes. Psychiatric: Cooperative, Appropriate mood & affect, Normal judgment. Coding Level of Care Code Est Pt Level 4 (68825) Complex EM visit Add On G2211 Diagnoses Primary hypertension I10 Hypertension type: primary hypertension Type 2 diabetes mellitus without complication, without long-term current use of insulin E11.9 Diabetes mellitus complication status: without complication Diabetes mellitus roasterman insulin use: without roasterman use Diabetes mellitus type: type 2 Other specified hypothyroidism E03.8 Hypothyroidism type: other Other hyperlipidemia E78.49 Hyperlipidemia type: other hyperlipidemia Assessment & Plan Assessment & Plan (1) HTN (hypertension): Comment: - Blood pressure was extremely high upon initial examination with repeat pressure at 140/80. - The patient is advised to acquire a home blood pressure cuff and monitor her blood pressure at home, recording values for review. She will follow up in three months for reevaluation. - Continue valsartan 320mg daily with possible addition of CCB at next visit Code(s): I10 - Essential (primary) hypertension Category: Medical Qualifiers: Hypertension type: primary hypertension Qualified Code(s): I10 - Essential (primary) hypertension (2) Diabetes: Comment: - Blood sugar control is currently within acceptable limits with an A1c of 6.2% from November previous year. - Continue Glipizide & Metformin 1000mg BID Code(s): E11.9 - Type 2 diabetes mellitus without complications Category: Medical Qualifiers: Diabetes mellitus complication status: without complication Diabetes mellitus residential insulin use: without roasterman use Diabetes mellitus type: type 2 Qualified Code(s): E11.9 - Type 2 diabetes mellitus without complications (3) Hypothyroid: Comment: - Levothyroxine seems adequate given prior TSH levels were well-controlled, with no current change in therapy Code(s): E03.9 - Hypothyroidism, unspecified Category: Medical Qualifiers: Hypothyroidism type: other Qualified Code(s): E03.8 - Other specified hypothyroidism (4) Hyperlipidemia: Comment: - LDL cholesterol was well managed with previous results showing a level of 86. No changes recommended pending further review. Code(s): E78.5 - Hyperlipidemia, unspecified Category: Medical Qualifiers: Hyperlipidemia type: other hyperlipidemia Qualified Code(s): E78.49 - Other hyperlipidemia Plan: Healthcare maintenance: - Encouraged dietary sodium reduction to manage blood pressure. - Suggested patient to continue monitoring blood glucose as per usual routine due to diabetes. Patient was informed and verbally consented to the use of an ambient scribe for clinic note documentation during this visit. Plan During the visit, we discussed the management of the patient's hypertension, especially her noted elevated blood pressure readings. I suggested reducing sodium intake, given her craving for salty foods like potato chips. We also reviewed her peripheral edema management strategy, including an observation period off furosemide to evaluate its necessity. We agreed on a follow-up plan in three months to assess hypertension control and make any necessary adjustments. Orders: Orders Comprehensive Met. Panel Today E03.8 - Other specified hypothyroidism, E11.9 - Type 2 diabetes mellitus without complications, E78.49 - Other hyperlipidemia, I10 - Essential (primary) hypertension Lipid Panel Today E03.8 - Other specified hypothyroidism, E11.9 - Type 2 diabetes mellitus without complications, E78.49 - Other hyperlipidemia, I10 - Essential (primary) hypertension Complete Blood Count Auto Diff Today E03.8 - Other specified hypothyroidism, E11.9 - Type 2 diabetes mellitus without complications, E78.49 - Other hyperlipidemia, I10 - Essential (primary) hypertension Hemoglobin A1c Today E03.8 - Other specified hypothyroidism, E11.9 - Type 2 diabetes mellitus without complications, E78.49 - Other hyperlipidemia, I10 - Essential (primary) hypertension TSH reflex Free T4 Today E03.8 - Other specified hypothyroidism, E11.9 - Type 2 diabetes mellitus without complications, E78.49 - Other hyperlipidemia, I10 - Essential (primary) hypertension Patient Instructions: - Buy a blood pressure cuff to monitor and record your blood pressure at home. - Reduce the intake of salty foods. - Hold off taking your water pill for 2-3 days; restart it if you notice increased swelling or breathing issues. - Come back to see me in three months for a blood pressure follow-up. - Get your blood work done as discussed.
[2024-11-18 09:33] VITALS: BP 174/54; PULSE 81; RESP 20; TEMP 36.6; O2SAT 95; BMI 43.3
--- OUTSIDE RECORDS SUMMARY | 2024-11-18 10:39 | XMS_ITS | Patient Health Record ---
Author Organization [facility] Address [address] [place] [address] Care Team Providers Care Stereoptic Projection Topographer Name Role Phone Jalen Simons Primary Care Provider [phone] Aisa Burris Unavailable [phone] Allergies No Known Allergies Results Component Value Reference Range Notes HEMOGLOBIN A1C (GLYCOHEMOGLO BIN) Reviewed date:09/30/2024 10:54:59 AM Interpretation: Performing Lab: Notes/Report: HEMOGLOBIN A1C % (HH) 6.2 Reason For Referral No Information Medications Medication SIG (Take, Route, Fr equency, Duration) Notes Start Date End Date Status Valsartan 320 MG Oral; Duration: 90 Active traMADol HCl 50 MG Oral; Duration: 5 Active metFORMIN HCl Active Levothyroxine Sodium Active Simvastatin 10mg Act everett Synthroid Active Furosemide 40 MG 1 tablet Orally Once a day Active Diovan Active Immunizations Vaccine Route Administration Date Status Comme nts Influenza Unknown 09/21/2015 Pending Influenza Unknown 01/09/2017 Administered Influenza Unknown 11/29/2017 Administered Influenza Unknown 11/11/2021 Administered Influenza Unknown 10/14/2022 Administered Influenza Unknown 11/15/2023 Administered Pneumococcal Unknown 12/08/2014 Administered COVID-19 Pfizer BioNTech Vaccine Unknown 03/20/2020 Administered 1st 04/13/20 2nd 03/20/20 Social History Tobacco Use: Social History Observation Description Date Details (start date - stop date) Never Smoker NA - NA Tobacco use other than smoking: Question Answer Notes Are you an other tobacco user? No Tobacco Control (Standard) Question Answer Notes Tobacco use: Nonsmoker Additional Findings: Tobacco non-user Current no nsmoker AUDIT-C (Standard) Question Answer Notes Did you have a drink containing alcohol in the p ast year? No Points 0 Interpretation Negative Problems Problem Type SNOMED Code ICD Code Onset Dates Problem Status W/U Status Risk Notes Problem Polyneuropathy due to type 2 diabetes mellitus (035767989) Type 2 diabetes mellitus with diabetic polyneuropathy (E11.42) Active confirmed Vital Signs Blood pressure diastolic 65 mm Hg 09/30/2024 Height 5 ft 3 in in 09/30/2024 Blood pressure systolic 126 mm Hg 09/30/2024 Weight 240 lbs 09/30/2024 BMI 42.51 kg/m2 09/30/2024 Procedures Procedure Date Ordered Date Performed Result Body Sit e 08833-TNOSVTC NAIL, 6 OR MORE 01/17/2024 N/A 44166-ERKX SKIN LESIONS, 2 TO 4 01/17/2024 N/A 21791-MGKTWEW NAIL, 6 OR MORE 05/29/2024 N/A 59950-DDGF SKIN LESIONS, 2 TO 4 05/29/2024 N/A 13819-PZGZAEO NAIL, 6 OR MORE 09/30/2024 N/A 22836-CPXP SKIN LESIONS, 2 TO 4 09/30/2024 N/A Encounters Encounter [facility] Date [facility] [address] 01/17/2024 Asia Burris Type 2 diabetes mellitus with diabetic polyneuropathy E11.42 and Tinea unguium B35.[address] [address] 05/29/2024 Asia Burris Type 2 diabetes mellitus with diabetic polyneuropathy E11.42 and Tinea unguium B35.[address] [address] 09/30/2024 Asia Burris Type 2 diabetes mellitus with diabetic polyneuropathy E11.42 and Tinea unguium B35.1 Assessments Encounter Date Diagnosis (ICD Code) Assessment Notes Treatment Notes Treatment Clinical Notes Section Notes 01/17/2024 Type 2 diabetes mellitus with diabetic polyneuropathy (ICD-10 - E11.42) 01/17/2024 Tinea unguium (ICD-10 - B35.1) 05/29/2024 Type 2 diabetes mellitus with diabetic polyneuropathy (ICD-10 - E11.42) 05/29/2024 Tinea unguium (ICD-10 - B35.1) 09/30/2024 Type 2 diabetes mellitus with diabetic polyneuropathy (ICD-10 - E11.42) 09/30/2024 Tinea unguium (ICD-10 - B35.1) Plan Of Treatment Pending Test Test Name Order Date 26570-WGJRMBK NAIL, 6 OR MORE 07/27/2011 98140-CWFPOCK NAIL, 6 OR MORE 10/27/2011 53514-AFHONNY NAIL, 6 OR MORE 01/26/2012 28043-YMQQVMY NAIL, 6 OR MORE 05/24/2012 67162-QCTRTNB NAIL, 6 OR MORE 09/24/2012 96809-FUGQADR NAIL, 6 OR MORE 01/14/2013 93083-QNAEREC NAIL, 6 OR MORE 06/10/2013 25890-BEPJZQR NAIL, 6 OR MORE 10/21/2013 39377-PVYQBLW NAIL, 6 OR MORE 01/20/2014 91005-PPPIFQK NAIL, 6 OR MORE 05/21/2014 87923-OFISNKJ NAIL, 6 OR MORE 08/20/2014 30034-BMWLOHE NAIL, 6 OR MORE 12/17/2014 73432-NQGVFQV NAIL, 6 OR MORE 05/25/2015 28593-UBCCTFP NAIL, 6 OR MORE 09/21/2015 77406-TWUZOWN NAIL, 6 OR MORE 01/21/2016 86612-WUDJGMD NAIL, 6 OR MORE 06/06/2016 39509-RZIKDWX NAIL, 6 OR MORE 10/10/2016 79133-UPELXMZ NAIL, 6 OR MORE 01/23/2017 47511-UMMRYML NAIL, 6 OR MORE 06/14/2017 54314-SSWQXMA NAIL, 6 OR MORE 10/18/2017 93515-GJFAUFJ NAIL, 6 OR MORE 01/17/2018 31323-BXAANUY NAIL, 6 OR MORE 01/17/2024 19188-UFBTFYA NAIL, 6 OR MORE 05/29/2024 43577-DIHORHE NAIL, 6 OR MORE 09/30/2024 47854-Tnqdhnvf Plate 10/27/2011 39632-Jelcphkt Plate 01/26/2012 03333-PXWP SKIN LESIONS, OVER 4 01/26/20 12 24002-SJTG SKIN LESIONS, OVER 4 05/25/19 13 03974-FRWX SKIN LESIONS, OVER 4 10/27/19 12 87248-KRTS SKIN LESIONS, OVER 4 07/27/19 12 64894-FPPO SKIN LESIONS, OVER 4 10/22/19 14 92436-RHRD SKIN LESIONS, OVER 4 06/11/19 14 19898-GBXJ SKIN LESIONS, OVER 4 01/15/20 13 23940-BSPL SKIN LESIONS, OVER 4 09/25/19 13 52847-UEEL SKIN LESIONS, OVER 4 06/07/19 17 67891-VTAN SKIN LESIONS, OVER 4 10/11/19 17 49437-AGHV SKIN LESIONS, OVER 4 01/21/20 16 47910-YPWE SKIN LESIONS, OVER 4 09/21/19 16 61247-QWVU SKIN LESIONS, OVER 4 05/25/19 16 09380-SMXI SKIN LESIONS, OVER 4 12/18/19 15 53116-FQVQ SKIN LESIONS, OVER 4 08/21/19 15 53325-RMAX SKIN LESIONS, OVER 4 05/22/19 15 76418-SXBE SKIN LESIONS, OVER 4 01/21/20 14 31693-THBA SKIN LESIONS, OVER 4 05/17/19 19 86687-BFRR SKIN LESIONS, OVER 4 08/21/19 19 80274-SRQA SKIN LESIONS, OVER 4 01/24/20 19 15070-AVWA SKIN LESIONS, OVER 4 06/05/19 20 84737-VNHG SKIN LESIONS, OVER 4 09/30/19 20 58086-MUPJ SKIN LESIONS, OVER 4 01/06/20 20 50262-ILAG SKIN LESIONS, OVER 4 06/30/19 21 11772-RKNX SKIN LESIONS, OVER 4 10/15/19 21 81092-WTLX SKIN LESIONS, OVER 4 05/28/19 22 68886-GTMS SKIN LESIONS, OVER 4 01/18/20 18 06304-VYDT SKIN LESIONS, OVER 4 10/19/19 18 96039-AYLU SKIN LESIONS, OVER 4 06/15/19 18 49055-XEKD SKIN LESIONS, OVER 4 01/24/20 17 26876-ZCPY SKIN LESIONS, 2 TO 4 10/01/19 25 51498-EVNT SKIN LESIONS, 2 TO 4 05/30/19 25 42337-MUXO SKIN LESIONS, 2 TO 4 01/17/20 24 Next Appt Details Provider Name:Asia Giordano maryana, 01/30/2025 09:15:00 AM, [address] [facility], [place], [address], Insurance Providers Payer Name Payer Address Payer Phone Subscriber Number Group Number Insured Name Patient Relationship to Insured Coverage Start Date Coverage End Date Medicare National [employer] [address] [place] [address] [id number] Amanda Hughes Self - patient is the insured [facility] [address] [place] [address] [phone] [id number] Amanda Hughes Self - patient is the insured Medical (General) History Medical History History ICD Code hypertension type II diabetes Surgical History Surgery Date(Month/Year) laser surgery left knee replacement 04/2020 right knee replacement 05/31/2021
--- OUTSIDE RECORDS SUMMARY | 2024-11-18 10:39 | XMS_ITS | Patient Health Record ---
Author Organization [facility] Address [address] [place] [address] Care Team Providers Care Place Change Roof Bolter Name Role Phone [place] (RETIRED) Fredrick MOHR Primary Care Provide Keaton Orosco Jr Unavailable [phone] Allergies Allergen (clinical drug ingredient) Drug/Non Drug Allergy documented on EMR Reaction Allergy Type Onset Date Status sulfamethoxazole / trimethoprim Bactrim rash Drug Allergy Active Reason For Referral No Information Medications Medication SIG (Take, Route, Frequency, Duration) Notes Start Date End Date Status Simvastatin 10 MG 1 tablet in the even ing Orally Once a day Active Furosemide 40 MG 1 tablet Orally Once a day Active Valsartan 320 MG 1 tablet Orally Once a day Active Levothyroxine Sodium 50 MCG 1 tablet on an empty stomach in the morning Orally Once a day Active glipiZIDE XL 5 MG 1 tablet Orally Once a day Active Colyte with Flavor Packs 240 GM As directed Orally Over the specified time. for 1 day(s) Active Fish Oil Active Aspir-81 Active metFORMIN HCl 500 MG 1 tablet with meals Orally Once a day Active Social History Tobacco Use: Social History Observation Description Date Details (start date - stop date) Never Smoker NA - NA Tobacco Use/Smoking Question Answer Notes Patient is a nonsmoker Alcohol Screen Question Answer Notes Did you have a drink containing alcohol in the p ast year? No Points 0 Interpretation Negative Problems Problem Type SNOMED Code ICD Code Onset Dates Problem Status W/U Status Risk Notes Problem 966830058 Colon cancer screening (Z12.11) Active confirmed Problem 200179288 senior care (current) use of aspirin (Z79.82) Active confirmed Problem 746751530 Long-term curren t use of high risk medication other than anticoagulant (Z79.899) Active confirmed Plan Of Treatment Future Test Test Name Order Date COLONOSCOPY 08/11/2016 Insurance Providers Payer Name Payer Address Payer Phone Subscriber Number Group Number Insured Name Patient Relationship to Insured Coverage Start Date Coverage End Date MEDICARE OF [place] [address] [place] [id number] SHAD ROBERTS Self - patient is the insured [employer] CLAIMS [address] [place] [address] [id number] SHAD ROBERTS Self - patient is the insured Medical (General) History Medical History History ICD Code diabetes mellitus hypertension hypothyroidism elevated cholesterol Surgical History Surgery Date(Month/Year) hysterectomy tonsillectomy
== END 2024-11-18 09:53 | disposition home or self-care (01) ==
LOC: HO.HMCHD 09:26
PROVIDERS: PCP Student in an Organized Health Care Education/Training Program; Visit Provider Student in an Organized Health Care Education/Training Program
DX: I10 Essential (primary) hypertension (principal); E11.9 Type 2 diabetes mellitus without complications; E03.8 Other specified hypothyroidism; E78.49 Other hyperlipidemia

== ENCOUNTER → 2024-11-18 09:25 | Outpatient (BNVA) | payer MEDICARE, SELFPAY | PROVIDERS: PCP Internal Medicine; Visit Provider Student in an Organized Health Care Education/Training Program | DX: I10 Essential (primary) hypertension (principal); E11.9 Type 2 diabetes mellitus without complications; E03.8 Other specified hypothyroidism; E78.49 Other hyperlipidemia; R60.0 Localized edema; Z79.84 Long term (current) use of oral hypoglycemic drugs; Z79.899 Other long term (current) drug therapy | CPT/HCPCS: 99212 ==

== ENCOUNTER 2024-11-18 11:40 | Outpatient (REF) | payer MEDICARE, SELFPAY ==
[2024-11-18 13:28] LABS: MANUAL DIFF FLAG NO
[2024-11-18 13:35] LABS: Hematocrit 37.7 % (37.0-47.0); Hemoglobin 12.6 g/dl (12.0-16.0); Imm Gran Abs Auto 0.04 X10*3/uL (0.00-0.03); Imm Gran Pct Auto 0.4 % (0.0-0.4); Lymphocytes Absolute Auto 3.1 X10*3/uL (1.2-4.9); Mean Corpuscular HGB Conc 33.4 g/dl (31.0-35.0); Mean Corpuscular Hemoglobin 29.0 pg (27.0-33.0); Mean Corpuscular Volume 86.9 fL (80.0-98.0); NRBC Abs Auto 0.000 X10*3/uL (0.0-0.012); NRBC Pct Auto 0.0 /100WBC (0.0-0.2); Platelet Count 278 X10*3/uL (160-400); Red Blood Count 4.34 X10*6/uL (4.20-5.50); White Blood Count 10.9 X10*3/uL (4.8-10.8)
[2024-11-18 14:06] LABS: Hemoglobin A1C 227.3193 umol/L; Total Hemoglobin (HGBA1C) 4770.2176 umol/L
[2024-11-18 14:19] LABS: Alanine Aminotransferase 16 U/L (0-31); Albumin Level 4.3 g/dL (3.5-5.0); Alkaline Phosphatase 42 U/L (39-117); Anion Gap 15 (12-20); Aspartate Amino Transferase 21 U/L (5-31); Blood Urea Nitrogen 17 mg/dL (9-16); Calcium 9.0 mg/dL (8.4-10.2); Carbon Dioxide 30 mmol/L (22-29); Chloride 104 mmol/L (96-108); Cholesterol 151 mg/dL (<200); Estimated Glomerular Filt Rate > 60; HDL Cholesterol 52 mg/dL (>40); Potassium 3.9 mmol/L (3.3-5.1); Sodium 145 mmol/L (135-145); Total Protein 6.9 g/dL (6.5-8.0); Triglycerides 96 mg/dL (<150)
== END 2024-11-18 11:41 | disposition home or self-care (01) ==
LOC: HO.10HDL 11:40
PROVIDERS: Visit Provider Student in an Organized Health Care Education/Training Program
DX: I10 Essential (primary) hypertension (principal); E03.9 Hypothyroidism, unspecified; E11.9 Type 2 diabetes mellitus without complications; E78.49 Other hyperlipidemia
CPT/HCPCS: 36415; 80053; 80061; 83036; 84443; 85025

== ENCOUNTER 2024-11-19 08:16 | Emergency (ER) | payer MEDICARE, SELFPAY ==
--- NOTE | 2024-11-19 | ECG_ITS ---
Test Reason : N/O HIGH BP Blood Pressure : */* mmHG Vent. Rate : 91 BPM Atrial Rate : 91 BPM P-R Int : 164 ms QRS Dur : 86 ms QT Int : 370 ms P-R-T Axes : 52 72 65 degrees QTcB Int : 455 ms Normal sinus rhythm Nonspecific ST abnormality Abnormal ECG When compared with ECG of 29-Nov-2019 13:23, No significant change was found Referred By: Generic ED Physician Electronically Signed By: DEANDRA BUSTAMANTE MD
--- NOTE | ~2024-11-19 | CT_ITS ---
EXAMINATION: CT CHEST ANGIOGRAPHY WITH IV CONTRAST INDICATION: asymmetric BPs, fatigue COMPARISON: There are no prior studies available for comparison. TECHNIQUE: Helical CT scan of the chest was performed following administration of intravenous contrast (65 mL Omnipaque 350). The contrast bolus was timed to optimally opacify the pulmonary arteries. Thin sections were obtained through the thoracic aorta. Coronal and sagittal reformatted images were generated. 3D/MIP reconstructed images are also obtained and reviewed. This CT exam was performed with one or more of the following dose reduction techniques: automated exposure control, adjustment of the mA and/or kV according to patient size, use of iterative reconstruction technique. DLP: 338 mGy-cm CHEST: THYROID: The thyroid gland is unremarkable. PULMONARY ARTERIES: No intraluminal filling defects are identified within the pulmonary arteries to suggest pulmonary emboli. There is mild dilatation of the main pulmonary artery, however suggestive of pulmonary arterial hypertension. LUNGS: There is mild mosaic attenuation in the lungs compatible with small airways disease. There are no focal airspace opacities. MEDIASTINUM: There is no mediastinal lymphadenopathy. MIREYA: There is no hilar lymphadenopathy. CARDIOVASCULATURE: The heart is normal in size. There is no pericardial effusion. The thoracic aorta is normal in caliber. No intimal flap is seen. DEGREE OF CORONARY CALCIFICATION: not evaluable, due to dense contrast in the coronary arteries PLEURA: There is no pleural effusion. No pneumothorax. MAIN AIRWAYS: The mainstem bronchi and proximal branches are patent. AXILLA: There is no axillary lymphadenopathy. UPPER ABDOMEN: The visualized portions of the liver, spleen, and adrenals are unremarkable. There is a small hiatal hernia. BONES AND SOFT TISSUES: Unremarkable. CT/CT angio chest aorta IMPRESSION: 1. No intimal flap is seen within the thoracic aorta to suggest dissection. 2. No evidence of pulmonary emboli. 3. Mosaic attenuation of the lungs suggestive of small airways disease. 4. Findings compatible with pulmonary arterial hypertension. 5. Small hiatal hernia. Electronically signed by: Jasiel Coronado MD 11/19/2024 01:48 PM EDT
--- NOTE | ~2024-11-19 | XR_ITS ---
EXAMINATION: XR CHEST CLINICAL INFORMATION: new onset high BP COMPARISON: 11/29/2019. TECHNIQUE: 2 views of the chest were obtained. FINDINGS: The cardiac, hilar, and mediastinal contours are normal. Aortic mural calcifications. The lungs are clear bilaterally. There is no pneumothorax or pleural effusion. There is no focal osseous or soft tissue abnormality. There are degenerative changes throughout the spine and involving both shoulder joints. There are cholecystectomy clips present. XR/XR chest 2V IMPRESSION: No active pulmonary disease. Electronically signed by: Awais Pablo MD 11/19/2024 09:06 AM EDT
[2024-11-19 08:31] VITALS: BP 224/86; PULSE 99; RESP 18; TEMP 36.4; O2SAT 93; BMI 40.3
[2024-11-19 08:55] LABS: MANUAL DIFF FLAG NO
[2024-11-19 08:56] LABS: Hematocrit 37.0 % (37.0-47.0); Hemoglobin 12.6 g/dl (12.0-16.0); Imm Gran Abs Auto 0.04 X10*3/uL (0.00-0.03); Imm Gran Pct Auto 0.4 % (0.0-0.4); Lymphocytes Absolute Auto 2.3 X10*3/uL (1.2-4.9); Mean Corpuscular HGB Conc 34.1 g/dl (31.0-35.0); Mean Corpuscular Hemoglobin 29.4 pg (27.0-33.0); Mean Corpuscular Volume 86.4 fL (80.0-98.0); NRBC Abs Auto 0.000 X10*3/uL (0.0-0.012); NRBC Pct Auto 0.0 /100WBC (0.0-0.2); Platelet Count 259 X10*3/uL (160-400); Red Blood Count 4.28 X10*6/uL (4.20-5.50); White Blood Count 9.5 X10*3/uL (4.8-10.8)
[2024-11-19 09:14] LABS: Alanine Aminotransferase 15 U/L (0-31); Albumin Level 4.3 g/dL (3.5-5.0); Alkaline Phosphatase 41 U/L (39-117); Anion Gap 13 (12-20); Aspartate Amino Transferase 23 U/L (5-31); Blood Urea Nitrogen 14 mg/dL (9-16); Calcium 10.0 mg/dL (8.4-10.2); Carbon Dioxide 28 mmol/L (22-29); Chloride 106 mmol/L (96-108); Creatinine Clr Calc Pharmacy 75.8; Estimated Glomerular Filt Rate > 60; Magnesium 2.0 mg/dL (1.6-2.6); Potassium 3.7 mmol/L (3.3-5.1); Sodium 143 mmol/L (135-145); Total Protein 6.9 g/dL (6.5-8.0)
[2024-11-19 09:16] LABS: Troponin-I High Sensitivity 4.8 ng/L (<3.5-17.0)
--- NOTE | 2024-11-19 11:17 | ED.GENADULT ---
HPI - General Adult General Chief complaint: General Medical Stated complaint: High BP Time Seen by Provider: 11/19/24 10:19 Source: patient, family and old records reviewed Mode of arrival: ambulatory Limitations: no limitations History of Present Illness ED Provider: BROOKS HO narrative: 84 yo female with known PMH of HTN on valsartan 320mg daily (compliant), DM, hypothyroidism, HLD here with c/o going to PCP for the first time in 6 months (her old PCP retired) they noted her BP was elevated her PCP told her to recheck it this morning. Her daughter in law who is a RN checked left arm 220/100 and R arm 180/70. She has no headaches, chest pain, dyspnea. She stopped her lasix yesterday via PCP given improved in leg edema. No vitamins, no OTC medications. She is not on any cold medications. Despite being asymptomatic patient's daughter in law sent her who is RN brought the patient in with a note reporting she needs an ECHO and carotid US. Her spouse is perseverating on her blood pressure and that she needs these tests. I did discuss an ECHO and carotid US are outpatient work up and since she has no signs of end organ damage I am going to Related Data Home Medications ?Medication ?Instructions ?Recorded ?Confirmed glipizide 5 mg tablet, extended 5 mg PO DAILY 05/20/24 11/18/24 release 24 hr levothyroxine 100 mcg tablet 100 mcg PO DAILY 05/20/24 11/18/24 metformin 500 mg tablet 1,000 mg PO BID 05/20/24 11/18/24 simvastatin 10 mg tablet 10 mg PO BEDTIME 05/20/24 11/18/24 valsartan 320 mg tablet 320 mg PO DAILY 05/20/24 11/18/24 furosemide 40 mg tablet 40 mg PO DAILY 11/18/24 11/18/24 multivitamin 1 tab PO DAILY 11/18/24 11/18/24 Previous Rx's ?Medication ?Instructions ?Recorded metoprolol succinate 25 mg 25 mg PO DAILY #30 tabs 11/19/24 tablet,extended release 24 hr (Toprol XL) Allergies Allergy/AdvReac Type Severity Reaction Status Date / Time sulfamethoxazole (From Allergy Intermediate FULL BODY Verified 11/19/24 08:32 BACTRIM) RASH trimethoprim (From BACTRIM) Allergy Intermediate FULL BODY Verified 11/19/24 08:32 RASH Sulfa (Sulfonamide Allergy Unknown Unknown Verified 11/19/24 08:32 Antibiotics) Review of Systems Review of Systems: Yes all other systems are reviewed and are negative [facility] Past Medical History Medical History (Updated 11/19/24 @ 13:46 by Christina Chino DO) Hyperlipidemia Diabetes High cholesterol Hypothyroid HTN (hypertension) Diabetes 1.5, managed as type 2 Surgical History (Updated 06/11/24 @ 09:10 by Gill West) History of colonoscopy (~11/09/16) Family History Family History (Updated 05/20/24 @ 11:21 by Violetta Ta MA) Mother No problems noted. Father No problems noted. Social History Social History Housing: House Patient Tobacco Use Status: Never used Tobacco e-Cigarette/Vaping Use: Never Used Advance Directives: Yes Advance Directives Information Provided: Yes Advance Directives on File: No service: No Current occupational status: retired Cognitive needs: No Hearing needs: Yes Vision needs: Yes (reading glasses) Physical Exam ED Vital Signs: Vital Signs - 24 hr 11/19/24 08:31 11/19/24 11:28 11/19/24 14:21 Temperature 97.5 F 98.3 F Pulse Rate 99 80 80 Respiratory Rate 18 16 Blood Pressure 224/86 H 194/83 H 194/83 H Pulse Oximetry 93 97 Oxygen Delivery Method Room Air Room Air BMI result Body Mass Index 40.3 Medications Administered Discontinued Medications Generic Name Dose Route Start Last Admin Trade Name Freq PRN Reason Stop Dose Admin Iohexol 100 ml 11/19/24 13:37 11/19/24 13:37 Iohexol 350 Mg/Ml 100 Ml Infus..Btl IV 11/19/24 13:38 70 ml ONCE ONE Administration Metoprolol Tartrate 25 mg 11/19/24 11:04 11/19/24 11:28 Metoprolol Tartrate 25 Mg Tablet PO 11/19/24 11:05 25 mg ONCE ONE Administration Protocol Medical Decision Making Medical Decision Making MDM Narrative: 84 yo female with known PMH of HTN on valsartan 320mg daily (compliant), DM, hypothyroidism, HLD here with c/o assymetric HTN but has not checked her BP in months. She has no risk factors and no CP/neuro symptoms. We did repeat multiple BPs and her HR has been in 80s and 90s with persistent HTN - I am going to order metoprolol and monitor. I do not think she needs ECHO or carotids emergently but I am going to obtain imaging of her aorta despite her lack of symptoms. Differential Diagnosis Differential Diagnoses: The differential diagnosis associated with the presentation includes uncontrolled HTN, hyperthyroidism, KRIS, aorta pathology Admission/Observation Consideration of admission/observation: Escalation of care including admission/observation considered BP improved no symptoms will start on toprol XL 25mg daily and have her follow up with PCP Lab Data MDM Lab Attestation statement: I reviewed the patient's lab results. 11/19/24 08:51 11/19/24 08:51 Labs: Lab Results 11/19/24 Range/Units 08:51 WBC 9.5 (4.8-10.8) X10*3/uL RBC 4.28 (4.20-5.50) X10*6/uL Hgb 12.6 (12.0-16.0) g/dl Hct 37.0 (37.0-47.0) % MCV 86.4 (80.0-98.0) fL MCH 29.4 (27.0-33.0) pg MCHC 34.1 (31.0-35.0) g/dl RDW 13.1 (11.0-16.0) % Plt Count 259 (160-400) X10*3/uL MPV 10.2 (9.4-12.3) fL Immature Gran % (Auto) 0.4 (0.0-0.4) % Neut % (Auto) 62.9 (45-73) % Lymph % (Auto) 24.5 (20-40) % Blanco % (Auto) 5.9 (2-11) % Eos % (Auto) 5.5 H (0-4) % Baso % (Auto) 0.8 (0-2) % Lymph # (Auto) 2.3 (1.2-4.9) X10*3/uL Blanco # (Auto) 0.6 (0.1-1.2) X10*3/uL Eos # (Auto) 0.5 H (0.0-0.4) X10*3/uL Baso # (Auto) 0.1 (0.0-0.2) X10*3/uL Abs Immat Gran (auto) 0.04 H (0.00-0.03) X10*3/uL Absolute Neuts (auto) 6.0 (2.0-8.3) x10*3/uL Absolute Nucleated RBC 0.000 (0.0-0.012) X10*3/uL Nucleated RBC % (auto) 0.0 (0.0-0.2) /100WBC Sodium 143 (135-145) mmol/L Potassium 3.7 (3.3-5.1) mmol/L Chloride 106 (96-108) mmol/L Carbon Dioxide 28 (22-29) mmol/L Anion Gap 13 (12-20) BUN 14 (9-16) mg/dL Creatinine 0.73 (0.5-1.4) mg/dL Estim Creat Clear Calc 75.8 Estimated GFR > 60 Random Glucose 158 H (60-115) mg/dL Calcium 10.0 D (8.4-10.2) mg/dL Magnesium 2.0 (1.6-2.6) mg/dL Total Bilirubin 1.0 (0.0-1.0) mg/dL AST 23 (5-31) U/L ALT 15 (0-31) U/L Alkaline Phosphatase 41 (39-117) U/L Troponin I High Sens 4.8 (<3.5-17.0) ng/L Total Protein 6.9 (6.5-8.0) g/dL Albumin 4.3 (3.5-5.0) g/dL TSH 1.73 (0.32-4.0) uIU/mL Independent Interpretation I performed an independent interpretation of an: EKG and CT Scan (normal ) Interpretation: Rate: 91 Rhythm: NSR [place]: normal Normal P waves. Normal GALLITO. Normal QRS complex. ST T wave : flat t waves aVL, no ESTER qTC: 455 prior studies: no acute ischemia The study has been interpreted contemporaneously by me. . Radiology Impression Discussion of test interpretation with radiology: I have reviewed the radiologist's reading. Independent Historian Clinical information obtained from an independent historian. History obtained from or confirmed by: Spouse External Record Review External record reviewed: Outpatient record Prescription Management I considered prescription management with: Other Discharge Plan Discharge Clinical Impression: HTN (hypertension) Qualifiers: Hypertension type: primary hypertension Qualified Code(s): I10 - Essential (primary) hypertension Patient Disposition: Home, Self-Care Instructions: Metoprolol (By mouth), Chronic Hypertension (ED) Additional Instructions: EKG and labs are reassuring, normal kidney function, your thyroid was normal as well continue your medications start new medication tomorrow - hold if your heart rate is less than 60 and if your blood pressure is less than 100 check your blood pressure daily before your medications and one hour after. follow up with your primary care doctor return for any worsening symptoms or concerns your CT scan of chest - your aorta was normal incidental findings on todays exam : can follow up with PCP CT/CT angio chest aorta IMPRESSION: 1. No intimal flap is seen within the thoracic aorta to suggest dissection. 2. No evidence of pulmonary emboli. 3. Mosaic attenuation of the lungs suggestive of small airways disease. 4. Findings compatible with pulmonary arterial hypertension. 5. Small hiatal hernia. Prescriptions: New metoprolol succinate [Toprol XL] 25 mg tablet extended release 24 hr 25 mg PO DAILY Qty: 30 2RF No Action multivitamin Tablet 1 tab PO DAILY furosemide 40 mg tablet 40 mg PO DAILY levothyroxine 100 mcg tablet 100 mcg PO DAILY simvastatin 10 mg tablet 10 mg PO BEDTIME glipizide 5 mg tablet extended release 24hr 5 mg PO DAILY valsartan 320 mg tablet 320 mg PO DAILY metformin 500 mg tablet 1,000 mg PO BID Interventions: ED Discharge Assessment Last Done: 11/19/24 14:21 Discharge Date/Time: 11/19/24 14:22 Print Language: German
[2024-11-19 11:28] VITALS: BP 194/83; PULSE 80
--- OUTSIDE RECORDS SUMMARY | 2024-11-19 11:46 | XMS_ITS | Patient Health Record ---
Author Organization [facility] Address [address] [place] [address] Care Team Providers Care Agile Business Analyst Name Role Phone Paradise (RETIRED) Fredrick MOHR Primary Care Provide Keaton Orosco Jr Unavailable Allergies Allergen (clinical drug ingredient) Drug/Non Drug [...] Problem Status W/U Status Risk Notes Problem 410711091 Colon cancer screening (Z12.11) Active confirmed Problem 218837872 retirement (current) use of aspirin (Z79.82) Active confirmed Problem 150402484 Long-term curren t use of high risk medication other than anticoagulant (Z79.899) Active confirmed Plan Of Treatment Future Test Test Name Order Date COLONOSCOPY 08/11/2016 Insurance Providers Payer Name Payer Address Payer Phone Subscriber Number Group Number Insured Name Patient Relationship to Insured Coverage Start Date Coverage End Date MEDICARE OF [place] [address] [place] S[place] [id number] SHAD ROBERTS Self - patient is the insured [employer] CLAIMS [address] [place] [address] [id number] SHAD ROBERTS Self - patient is the insured Medical (General) History Medical History History ICD Code diabetes mellitus hypertension hypothyroidism elevated cholesterol Surgical History Surgery Date(Month/Year) hysterectomy tonsillectomy
--- OUTSIDE RECORDS SUMMARY | 2024-11-19 11:46 | XMS_ITS | Patient Health Record ---
Author Organization [facility] Address [address] [place] [address] Care Team Providers Care Bus Trolley And Taxi Instructor Name Role Phone Jalen Simons Primary Care Provider Asia Burris Unavailable [phone] Allergies No Known Allergies Results Component Value [...] Polyneuropathy due to type 2 diabetes mellitus (331735106) Type 2 diabetes mellitus with diabetic polyneuropathy (E11.42) Active confirmed Vital Signs Blood pressure diastolic 65 mm Hg 09/30/2024 Height 5 ft 3 in in 09/30/2024 Blood pressure systolic 126 mm Hg 09/30/2024 Weight 240 lbs 09/30/2024 BMI 42.51 kg/m2 09/30/2024 Procedures Procedure Date Ordered Date Performed Result Body Sit e 07837-IHAWIOU NAIL, 6 OR MORE 01/17/2024 N/A 54139-HCFE SKIN LESIONS, 2 TO 4 01/17/2024 N/A 30220-CZQGXKW NAIL, 6 OR MORE 05/29/2024 N/A 47778-RIZN SKIN LESIONS, 2 TO 4 05/29/2024 N/A 85432-JUEAGNT NAIL, 6 OR MORE 09/30/2024 N/A 83371-UENR SKIN LESIONS, 2 TO 4 09/30/2024 N/A Encounters Encounter Location Date [facility] [address] 01/17/2024 Asia Burris Type 2 diabetes mellitus with diabetic polyneuropathy E11.42 and Tinea unguium B35.[address] [address] 05/29/2024 Asia Burris Type 2 diabetes mellitus with diabetic polyneuropathy E11.42 and Tinea unguium B35.[address] [address] 09/30/2024 Asia Burris Type 2 diabetes mellitus [...] Treatment Pending Test Test Name Order Date 06505-BKFZUOI NAIL, 6 OR MORE 07/27/2011 27887-OFJUURI NAIL, 6 OR MORE 10/27/2011 08017-BJVHZXW NAIL, 6 OR MORE 01/26/2012 01388-XRYGSNP NAIL, 6 OR MORE 05/24/2012 49629-CELQJQS NAIL, 6 OR MORE 09/24/2012 71596-ADNDVAR NAIL, 6 OR MORE 01/14/2013 93946-GGNQAHA NAIL, 6 OR MORE 06/10/2013 00851-CNKMTCE NAIL, 6 OR MORE 10/21/2013 75151-YLEHJJV NAIL, 6 OR MORE 01/20/2014 73309-RIJIVVR NAIL, 6 OR MORE 05/21/2014 04682-QGBYJGK NAIL, 6 OR MORE 08/20/2014 05099-WUMXHVU NAIL, 6 OR MORE 12/17/2014 56729-XXGQOED NAIL, 6 OR MORE 05/25/2015 85799-HWLPOAE NAIL, 6 OR MORE 09/21/2015 24447-ZJFCXUT NAIL, 6 OR MORE 01/21/2016 33792-NNIFIOO NAIL, 6 OR MORE 06/06/2016 43736-YMOSYYF NAIL, 6 OR MORE 10/10/2016 31267-VOQDQTG NAIL, 6 OR MORE 01/23/2017 01301-CUSHNMQ NAIL, 6 OR MORE 06/14/2017 28979-YHTDHQZ NAIL, 6 OR MORE 10/18/2017 33382-TXHZYZX NAIL, 6 OR MORE 01/17/2018 40690-IVFFSPH NAIL, 6 OR MORE 01/17/2024 50683-PGTIIOD NAIL, 6 OR MORE 05/29/2024 60911-SKIVREZ NAIL, 6 OR MORE 09/30/2024 36232-Vddrkfgs Plate 10/27/2011 75682-Edljltwm Plate 01/26/2012 78288-HVQX SKIN LESIONS, OVER 4 01/26/20 12 04279-OCDL SKIN LESIONS, OVER 4 05/25/19 13 78413-DKNW SKIN LESIONS, OVER 4 10/27/19 12 02052-RQYJ SKIN LESIONS, OVER 4 07/27/19 12 84041-LABI SKIN LESIONS, OVER 4 10/22/19 14 25259-FZKI SKIN LESIONS, OVER 4 06/11/19 14 06481-MHUK SKIN LESIONS, OVER 4 01/15/20 13 87179-XVHL SKIN LESIONS, OVER 4 09/25/19 13 43751-VHYV SKIN LESIONS, OVER 4 06/07/19 17 64660-MRFQ SKIN LESIONS, OVER 4 10/11/19 17 80110-KHXE SKIN LESIONS, OVER 4 01/21/20 16 70303-BHMS SKIN LESIONS, OVER 4 09/21/19 16 08602-POEV SKIN LESIONS, OVER 4 05/25/19 16 19771-GOZC SKIN LESIONS, OVER 4 12/18/19 15 26601-HLWZ SKIN LESIONS, OVER 4 08/21/19 15 07390-SJXO SKIN LESIONS, OVER 4 05/22/19 15 23225-IWGL SKIN LESIONS, OVER 4 01/21/20 14 42128-UFEC SKIN LESIONS, OVER 4 05/17/19 19 47808-DNTP SKIN LESIONS, OVER 4 08/21/19 19 39089-WNTU SKIN LESIONS, OVER 4 01/24/20 19 62834-GNGU SKIN LESIONS, OVER 4 06/05/19 20 37856-SZGS SKIN LESIONS, OVER 4 09/30/19 20 42801-TIWK SKIN LESIONS, OVER 4 01/06/20 20 33329-WOXN SKIN LESIONS, OVER 4 06/30/19 21 81109-QGQK SKIN LESIONS, OVER 4 10/15/19 21 63825-KDHC SKIN LESIONS, OVER 4 05/28/19 22 16395-ALJR SKIN LESIONS, OVER 4 01/18/20 18 73584-URPP SKIN LESIONS, OVER 4 10/19/19 18 05953-VXWB SKIN LESIONS, OVER 4 06/15/19 18 49920-ZXJQ SKIN LESIONS, OVER 4 01/24/20 17 85921-QAVJ SKIN LESIONS, 2 TO 4 10/01/19 25 43529-HQJX SKIN LESIONS, 2 TO 4 05/30/19 25 61837-MDTX SKIN LESIONS, 2 TO 4 01/17/20 24 Next Appt Details Provider Name:Asia Giordano maryana, 01/30/2025 09:15:00 AM, [address] [facility], [place], [address], Insurance Providers Payer Name Payer Address Payer Phone Subscriber Number Group Number Insured Name Patient Relationship to Insured Coverage Start Date Coverage End Date Medicare National [employer] [address] [place] [address] [id number] Amanda Hughes Self - patient is the insured [facility] [address] [place] [address] [id number] Amanda Hughes Self - patient is the insured Medical (General) History Medical History History ICD Code hypertension type II diabetes Surgical History Surgery Date(Month/Year) laser surgery left knee replacement 04/2020 right knee replacement 05/31/2021
[2024-11-19] MEDS: iohexoL 350 MG/ML 100 ML INFUS..BTL IV (13:37)
[2024-11-19 14:21] VITALS: BP 194/83; PULSE 80; RESP 16; TEMP 36.8; O2SAT 97
== END 2024-11-19 14:22 | disposition home or self-care (01) ==
PROVIDERS: Emergency Provider Emergency Medicine; PCP Student in an Organized Health Care Education/Training Program
DX: I10 Essential (primary) hypertension (principal); E11.9 Type 2 diabetes mellitus without complications; Z79.84 Long term (current) use of oral hypoglycemic drugs; Z79.899 Other long term (current) drug therapy; Z88.2 Allergy status to sulfonamides
CPT/HCPCS: 36415; 71046; 71275; 80053; 83735; 84443; 84484; 85025; 93005; 99283; 99285; Q9967

== ENCOUNTER → 2024-11-19 08:45 | Outpatient (BNV) | payer MEDICARE, SELFPAY | PROVIDERS: Emergency Provider Emergency Medicine; PCP Student in an Organized Health Care Education/Training Program; Visit Provider Internal Medicine Cardiovascular Disease | DX: R94.31 Abnormal electrocardiogram [ECG] [EKG] (principal); R03.0 Elevated blood-pressure reading, without diagnosis of hypertension | CPT/HCPCS: 93010 ==

== ENCOUNTER → 2024-11-19 08:55 | Outpatient (BNV) | payer MEDICARE, SELFPAY | PROVIDERS: PCP Student in an Organized Health Care Education/Training Program; Visit Provider Radiology Diagnostic Radiology | DX: J98.4 Other disorders of lung (principal); K44.9 Diaphragmatic hernia without obstruction or gangrene; R03.0 Elevated blood-pressure reading, without diagnosis of hypertension | CPT/HCPCS: 71046; 71275 ==

== ENCOUNTER 2024-11-21 08:10 | Outpatient (AMB) | payer MEDICARE, SELFPAY ==
--- NOTE | 2024-11-21 08:18 | MHC.OFFVIS ---
Vital Signs 11/21/24 08:19 Height 5 ft 6 in Weight 249 lb BMI 40.2 BP 188/52 H Blood Pressure Location Rt brachial Position Sitting Respiration 20 Pulse 86 Pulse Source Pulse Oximeter Temp 98.2 F Pulse Oximetry (%) 98 Oxygen Delivery Method Room Air Intake Visit Reasons: Hypertension Recreation Worker Required: No Accompanied by: Self / Same As Patient Allergies sulfamethoxazole (From BACTRIM) Allergy (Intermediate, Verified 11/21/24 08:33) FULL BODY RASH trimethoprim (From BACTRIM) Allergy (Intermediate, Verified 11/21/24 08:33) FULL BODY RASH Sulfa (Sulfonamide Antibiotics) Allergy (Unknown, Verified 11/21/24 08:33) Unknown Medication List - Last Reconciled 11/21/24 by Gavin Avila MD aspirin 81 mg PO DAILY calcium citrate 250 mg PO DAILY carvedilol (Coreg) 6.25 mg PO BID 30 days cinnamon bark (Cinnamon) 500 mg PO DAILY furosemide 40 mg PO DAILY glipizide ER 5 mg PO DAILY aqkbftlw-jydeg-herzf-CF borate 750 mg-100 mg- 1.65 mg-108 mg ([facility]) tabs PO levothyroxine 50 mcg PO DAILY mecobalamin (vitamin B12) 1,000 mcg PO DAILY metformin 1,000 mg PO BID multivitamin 1 tab PO DAILY omega 4-tgk-iik-fish oil 60-90-500 mg (Fish Oil) 1 cap PO DAILY simvastatin 10 mg PO BEDTIME valsartan 320 mg PO DAILY HPI Comments Details: The patient is an 84-year-old female presenting with essential hypertension. The patient was sent home to monitor her blood pressure, which reportedly reached values of 200/unknown on the top before prompting her [id number]-ky-mas to advise seeking emergency care. Subsequently, she underwent blood work and imaging in the emergency department, all of which appeared unremarkable. At home, her blood pressure continues to read around 171/70 to 174. She notes a pattern in her blood pressures decreasing prior to her medication intake and increasing about an hour after administration. The patient has been on Valsartan 320 mg for hypertension, with a recent addition of Metoprolol succinate 25 mg for further blood pressure control, which has not been effective. She reported no headaches, chest pain, or shortness of breath but mentions increased fatigue with exertion. Medical History: - Essential Hypertension - Heart Disease - Hypothyroidism - Type 2 Diabetes Mellitus - Hyperlipidemia - Peripheral Edema Medications: - Valsartan 320 mg for hypertension - Metoprolol succinate 25 mg for hypertension (to be stopped) - Glipizide 5 mg for Type 2 Diabetes Mellitus - Metformin 500 mg twice daily for Type 2 Diabetes Mellitus - Levothyroxine 100 mcg for hypothyroidism - Simvastatin for hyperlipidemia Diagnostic Results: - Labs: Confirmed renal and thyroid function are within normal limits; comprehensive blood work was reviewed. - Tests: No concerns identified from recent blood work and EKG as per report. Social History: - Reports not experiencing any significant changes in living conditions or lifestyle around the time of recent hypertension exacerbation. - Engages in activities but notes fatigue with extended walking distances. [facility] Medical History (Updated 11/21/24 @ 08:45 by Gavin Avila MD) Coronary artery disease Hyperlipidemia Diabetes High cholesterol Hypothyroid HTN (hypertension) Diabetes 1.5, managed as type 2 Surgical History (Updated 06/11/24 @ 09:10 by Gill West) History of colonoscopy (~11/09/16) Family History (Updated 05/20/24 @ 11:21 by Violetta Ta MA) Mother No problems noted. Father No problems noted. Social History Housing: House Patient Tobacco Use Status: Never used Tobacco e-Cigarette/Vaping Use: Never Used service: No Current occupational status: retired Cognitive needs: No Hearing needs: Yes Vision needs: Yes (reading glasses) Review of Systems Const Details: - Cardiovascular: Denies chest pain, reports history of heart disease. - Respiratory: Denies shortness of breath. - Neurological: Denies headaches. - Endocrine: Reports hypothyroidism, takes Levothyroxine. - Gastrointestinal: Reports normal bowel movements. - Musculoskeletal: Reports increased fatigue with extended walking. All systems reviewed & are unremarkable except as reviewed in HPI and above Physical Exam Exam Exam: General: +Alert and oriented, Well nourished, No acute distress. Eye: Pupils are equal, round and reactive to light, Intact accommodation, Extraocular movements are intact, Normal conjunctiva, Vision unchanged. HENT: Normocephalic, Atraumatic, Tympanic membranes are clear, Normal hearing, Oral mucosa is moist, No pharyngeal erythema, Ear canals patent. Respiratory: Lungs CTA bilaterally, No wheeze, Respirations are non-labored. Cardiovascular: Regular rate, Regular rhythm, S1 auscultated, S2 auscultated, No murmur, Good pulses equal in all extremities, Normal peripheral perfusion, No edema. Gastrointestinal: Soft, Non-tender, Non-distended, Normal bowel sounds, No organomegaly. Musculoskeletal: Normal range of motion, Normal strength, No tenderness, No swelling, No deformity, Normal gait. Integumentary: Warm, Dry, [place], Intact. Neurologic: Alert, Oriented, Normal sensory, Normal motor function, No focal defects, Cranial Nerves II-XII are grossly intact, Normal deep tendon reflexes. Psychiatric: Cooperative, Appropriate mood & affect, Normal judgment. Vital Signs: Last Vital Signs Temp 98.2 F 11/21/24 08:19 Pulse 86 11/21/24 08:19 Resp 20 11/21/24 08:19 BP 188/52 H 11/21/24 08:19 Pulse Ox 98 11/21/24 08:19 Oxygen Delivery Method Room Air 11/21/24 08:19 BMI result Body Mass Index 40.2 Assessment & Plan Assessment & Plan (1) HTN (hypertension): Comment: - Discontinue Metoprolol succinate due to ineffectiveness for blood pressure control. (Started in ED for elevated blood pressure) - Introduce Carvedilol 6.25 mg twice daily, aiming to better manage pressure levels. (Continue Valsartan 320mg) - Monitor blood pressure one hour post-medication consistently. - Consider increase dose of Coreg if pressures do not improve; will decide upon follow-up evaluation. - Emphasize significant reduction in dietary salt intake as a lifestyle modification. - Follow-up scheduled in one week to reassess blood pressure and medication effectiveness. Code(s): I10 - Essential (primary) hypertension Category: Medical Qualifiers: Hypertension type: primary hypertension Qualified Code(s): I10 - Essential (primary) hypertension (2) Hyperlipidemia: Comment: - LDL cholesterol was well managed with previous results showing a level of 86. No changes recommended pending further review. - Continue Simvastatin 10mg Daily Code(s): E78.5 - Hyperlipidemia, unspecified Category: Medical Qualifiers: Hyperlipidemia type: other hyperlipidemia Qualified Code(s): E78.49 - Other hyperlipidemia (3) Diabetes: Comment: - Blood sugar control is currently within acceptable limits with an A1c of 6.2% from December previous year. - Continue Glipizide & Metformin 1000mg BID Code(s): E11.9 - Type 2 diabetes mellitus without complications Category: Medical Qualifiers: Diabetes mellitus type: type 2 Diabetes mellitus long winder tender insulin use: without fci use Diabetes mellitus complication status: without complication Qualified Code(s): E11.9 - Type 2 diabetes mellitus without complications (4) Hypothyroid: Comment: - Levothyroxine seems adequate given prior TSH levels were well-controlled, with no current change in therapy Code(s): E03.9 - Hypothyroidism, unspecified Category: Medical Qualifiers: Hypothyroidism type: other Qualified Code(s): E03.8 - Other specified hypothyroidism (5) Coronary artery disease: Comment: - Continue aspirin therapy as part of cardiovascular risk reduction strategy. Code(s): I25.10 - Atherosclerotic heart disease of [place] coronary artery without angina pectoris Category: Medical Qualifiers: Coronary Disease-Associated Artery/Lesion type: unspecified vessel or lesion type [place] vs. transplanted heart: unspecified whether [place] or transplanted heart Associated angina: unspecified whether angina present Qualified Code(s): I25.10 - Atherosclerotic heart disease of [place] coronary artery without angina pectoris Plan: Health Maintennace: - Addressed the importance of dietary changes, specifically reducing salt intake, for hypertension management. Patient was informed and verbally consented to the use of an ambient scribe for clinic note documentation during this visit. Plan During the visit, I reviewed the patient?s current hypertension management and identified ineffective control with Metoprolol. Consequently, we have adapted her treatment plan by introducing Carvedilol and emphasizing salt reduction. I explained the mechanics of blood pressure pills and discussed how one may respond better over another. We also reviewed her heart, diabetes, thyroid, and lipid management strategies, reinforcing consistent medication use. I have scheduled her for follow-up in one week to evaluate blood pressure responses to the new regimen and consider further variations in her plan. Medications: New carvedilol (Coreg) must administer with a meal/food 6.25 mg PO BID 60 tabs 0RF 30 days Discontinued metoprolol succinate ER (Toprol XL) Discontinued Reason: Doctor's Order 25 mg PO DAILY 30 tabs 2RF Patient Instructions: - Continue taking your blood pressure medication, Carvedilol, in the morning and evening. - Stop taking Metoprolol as discussed. - Keep reducing your salt intake. - Monitor your blood pressure an hour after taking your medications. - Follow up in one week. Coding Level of Care Code Est Pt Level 4 (22843) Complex EM visit Add On G2211 Diagnoses Primary hypertension I10 Hypertension type: primary hypertension Other hyperlipidemia E78.49 Hyperlipidemia type: other hyperlipidemia Type 2 diabetes mellitus without complication, without long-term current use of insulin E11.9 Diabetes mellitus type: type 2 Diabetes mellitus long winder tender insulin use: without long winder tender use Diabetes mellitus complication status: without complication Other specified hypothyroidism E03.8 Hypothyroidism type: other Coronary artery disease, unspecified vessel or lesion type, unspecified whether angina present, unspecified whether [place] or transplanted heart I25.10 Coronary Disease-Associated Artery/Lesion type: unspecified vessel or lesion type [place] vs. transplanted heart: unspecified whether [place] or transplanted heart Associated angina: unspecified whether angina present
[2024-11-21 08:19] VITALS: BP 188/52; PULSE 86; RESP 20; TEMP 36.8; O2SAT 98; BMI 40.2
== END 2024-11-21 08:46 | disposition home or self-care (01) ==
LOC: HO.HMCHD 08:11
PROVIDERS: PCP Student in an Organized Health Care Education/Training Program; Visit Provider Student in an Organized Health Care Education/Training Program
DX: I10 Essential (primary) hypertension (principal); E78.49 Other hyperlipidemia; E11.9 Type 2 diabetes mellitus without complications; E03.8 Other specified hypothyroidism; I25.10 Atherosclerotic heart disease of native coronary artery without angina pectoris

== ENCOUNTER → 2024-11-21 08:10 | Outpatient (BNVA) | payer MEDICARE, SELFPAY | PROVIDERS: PCP Student in an Organized Health Care Education/Training Program; Visit Provider Student in an Organized Health Care Education/Training Program | DX: I10 Essential (primary) hypertension (principal); E78.49 Other hyperlipidemia; E11.9 Type 2 diabetes mellitus without complications; E03.8 Other specified hypothyroidism; I25.10 Atherosclerotic heart disease of native coronary artery without angina pectoris; Z79.82 Long term (current) use of aspirin; Z79.84 Long term (current) use of oral hypoglycemic drugs; Z79.899 Other long term (current) drug therapy | CPT/HCPCS: 99212 ==

== ENCOUNTER 2024-11-28 07:58 | Outpatient (AMB) | payer MEDICARE, SELFPAY ==
--- OUTSIDE RECORDS SUMMARY | 2023-06-19 05:15 | XMS_ITS ---
Author Organization [facility] Address [address] [place] [id number] Care Team Providers Care Sample Prep Technician Name Role Phone Jalen Simons Primary Care Provider Asia Burris Unavailable [phone] Zachary Mackenzie Unavailable [phone] pérez Encounters Encounter Location Date Provider Diagnosis [address] [id number] 06/19/2023 Zachary Mackenzie Plan Of Treatment Next Appt Details Provider Name:Asia Giuliana mijares, 01/30/2025 09:15:00 AM, [address] [place], [phone], Progress Notes * Amanda ROBERTS MDOB:[birth year] (84 yo F)Acc No.[id number]:06/19/2023 Progress Note Patient: Zully REDDYricmallorie Navarro Provider: Rosendo Wells DPM :1940 A ge:82 Y S ex:Female Date:06/19/2023 Address:[address] [place], [place] [id number] Pcp:Jalen Simons Subjective: * Chief Complaints: * [address] pérez. * Medical History: Objective: * Vitals: Assessment: Plan: * Treatment: * Images: * The named appointment provid er may or may not be the originator of this progress note, and it is not deemed complete until electronically signed by the appointment provider. Sign off status: Pending * Provider: Rosendo Wells DPM Date: 0 06/19/2023 Generated for Nola lal/Yoly on: 08:01 AM EDT
--- NOTE | 2024-11-28 07:39 | A.OFFPC_ITS ---
Vital Signs 11/28/24 08:05 Height 5 ft 3.39 in Weight 255 lb BMI 44.6 BP 160/56 H Blood Pressure Location Rt brachial Position Sitting Respiration 20 Pulse 76 Pulse Source Pulse Oximeter Temp 97.8 F Temp Source Temporal Artery Scan Pulse Oximetry (%) 93 Oxygen Delivery Method Room Air Intake Visit Reasons: 1 week f/u bp Coach Builder Required: No Accompanied by: Spouse Allergies sulfamethoxazole (From BACTRIM) Allergy (Intermediate, Verified 11/28/24 07:39) FULL BODY RASH trimethoprim (From BACTRIM) Allergy (Intermediate, Verified 11/28/24 07:39) FULL BODY RASH Sulfa (Sulfonamide Antibiotics) Allergy (Unknown, Verified 11/28/24 07:39) Unknown Medication List - Last Reconciled 11/28/24 by Gavin Avila MD aspirin 81 mg PO DAILY calcium citrate 250 mg PO DAILY carvedilol 12.5 mg PO BID 30 days cinnamon bark (Cinnamon) 500 mg PO DAILY glipizide ER 5 mg PO DAILY edbbxhsv-qhvrj-ksoru-CF borate 750 mg-100 mg- 1.65 mg-108 mg ([facility]) tabs PO levothyroxine 50 mcg PO DAILY mecobalamin (vitamin B12) 1,000 mcg PO DAILY metformin 1,000 mg PO BID multivitamin 1 tab PO DAILY omega 8-zae-fhm-fish oil 60-90-500 mg (Fish Oil) 1 cap PO DAILY simvastatin 10 mg PO BEDTIME valsartan 320 mg PO DAILY Tobacco use date assessed: 05/20/24 Dental Screening Dental Screen Date: 11/18/24 HPI HPI Comments History of Present Illness Details The patient is an 84-year-old female presenting with management of essential hypertension. The patient's blood pressure readings have shown significant variation over the past month. The readings, obtained using an automatic machine from [employer], indicated pressures as high as 208/88 mmHg before medication was administered in the morning, which reduced to around 160/56 mmHg after medication. This variability in blood pressure has raised concerns regarding the accuracy of the device and potential causes for these fluctuations. The patient has noted a marked difference in blood pressure readings between her right and left arms, prompting concerns about potential vascular issues, such as a blocked artery. One notable instance, observed manually by a registered nurse, showed a similar discrepancy. The patient has an increased concern due to these variations and the potential implications for her long-term health, given the duration of her marriage. Recently, the patient noticed that her pulse has been dropping, which could be an effect of her current antihypertensive medication regimen. Additionally, the patient experiences mild dyspnea during increased physical exertion, such as walking. This is alleviated when she rests. She does not experience any orthopnea but regularly uses a pillow while sleeping due to discomfort. There is no mention of lower extremity swelling. The patient had not been monitoring her blood pressure until recently, upon my recommendation. She acquired a blood pressure machine and has since been diligently monitoring her pressures, although she expresses skepticism regarding the reliability of the device. The patient also denied experiencing any symptoms that might suggest arterial blockage, such as severe headaches or sudden unilateral weakness. Medical History: - Essential Hypertension Medications: - Carvedilol, 12.5 mg, for hypertension - Valsartan, for hypertension Social History: - The patient has been for 61 ye ars and is concerned about maintaining her health. - Regular home monitoring of blood press ure was initiated upon medical advice. [facility] Medical History (Updated 11/28/24 @ 09:02 by Gavin Avila MD) Coronary artery disease Hyperlipidemia Diabetes High cholesterol Hypothyroid HTN (hypertension) Diabetes 1.5, managed as type 2 Surgical History (Updated 06/11/24 @ 09:10 by Gill West) History of colonoscopy (~11/09/16) Family History (Updated 05/20/24 @ 11:21 by Violetta Ta MA) Mother No problems noted. Father No problems noted. Social History Housing: House Patient Tobacco Use Status: Never used Tobacco e-Cigarette/Vaping Use: Never Used service: No Current occupational status: retired Cognitive needs: No Hearing needs: Yes Vision needs: Yes (reading glasses) Questionnaire Thrive Questionnaire Date Thrive assessed: 05/20/24 SHELLEY-7 AMB Questionnaire SHELLEY-7 Date SHELLEY - 7 assessed: 05/20/24 Source: Developed by Drs. Jasiel Santa, Chinyere Ro, Valdo Ayers and colleagues, with an educational anneliese from [employer] Review of Systems Const Details: - Cardiovascular: Reports fluctuations in blood pressure and a decrease in pulse rate. - Respiratory: Reports dyspnea on exertion, denies orthopnea. - Musculoskeletal: Denies swelling of the lower extremities. All systems reviewed & are unremarkable except as reviewed in HPI and above Physical exam (Primary Care) Vital Signs: Last Vital Signs Temp 97.8 F 11/28/24 08:05 Pulse 76 11/28/24 08:05 Resp 20 11/28/24 08:05 BP 160/56 H 11/28/24 08:05 Pulse Ox 93 11/28/24 08:05 Oxygen Delivery Method Room Air 11/28/24 08:05 BMI result Body Mass Index 44.6 Tobacco/Smoking Status: Tobacco use Status Tobacco use date assessed 05/20/24 11/28/24 07:41 Patient Tobacco Use Status Never used Tobacco 11/28/24 07:41 e-Cigarette/Vaping Use Never Used 11/28/24 07:41 Thrive Assessment: Date of Thrive Assessment Date Thrive assessed 05/20/24 11/28/24 07:41 Const Other: General: +Alert and oriented, Well nourished, No acute distress. Eye: Pupils are equal, round and reactive to light, Intact accommodation, Extraocular movements are intact, Normal conjunctiva, Vision unchanged. HENT: Normocephalic, Atraumatic, Tympanic membranes are clear, Normal hearing, Oral mucosa is moist, No pharyngeal erythema, Ear canals patent. Respiratory: Lungs CTA bilaterally, No wheeze, Respirations are non-labored, but patient reports heavy breathing after walking. Cardiovascular: Regular rate, Regular rhythm, S1 auscultated, S2 auscultated, No murmur, Good pulses equal in all extremities, Normal peripheral perfusion, No edema. Blood pressure readings show significant variation between arms. Gastrointestinal: Soft, Non-tender, Non-distended, Normal bowel sounds, No organomegaly. Musculoskeletal: Normal range of motion, Normal strength, No tenderness, No swelling, No deformity, Normal gait. Integumentary: Warm, Dry, [place], Intact. Neurologic: Alert, Oriented, Normal sensory, Normal motor function, No focal defects, Cranial Nerves II-XII are grossly intact, Normal deep tendon reflexes. Psychiatric: Cooperative, Appropriate mood & affect, Normal judgment. Coding Level of Care Code Est Pt Level 4 (29956) Complex EM visit Add On G2211 Diagnoses Primary hypertension I10 Hypertension type: primary hypertension Coronary artery disease, unspecified vessel or lesion type, unspecified whether angina present, unspecified whether [place] or transplanted heart I25.10 Associated angina: unspecified whether angina present Coronary Disease-Associated Artery/Lesion type: unspecified vessel or lesion type [place] vs. transplanted heart: unspecified whether [place] or transplanted heart Other hyperlipidemia E78.49 Hyperlipidemia type: other hyperlipidemia Type 2 diabetes mellitus without complication, without long-term current use of insulin E11.9 Diabetes mellitus complication status: without complication Diabetes mellitus termite control technician insulin use: without termite control technician use Diabetes mellitus type: type 2 Other specified hypothyroidism E03.8 Hypothyroidism type: other Assessment & Plan Assessment & Plan (1) HTN (hypertension): Comment: - Despite being on Coreg 12.5mg BID & Valsartan 320mg Daily, pressures remain elevated to the 160's to 200's. - Initiated chlorthalidone 12.5 mg daily to achieve better blood pressure control. - Continue BID blood pressure monitoring - An echocardiogram has been planned to check cardiac structure since variations suggest potential vascular issues. - Schedule a one-week follow-up visit to evaluate blood pressure response and adjust the regimen as needed. Code(s): I10 - Essential (primary) hypertension Category: Medical Qualifiers: Hypertension type: primary hypertension Qualified Code(s): I10 - Essential (primary) hypertension (2) Coronary artery disease: Comment: - Continue aspirin therapy as part of cardiovascular risk reduction strategy. Code(s): I25.10 - Atherosclerotic heart disease of [place] coronary artery without angina pectoris Category: Medical Qualifiers: Associated angina: unspecified whether angina present Coronary Disease- Associated Artery/Lesion type: unspecified vessel or lesion type [place] vs. transplanted heart: unspecified whether [place] or transplanted heart Qualified Code(s): I25.10 - Atherosclerotic heart disease of [place] coronary artery without angina pectoris (3) Hyperlipidemia: Comment: - LDL cholesterol was well managed with previous results showing a level of 86. No changes recommended pending further review. - Continue Simvastatin 10mg Daily Code(s): E78.5 - Hyperlipidemia, unspecified Category: Medical Qualifiers: Hyperlipidemia type: other hyperlipidemia Qualified Code(s): E78.49 - Other hyperlipidemia (4) Diabetes: Comment: - Blood sugar control is currently within acceptable limits with an A1c of 6.2% from November previous year. - Continue Glipizide & Metformin 1000mg BID Code(s): E11.9 - Type 2 diabetes mellitus without complications Category: Medical Qualifiers: Diabetes mellitus complication status: without complication Diabetes mellitus intermediate insulin use: without intermediate use Diabetes mellitus type: type 2 Qualified Code(s): E11.9 - Type 2 diabetes mellitus without complications (5) Hypothyroid: Comment: - Levothyroxine seems adequate given prior TSH levels were well-controlled, with no current change in therapy Code(s): E03.9 - Hypothyroidism, unspecified Category: Medical Qualifiers: Hypothyroidism type: other Qualified Code(s): E03.8 - Other specified hypothyroidism Plan During today?s consultation, I discussed the management of the patient's essential hypertension with her and her family. We talked about the current discrepancies in her blood pressure readings and the potential reasons behind these variations. It became apparent that consistent monitoring with a reliable device is necessary as her current readings are highly variable. We decided against increasing carvedilol dose to protect the heart rate, instead adding chlorthalidone to her treatment plan. I expressed the importance of adherence to the medication regimen and maintaining an accurate log of blood pressure readings. An echocardiogram has been planned to assess the heart structure and function due to the noted discrepancies in blood pressure between arms. She was informed about the potential risks and benefits of the adjusted treatment and agreed on the plan. Follow-up is necessary in a week to reassess and adjust the treatment plan if needed. Orders: Orders CA echo transthoracic complete Today I10 - Essential (primary) hypertension, I25.10 - Atherosclerotic heart disease of [place] coronary artery without angina pectoris Medications: New chlorthalidone 12.5 mg (1/2 x 25 mg) PO DAILY 15 tabs 2RF 30 days Patient Instructions: - Continue taking carvedilol and valsartan as directed. - Begin taking chlorthalidone 12.5 mg every morning. - Take blood pressure readings twice daily, using the left arm, one hour after medication in the morning and at suppertime. - Keep a detailed log of these readings and bring it to your next appointment. - Ensure she is seated and relaxed before taking each reading. - Watch for symptoms such as dizziness or a rapid drop in blood pressure, and report these immediately. - Maintain follow-up appointment within a week to reevaluate the blood pressure management plan. - insulation cupola charger new medication from the pharmacy as discussed.
--- OUTSIDE RECORDS SUMMARY | 2024-11-28 08:02 | XMS_ITS | Patient Health Record ---
Author Organization [facility] Address [address] [place] [address] Care Team Providers Care Bus Boy Name Role Phone Jalen Simons Primary Care Provider Asia Burris Unavailable [phone] Allergies No Known Allergies Results Component Value [...] Polyneuropathy due to type 2 diabetes mellitus (448332330) Type 2 diabetes mellitus with diabetic polyneuropathy (E11.42) Active confirmed Vital Signs Blood pressure diastolic 65 mm Hg 09/30/2024 Height 5 ft 3 in in 09/30/2024 Blood pressure systolic 126 mm Hg 09/30/2024 Weight 240 lbs 09/30/2024 BMI 42.51 kg/m2 09/30/2024 Procedures Procedure Date Ordered Date Performed Result Body Sit e 28743-CEBUHFE NAIL, 6 OR MORE 01/17/2024 N/A 82917-GYJL SKIN LESIONS, 2 TO 4 01/17/2024 N/A 97568-HZHIXGH NAIL, 6 OR MORE 05/29/2024 N/A 36121-ZXTO SKIN LESIONS, 2 TO 4 05/29/2024 N/A 18044-BGWWEDH NAIL, 6 OR MORE 09/30/2024 N/A 00151-CNKY SKIN LESIONS, 2 TO 4 09/30/2024 N/A Encounters Encounter Location Date Provider [facility] [address] 01/17/2024 Asia Burris Type 2 diabetes mellitus with diabetic polyneuropathy E11.42 and Tinea unguium B35.[address] [address] 05/29/2024 Asia Burris Type 2 diabetes mellitus with diabetic polyneuropathy E11.42 and Tinea unguium B35.[address] [address] 09/30/2024 Asia Burris Type 2 diabetes mellitus [...] Treatment Pending Test Test Name Order Date 56102-ROJERPJ NAIL, 6 OR MORE 07/27/2011 72459-BERMIKF NAIL, 6 OR MORE 10/27/2011 26271-ZKVAORY NAIL, 6 OR MORE 01/26/2012 49331-HMFHQKK NAIL, 6 OR MORE 05/24/2012 50574-IGQIWMW NAIL, 6 OR MORE 09/24/2012 13876-GYKHGVB NAIL, 6 OR MORE 01/14/2013 92399-WOAVPOB NAIL, 6 OR MORE 06/10/2013 04973-UEDVAPE NAIL, 6 OR MORE 10/21/2013 01003-YWAGFZK NAIL, 6 OR MORE 01/20/2014 22825-DOXCSLB NAIL, 6 OR MORE 05/21/2014 68059-TRIAEKX NAIL, 6 OR MORE 08/20/2014 92597-FZSQSTN NAIL, 6 OR MORE 12/17/2014 39014-NQRHUVH NAIL, 6 OR MORE 05/25/2015 84417-VFTGVTR NAIL, 6 OR MORE 09/21/2015 70045-DMGDBKS NAIL, 6 OR MORE 01/21/2016 98470-ZHPRLEG NAIL, 6 OR MORE 06/06/2016 03081-NDVXDNU NAIL, 6 OR MORE 10/10/2016 17587-BGEFSLM NAIL, 6 OR MORE 01/23/2017 28810-COLBRHK NAIL, 6 OR MORE 06/14/2017 91678-RXZKHCI NAIL, 6 OR MORE 10/18/2017 97037-ZDAPVJE NAIL, 6 OR MORE 01/17/2018 18931-YNBGBVA NAIL, 6 OR MORE 01/17/2024 09496-SQQNRSM NAIL, 6 OR MORE 05/29/2024 73947-SWQAEFG NAIL, 6 OR MORE 09/30/2024 23291-Yoysyait Plate 10/27/2011 23118-Liqysblq Plate 01/26/2012 83751-DCWZ SKIN LESIONS, OVER 4 01/26/20 12 00521-RJVW SKIN LESIONS, OVER 4 05/25/19 13 95815-ZQBC SKIN LESIONS, OVER 4 10/27/19 12 53845-LNLE SKIN LESIONS, OVER 4 07/27/19 12 57998-YNZG SKIN LESIONS, OVER 4 10/22/19 14 83470-JMVR SKIN LESIONS, OVER 4 06/11/19 14 40893-YJEE SKIN LESIONS, OVER 4 01/15/20 13 10293-XZSD SKIN LESIONS, OVER 4 09/25/19 13 25549-BBXD SKIN LESIONS, OVER 4 06/07/19 17 44210-MFYT SKIN LESIONS, OVER 4 10/11/19 17 83671-JAIY SKIN LESIONS, OVER 4 01/21/20 16 73878-PEFT SKIN LESIONS, OVER 4 09/21/19 16 98882-VAHK SKIN LESIONS, OVER 4 05/25/19 16 40841-CUOB SKIN LESIONS, OVER 4 12/18/19 15 26687-DTXW SKIN LESIONS, OVER 4 08/21/19 15 23395-EJBZ SKIN LESIONS, OVER 4 05/22/19 15 65257-YDDN SKIN LESIONS, OVER 4 01/21/20 14 54454-NSZE SKIN LESIONS, OVER 4 05/17/19 19 02324-IHSQ SKIN LESIONS, OVER 4 08/21/19 19 39008-UCEA SKIN LESIONS, OVER 4 01/24/20 19 51273-ONFX SKIN LESIONS, OVER 4 06/05/19 20 80406-VZHI SKIN LESIONS, OVER 4 09/30/19 20 00246-LPGV SKIN LESIONS, OVER 4 01/06/20 20 80404-VMOG SKIN LESIONS, OVER 4 06/30/19 21 18222-XKBN SKIN LESIONS, OVER 4 10/15/19 21 28310-QCOY SKIN LESIONS, OVER 4 05/28/19 22 41419-VYKY SKIN LESIONS, OVER 4 01/18/20 18 99090-KGCV SKIN LESIONS, OVER 4 10/19/19 18 38976-ENFS SKIN LESIONS, OVER 4 06/15/19 18 33196-KLYI SKIN LESIONS, OVER 4 01/24/20 17 89438-VJLA SKIN LESIONS, 2 TO 4 10/01/19 25 33684-AXPM SKIN LESIONS, 2 TO 4 05/30/19 25 03892-YXBM SKIN LESIONS, 2 TO 4 01/17/20 24 Next Appt Details Provider Name:Asia Giordano maryana, 01/30/2025 09:15:00 AM, [address] [facility], [place], [address], Insurance Providers Payer Name Payer Address Payer Phone Subscriber Number Group Number Insured Name Patient Relationship to Insured Coverage Start Date Coverage End Date Medicare National [employer] [address] [place] [address] [id number] Amanda Hughes Self - patient is the insured [facility] [address] [place] [address] [phone] [id number] Amanda Hughes Self - patient is the insured Medical (General) History Medical History History ICD Code hypertension type II diabetes Surgical History Surgery Date(Month/Year) laser surgery left knee replacement 04/2020 right knee replacement 05/31/2021
--- OUTSIDE RECORDS SUMMARY | 2024-11-28 08:02 | XMS_ITS | Patient Health Record ---
Author Organization [facility] Address [address] [place] [address] Care Team Providers Care Pediatric Clinical Nurse Specialist Name Role Phone Paradise (RETIRED) Fredrick MOHR [...] GM As directed Orally Over the specified time.; Duration: 1 day(s) Active Fish Oil Active Aspir-81 [...] Problem Status W/U Status Risk Notes Problem Colon cancer screening (087928292) Colon cancer screening (Z12.11) Active confirmed Problem Long-term current use of antiplatelet drug (160940933584861 ) detention (current) use of aspirin (Z79.82) Active confirmed Problem Long-term current use of drug therapy (664062193) Long-term current use of high risk medication other than anticoagulant (Z79.899) Active confirmed Plan Of Treatment Future Test Test Name Order Date COLONOSCOPY 08/11/2016 Insurance Providers Payer Name Payer Address Payer Phone Subscriber Number Group Number Insured Name Patient Relationship to Insured Coverage Start Date Coverage End Date MEDICARE OF [place] [address] [place] [address] [id number] SHAD ROBERTS Self - patient is the insured [employer] CLAIMS [address] [place] [address] [id number] SHAD ROBERTS Self - patient is the insured Medical (General) History Medical History History ICD Code diabetes mellitus hypertension hypothyroidism elevated cholesterol Surgical History Surgery Date(Month/Year) hysterectomy tonsillectomy
[2024-11-28 08:05] VITALS: BP 160/56; PULSE 76; RESP 20; TEMP 36.6; O2SAT 93; BMI 44.6
== END 2024-11-28 08:45 | disposition home or self-care (01) ==
LOC: HO.HMCHD 07:59
PROVIDERS: PCP Student in an Organized Health Care Education/Training Program; Visit Provider Student in an Organized Health Care Education/Training Program
DX: I10 Essential (primary) hypertension (principal); I25.10 Atherosclerotic heart disease of native coronary artery without angina pectoris; E78.49 Other hyperlipidemia; E11.9 Type 2 diabetes mellitus without complications; E03.8 Other specified hypothyroidism

== ENCOUNTER → 2024-11-28 07:58 | Outpatient (BNVA) | payer MEDICARE, SELFPAY | PROVIDERS: PCP Student in an Organized Health Care Education/Training Program; Visit Provider Student in an Organized Health Care Education/Training Program | DX: I10 Essential (primary) hypertension (principal); I25.10 Atherosclerotic heart disease of native coronary artery without angina pectoris; E78.5 Hyperlipidemia, unspecified; E11.9 Type 2 diabetes mellitus without complications; E03.8 Other specified hypothyroidism; Z79.82 Long term (current) use of aspirin; Z79.84 Long term (current) use of oral hypoglycemic drugs; Z79.899 Other long term (current) drug therapy | CPT/HCPCS: 99212 ==

== ENCOUNTER 2024-12-05 08:33 | Outpatient (AMB) | payer MEDICARE, SELFPAY ==
--- NOTE | 2024-12-05 08:36 | A.OFFPC_ITS ---
Vital Signs 12/05/24 08:42 Height 5 ft 3 in Weight 255 lb BMI 45.2 BP 144/63 H Blood Pressure Location Lt brachial Position Sitting Respiration 20 Pulse 63 Pulse Source Pulse Oximeter Temp 97.8 F Temp Source Temporal Artery Scan Pulse Oximetry (%) 95 Oxygen Delivery Method Room Air Intake Visit Reasons: 1 week f/u BP's Control Area Operator Required: No Allergies sulfamethoxazole (From BACTRIM) Allergy (Intermediate, Verified 12/05/24 08:36) FULL BODY RASH trimethoprim (From BACTRIM) Allergy (Intermediate, Verified 12/05/24 08:36) FULL BODY RASH Sulfa (Sulfonamide Antibiotics) Allergy (Unknown, Verified 12/05/24 08:36) Unknown Medication List - Last Reconciled 12/05/24 by Gavin Avila MD aspirin 81 mg PO DAILY calcium citrate 250 mg PO DAILY carvedilol 12.5 mg PO BID 30 days cinnamon bark (Cinnamon) 500 mg PO DAILY furosemide (Lasix) 40 mg PO DAILY glipizide ER 5 mg PO DAILY bgpgqkeg-zoikx-exuez-CF borate 750 mg-100 mg- 1.65 mg-108 mg ([facility]) tabs PO levothyroxine 50 mcg PO DAILY mecobalamin (vitamin B12) 1,000 mcg PO DAILY metformin 1,000 mg PO BID multivitamin 1 tab PO DAILY omega 9-dhl-yvi-fish oil 60-90-500 mg (Fish Oil) 1 cap PO DAILY simvastatin 10 mg PO BEDTIME valsartan 320 mg PO DAILY Tobacco use date assessed: 05/20/24 Dental Screening Dental Screen Date: 11/18/24 HPI HPI Comments History of Present Illness Details The patient is an 84-year-old female presenting with management of hypertension and evaluation of shortness of breath. The patient started taking antihypertensive medications approximately two and a half weeks ago. Despite this, she reports variable blood pressures at home, with readings as high as 140s and occasional dips to 119 mmHg. The patient has recently been experiencing shortness of breath, which she associates with her medication regimen. She notes improvement in breathing since re-introducing Lasix (furosemide) 40 mg. The patient indicates an underlying diagnosis of heart failure is suspected, and an echocardiogram has been scheduled to further evaluate her condition. The patient experiences occasional upset stomach, a problem she attributes to her medication. She reports not eating breakfast, having only coffee in the morning. She finds some relief in eating tapioca pudding. Her previous water pil l, a diuretic, was discontinued initially, which led to improved respiratory function, but was advised to start again due to shortness of breath. Medical History: - Essential Hypertension - Heart Failure - Diabetes Mellitus Type 2 - Hyperlipidemia Surgical History: - Cardiac Ablation Medications: - Valsartan 320 mg daily for hypertensio n - Chlorthalidone 12.5 mg (recent change to consider 25 mg) for hypertension - Carvedilol (Coreg) 12.5 mg for hyperte nsion - Lasix (Furosemide) 40 mg as needed for heart failure symptoms - Aspirin 81 mg for heart disease - Glipizide for diabetes - Metformin 1000 mg twice a day for diab etes - Levothyroxine 50 mcg for thyroid funct ion - Simvastatin 10 mg for hyperlipidemia Diagnostic Results: - Echocardiogram scheduled for December 30 Social History: - Lives with family; has a bhjyypda-jp-i aw who assists in care - Drinks coffee in the morning; skips br eakfast - Consumes tapioca pudding to ease upset stomach - Received flu shot in October [facility] Medical History (Updated 12/05/24 @ 09:23 by Gavin Avila MD) Heart failure Coronary artery disease Hyperlipidemia Diabetes High cholesterol Hypothyroid HTN (hypertension) Diabetes 1.5, managed as type 2 Surgical History (Updated 06/11/24 @ 09:10 by Gill West) History of colonoscopy (~11/09/16) Family History (Updated 05/20/24 @ 11:21 by Violetta Ta MA) Mother No problems noted. Father No problems noted. Social History Housing: House Patient Tobacco Use Status: Never used Tobacco e-Cigarette/Vaping Use: Never Used service: No Current occupational status: retired Cognitive needs: No Hearing needs: Yes Vision needs: Yes (reading glasses) Questionnaire Thrive Questionnaire Date Thrive assessed: 05/20/24 SHELLEY-7 AMB Questionnaire SHELLEY-7 Date SHELLEY - 7 assessed: 05/20/24 Source: Developed by Drs. Jasiel Santa, Chinyere Ro, Valdo Ayers and colleagues, with an educational anneliese from [employer]. Review of Systems Narrative - Cardiovascular: Reports variable hypertension - Respiratory: Reports shortness of breath improved with diuretic therapy - Gastrointestinal: Reports upset stomach - Neurological: Reports stable pulse in the 60s due to Coreg All systems reviewed & are unremarkable except as reviewed in HPI and above Physical exam (Primary Care) Vital Signs: Last Vital Signs Temp 97.8 F 12/05/24 08:42 Pulse 63 12/05/24 08:42 Resp 20 12/05/24 08:42 BP 144/63 H 12/05/24 08:42 Pulse Ox 95 12/05/24 08:42 Oxygen Delivery Method Room Air 12/05/24 08:42 BMI result Body Mass Index 45.2 Tobacco/Smoking Status: Tobacco use Status Tobacco use date assessed 05/20/24 12/05/24 08:39 Patient Tobacco Use Status Never used Tobacco 12/05/24 08:39 e-Cigarette/Vaping Use Never Used 12/05/24 08:39 Thrive Assessment: Date of Thrive Assessment Date Thrive assessed 05/20/24 12/05/24 08:39 Narrative General: Alert and oriented, Well nourished, No acute distress. Eye: Pupils are equal, round and reactive to light, Intact accommodation, Extraocular movements are intact, Normal conjunctiva, Vision unchanged. HENT: Normocephalic, Atraumatic, Tympanic membranes are clear, Normal hearing, Oral mucosa is moist, No pharyngeal erythema, Ear canals patent. Respiratory: Lungs CTA bilaterally, No wheeze, Respirations are non-labored, Shortness of breath resolved after coming back onto Lasix. Cardiovascular: Regular rate, Regular rhythm, S1 auscultated, S2 auscultated, No murmur, Good pulses equal in all extremities, Normal peripheral perfusion, No edema. Gastrointestinal: Soft, Non-tender, Non-distended, Normal bowel sounds, No organomegaly, Complains of upset stomach. Musculoskeletal: Normal range of motion, Normal strength, No tenderness, No swelling, No deformity, Normal gait. Integumentary: Warm, Dry, [place], Intact. Neurologic: Alert, Oriented, Normal sensory, Normal motor function, No focal defects, Cranial Nerves II-XII are grossly intact, Normal deep tendon reflexes. Psychiatric: Cooperative, Appropriate mood & affect, Normal judgment. Coding Level of Care Code Est Pt Level 4 (22405) Complex EM visit Add On G2211 Diagnoses Primary hypertension I10 Hypertension type: primary hypertension Heart failure, unspecified HF chronicity, unspecified heart failure type I50.9 Heart failure type: unspecified Heart failure chronicity: unspecified Coronary artery disease, unspecified vessel or lesion type, unspecified whether angina present, unspecified whether [place] or transplanted heart I25.10 Associated angina: unspecified whether angina present Coronary Disease-Associated Artery/Lesion type: unspecified vessel or lesion type Trib[place] vs. transplanted heart: unspecified whether [place] or transplanted heart Other hyperlipidemia E78.49 Hyperlipidemia type: other hyperlipidemia Type 2 diabetes mellitus without complication, without long-term current use of insulin E11.9 Diabetes mellitus complication status: without complication Diabetes mellitus termite exterminator helper insulin use: without termite exterminator helper use Diabetes mellitus type: type 2 Other specified hypothyroidism E03.8 Hypothyroidism type: other Assessment & Plan Assessment & Plan (1) HTN (hypertension): Comment: - Adjust chlorthalidone to 25 mg daily to better control blood pressure. - Monitor blood pressures at home daily for the next week. (Been in the 140's to 150's at home) - Continue Coreg & Valsartan - Aim for blood pressure under 130 to 120 mmHg. - Discuss blood pressure monitoring results to evaluate effectiveness. Code(s): I10 - Essential (primary) hypertension Category: Medical Qualifiers: Hypertension type: primary hypertension Qualified Code(s): I10 - Essential (primary) hypertension (2) Heart failure: Comment: - Given worsening shortness of breath on discontinuation of lasix with improvement with restarting medication likely has a component of Heart Failure - Will continue lasix for now and await results of ECHO Code(s): I50.9 - Heart failure, unspecified Category: Medical Qualifiers: Heart failure type: unspecified Heart failure chronicity: unspecified Qualified Code(s): I50.9 - Heart failure, unspecified (3) Coronary artery disease: Comment: - Continue aspirin therapy as part of cardiovascular risk reduction strategy. Code(s): I25.10 - Atherosclerotic heart disease of [place] coronary artery without angina pectoris Category: Medical Qualifiers: Associated angina: unspecified whether angina present Coronary Disease- Associated Artery/Lesion type: unspecified vessel or lesion type [place] vs. transplanted heart: unspecified whether [place] or transplanted heart Qualified Code(s): I25.10 - Atherosclerotic heart disease of [place] coronary artery without angina pectoris (4) Hyperlipidemia: Comment: - LDL cholesterol was well managed with previous results showing a level of 86. No changes recommended pending further review. - Continue Simvastatin 10mg Daily Code(s): E78.5 - Hyperlipidemia, unspecified Category: Medical Qualifiers: Hyperlipidemia type: other hyperlipidemia Qualified Code(s): E78.49 - Other hyperlipidemia (5) Diabetes: Comment: - Blood sugar control is currently within acceptable limits with an A1c of 6.2% from December previous year. - Continue Glipizide & Metformin 1000mg BID Code(s): E11.9 - Type 2 diabetes mellitus without complications Category: Medical Qualifiers: Diabetes mellitus complication status: without complication Diabetes mellitus termite exterminator helper insulin use: without termite exterminator helper use Diabetes mellitus type: type 2 Qualified Code(s): E11.9 - Type 2 diabetes mellitus without complications (6) Hypothyroid: Comment: - Levothyroxine seems adequate given prior TSH levels were well-controlled, with no current change in therapy Code(s): E03.9 - Hypothyroidism, unspecified Category: Medical Qualifiers: Hypothyroidism type: other Qualified Code(s): E03.8 - Other specified hypothyroidism Plan: Health Maintenance: - Flu vaccination given October 18 Patient was informed and verbally consented to the use of an ambient scribe for clinic note documentation during this visit. Plan During the visit, I discussed the patient's hypertension and its current management, emphasizing the rationale for increasing the dose of chlorthalidone to better regulate blood pressure levels. The potential risk of overly lowering her blood pressure was highlighted, with advice to monitor daily at home. We also addressed concerns about her shortness of breath, noting improvement with Lasix and planning an echocardiogram to evaluate for potential heart failure. Her medication regimen for diabetes was reviewed and continued as it currently stands to maintain glycemic control. Simvastatin for hyperlipidemia was affirmed as part of her cardiovascular risk reduction strategy. I emphasized the importance of continuing dietary modifications and home blood pressure checks as part of comprehensive care. Orders: Orders Comprehensive Met. Panel Today I10 - Essential (primary) hypertension Medications: New chlorthalidone 25 mg PO DAILY 90 tabs 0RF Patient Instructions: - Take the increased dose of chlorthalidone as prescribed. - Monitor blood pressure at home daily for a week and note any changes. - Continue taking Lasix for symptoms of fluid retention. - Continue current medications for diabetes and cholesterol. - Submit to blood work today to check electrolytes. - Ensure echocardiogram is completed as scheduled. - Report any new or worsening symptoms promptly.
[2024-12-05 08:42] VITALS: BP 144/63; PULSE 63; RESP 20; TEMP 36.6; O2SAT 95; BMI 45.2
== END 2024-12-05 09:16 | disposition home or self-care (01) ==
LOC: HO.HMCHD 08:34
PROVIDERS: PCP Student in an Organized Health Care Education/Training Program; Visit Provider Student in an Organized Health Care Education/Training Program
DX: I10 Essential (primary) hypertension (principal); I50.9 Heart failure, unspecified; I25.10 Atherosclerotic heart disease of native coronary artery without angina pectoris; E78.49 Other hyperlipidemia; E11.9 Type 2 diabetes mellitus without complications; E03.8 Other specified hypothyroidism

== ENCOUNTER 2024-12-05 09:31 | Outpatient (REF) | payer MEDICARE, SELFPAY ==
[2024-12-05 10:23] LABS: Alanine Aminotransferase 23 U/L (0-31); Albumin Level 4.4 g/dL (3.5-5.0); Alkaline Phosphatase 46 U/L (39-117); Anion Gap 16 (12-20); Aspartate Amino Transferase 19 U/L (5-31); Blood Urea Nitrogen 18 mg/dL (9-16); Calcium 9.9 mg/dL (8.4-10.2); Carbon Dioxide 36 mmol/L (22-29); Chloride 95 mmol/L (96-108); Estimated Glomerular Filt Rate 53; Potassium 3.5 mmol/L (3.3-5.1); Sodium 143 mmol/L (135-145); Total Protein 7.0 g/dL (6.5-8.0)
== END 2024-12-05 09:32 | disposition home or self-care (01) ==
LOC: HO.10HDL 09:31
PROVIDERS: Visit Provider Student in an Organized Health Care Education/Training Program
DX: I10 Essential (primary) hypertension (principal)
CPT/HCPCS: 36415; 80053; 99212

== ENCOUNTER → 2024-12-31 09:26 | Outpatient (REF) | payer MEDICARE, SELFPAY ==
--- NOTE | 2024-12-31 09:27 | CA_ITS ---
Transthoracic Echocardiogram Patient (Last, First, Middle): Amanda Hughes, Gender: F Date of : 1940 Age: 84 Procedure Date: 12/31/2024 Procedure Type: Transthoracic Echocardiogram Location: OP Height: 160.02 cm Weight: 110.22 kg BSA: 2.10 m2 Heart Rate: bpm BP: 124 / 80 mmHg Concrete Rubber: Referring MD: Gavin Avila MD Symptoms: I10 - Essential (primary) hypertension Study Quality: Adequate ECG Rhythm: Sinus Conclusions: - The left ventricular systolic function is normal. The calculated ejection fraction is 63% by biplane method. - The basal inferior segment is hypokinetic. - Evidence suggests grade II (moderate) diastolic dysfunction. - Trace to mild aortic regurgitation. - There is mild mitral annular calcification. Findings Left Ventricle Normal left ventricular cavity size. There is mildly increased left ventricular wall thickness. The left ventricular systolic function is normal. The calculated ejection fraction is 63% by biplane method. Evidence suggests grade II (moderate) diastolic dysfunction. Wall Motion Rest Echo Findings The basal inferior segment is hypokinetic. Right Ventricle Mildly increased right ventricular cavity size. Atria Mild biatrial enlargement. Aortic Valve There is mild calcification of the aortic valve. There is no aortic valve stenosis. Trace to mild aortic regurgitation. Mitral Valve There is mild mitral annular calcification. There is no mitral valve regurgitation. There is no mitral valve stenosis. Pulmonic Valve The pulmonic valve is likely normal. Tricuspid Valve There is trace tricuspid valve regurgitation. There is no evidence of pulmonary hypertension. Great Vessels The asc aorta is normal in size. Venous The inferior vena cava is normal in size and collapses greater than 50% with inspiration. Pericardium/Pleural There is no evidence of pericardial effusion. Prior Study Comparison No prior study available for comparison. Measurements 2D Linear Measurements IVSd: 1.24 0.6-0.9/0.6-1.0 cm LVIDd: 4.47 3.9-5.3/4.2-5.9 cm LVIDd Index: 2.13 2.4-3.2/2.2-3.1 cm/m2 LVIDs: 2.86 2.0-3.6 cm LVPWd: 1.25 0.7-1.1 cm Ao Root: 3.00 2.1-3.5 cm LA Diam: 3.70 2.7-3.8/3.0-4.0 cm LAIDs Index: 1.76 1.5-2.3 cm/m2 LV Mass: 257.75 67-162/88-224 g LV Mass Index: 122.74 43-95/49-115 g/m2 LVOT Diam: 2.10 3.0+(-)1.3 cm 2D Systolic Function EF 4C: 64.60 >55% EF 2C: 60.20 >55% EF BiP: 62.80 >55% Mitral Valve MV Pk E: 1.23 MV PK A: 1.16 MV Decel Time: 206.00 E/A: 1.10 E'Lateral: 5.87 E'Medial: 5.11 E/E' Med: 24.10 E/E' Lat: 21.00 PHT: 60.00 MVA PHT: 3.67 Decel [place]: 5.98 Aortic Valve AoV Pk Jose: 1.99 AoV Mn Jose: 1.35 AoV VTI: 0.53 AoV Pk Grad: 16.00 Aov Mn Grad: 8.00 [place]NE Cont.VTI: 1.82 LVOT LVOT Pk Jose: 0.98 LVOT Mn Jose: 0.67 LVOT VTI: 0.28 LVOT Pk Grad: 4.00 LVOT Mn Grad: 2.00 LVOT Diam: 2.10 LVOT Area: 3.46 Diastolic Function MV Pk E: 1.23 MV Pk A: 1.16 E/A: 1.10 E'Medial: 5.11 E/E' Med: 24.10 E' Laterial: 5.87 E/E' Lat: 21.00 Right Ventricle TAPSE (mm): 32.00 TVS' Jose: 13.00 Tricuspid Valve TR Pk Jose: 2.73 TR Pk Grad: 30.00 RA Press: 3.00 RVSP: 33.00 Great Vessels Aorta Ao Root-2D: 3.00 2.0-3.7 cm Ao Asc: 3.40 2.1-3.4 cm Pulmonary Valve PV Pk Jose: 1.10 Peak PV Grad: 5.00 Updated in Other Vendor System with Status of Final Reece Shane MD electronically signed on 12/31/2024 3:45:48 PM with status of Final
== END ==
LOC: HO.CARD 09:26
PROVIDERS: PCP Student in an Organized Health Care Education/Training Program; Visit Provider Student in an Organized Health Care Education/Training Program
DX: I10 Essential (primary) hypertension (principal); I25.10 Atherosclerotic heart disease of native coronary artery without angina pectoris
CPT/HCPCS: 93306

== ENCOUNTER → 2024-12-31 09:27 | Outpatient (BNV) | payer MEDICARE, SELFPAY | PROVIDERS: PCP Student in an Organized Health Care Education/Training Program; Visit Provider Internal Medicine | DX: I35.1 Nonrheumatic aortic (valve) insufficiency (principal); I34.81 Nonrheumatic mitral (valve) annulus calcification; I51.89 Other ill-defined heart diseases | CPT/HCPCS: 93306 ==

== ENCOUNTER 2025-01-03 08:03 | Outpatient (AMB) | payer MEDICARE, SELFPAY ==
--- OUTSIDE RECORDS SUMMARY | 2025-01-03 08:07 | XMS_ITS | Patient Health Record ---
Author Organization [facility] Address [address] [place] [address] Care Team Providers Care Adult Literacy Instructor Name Role Phone Jalen Simons Primary Care Provider Asia Burris Unavailable [phone] Allergies No Known Allergies Results Component Value [...] Polyneuropathy due to type 2 diabetes mellitus (130785253) Type 2 diabetes mellitus with diabetic polyneuropathy (E11.42) Active confirmed Vital Signs Blood pressure diastolic 65 mm Hg 09/30/2024 Height 5 ft 3 in in 09/30/2024 Blood pressure systolic 126 mm Hg 09/30/2024 Weight 240 lbs 09/30/2024 BMI 42.51 kg/m2 09/30/2024 Procedures Procedure Date Ordered Date Performed Result Body Sit e 89074-QWELATM NAIL, 6 OR MORE 01/17/2024 N/A 84309-LCRF SKIN LESIONS, 2 TO 4 01/17/2024 N/A 49644-DQHEVQL NAIL, 6 OR MORE 05/29/2024 N/A 44420-OPUW SKIN LESIONS, 2 TO 4 05/29/2024 N/A 12486-QERVPAX NAIL, 6 OR MORE 09/30/2024 N/A 14518-PARQ SKIN LESIONS, 2 TO 4 09/30/2024 N/A Encounters Encounter [facility] Date [facility] [address] 01/17/2024 Asia Burris Type 2 diabetes mellitus with diabetic polyneuropathy E11.42 and Tinea unguium B35.[address] [address] 05/29/2024 Asia Burris Type 2 diabetes mellitus with diabetic polyneuropathy E11.42 and Tinea unguium B35.[address] [address] 09/30/2024 Asia Burris Type 2 diabetes mellitus [...] Treatment Pending Test Test Name Order Date 56629-NWDWDOX NAIL, 6 OR MORE 07/27/2011 40126-NSBNQDV NAIL, 6 OR MORE 10/27/2011 28122-ODPGJUA NAIL, 6 OR MORE 01/26/2012 88757-VQAQHWY NAIL, 6 OR MORE 05/24/2012 58521-QAKYFYT NAIL, 6 OR MORE 09/24/2012 84346-WCVSDQD NAIL, 6 OR MORE 01/14/2013 65902-ADILISW NAIL, 6 OR MORE 06/10/2013 92553-OUNQGGI NAIL, 6 OR MORE 10/21/2013 96792-ECUVRDT NAIL, 6 OR MORE 01/20/2014 47697-HTGOUCO NAIL, 6 OR MORE 05/21/2014 25726-YXZTPXQ NAIL, 6 OR MORE 08/20/2014 30976-BOPBNTC NAIL, 6 OR MORE 12/17/2014 62598-LWAUMEJ NAIL, 6 OR MORE 05/25/2015 09836-MKPGFGL NAIL, 6 OR MORE 09/21/2015 91597-FKLBCAI NAIL, 6 OR MORE 01/21/2016 94707-AAQKIHV NAIL, 6 OR MORE 06/06/2016 62157-QVPOZLF NAIL, 6 OR MORE 10/10/2016 54013-DFUDHAK NAIL, 6 OR MORE 01/23/2017 06177-VCGYCGM NAIL, 6 OR MORE 06/14/2017 79777-WECPRBB NAIL, 6 OR MORE 10/18/2017 77242-EPTAZBA NAIL, 6 OR MORE 01/17/2018 66717-OPUAWWC NAIL, 6 OR MORE 01/17/2024 57695-ZXCMQYH NAIL, 6 OR MORE 05/29/2024 29834-JKYNMOO NAIL, 6 OR MORE 09/30/2024 68512-Apdubsao Plate 10/27/2011 65702-Jxlzjqwf Plate 01/26/2012 16140-WQGW SKIN LESIONS, OVER 4 01/26/20 12 26330-OGDA SKIN LESIONS, OVER 4 05/25/19 13 33103-TIGM SKIN LESIONS, OVER 4 10/27/19 12 45142-VDBN SKIN LESIONS, OVER 4 07/27/19 12 98711-KQAO SKIN LESIONS, OVER 4 10/22/19 14 95841-PLQY SKIN LESIONS, OVER 4 06/11/19 14 41175-OTQF SKIN LESIONS, OVER 4 01/15/20 13 37286-WWEK SKIN LESIONS, OVER 4 09/25/19 13 96826-KCNZ SKIN LESIONS, OVER 4 06/07/19 17 68605-NXSZ SKIN LESIONS, OVER 4 10/11/19 17 02471-CORD SKIN LESIONS, OVER 4 01/21/20 16 09888-CUHP SKIN LESIONS, OVER 4 09/21/19 16 97908-MSNG SKIN LESIONS, OVER 4 05/25/19 16 59443-SIIK SKIN LESIONS, OVER 4 12/18/19 15 35178-GHLZ SKIN LESIONS, OVER 4 08/21/19 15 34643-TNOD SKIN LESIONS, OVER 4 05/22/19 15 19432-HUGQ SKIN LESIONS, OVER 4 01/21/20 14 99795-AARM SKIN LESIONS, OVER 4 05/17/19 19 24246-NOFW SKIN LESIONS, OVER 4 08/21/19 19 29923-VHZH SKIN LESIONS, OVER 4 01/24/20 19 06617-VZET SKIN LESIONS, OVER 4 06/05/19 20 44392-YDUS SKIN LESIONS, OVER 4 09/30/19 20 01533-BPKR SKIN LESIONS, OVER 4 01/06/20 20 47614-RZOQ SKIN LESIONS, OVER 4 06/30/19 21 33664-ETPL SKIN LESIONS, OVER 4 10/15/19 21 23335-IAPP SKIN LESIONS, OVER 4 05/28/19 22 91769-YXJX SKIN LESIONS, OVER 4 01/18/20 18 53833-UPET SKIN LESIONS, OVER 4 10/19/19 18 91990-ICTW SKIN LESIONS, OVER 4 06/15/19 18 80711-KWOS SKIN LESIONS, OVER 4 01/24/20 17 85581-JWKA SKIN LESIONS, 2 TO 4 10/01/19 25 07023-DDQO SKIN LESIONS, 2 TO 4 05/30/19 25 59609-ISRG SKIN LESIONS, 2 TO 4 01/17/20 24 Next Appt Details Provider Name:Asia Giordano maryana, 01/30/2025 09:15:00 AM, [address] [facility], [place], [address], Insurance Providers Payer Name Payer Address Payer Phone Subscriber Number Group Number Insured Name Patient Relationship to Insured Coverage Start Date Coverage End Date Medicare National [employer]t S[employer] [address] [place] [address] [id number] Amanda Hughes Self - patient is the insured 8 [facility] [address] [place] [address] [phone] [id number] Amanda Hughes Self - patient is the insured Medical (General) History Medical History History ICD Code hypertension type II diabetes Surgical History Surgery Date(Month/Year) laser surgery left knee replacement 04/2020 right knee replacement 05/31/2021
--- OUTSIDE RECORDS SUMMARY | 2025-01-03 08:07 | XMS_ITS | Patient Health Record ---
Author Organization [facility] Address [address] [place] [address] Care Team Providers Care Cable Former Name Role Phone Paradise (RETIRED) Fredrick MOHR Primary Care Provide Keaton Orosco Jr Unavailable Allergies Allergen (clinical drug ingredient) Drug/Non Drug Allergy documented on EMR Reaction Allergy Type Onset Date Status sulfamethoxazole / trimethoprim Bactrim rash Drug Allergy Active Reason For Referral No Information Medications Medication SIG (Take, Route, Frequency, Duration) Notes Start Date End Date Status Simvastatin 10 MG Tablet 1 tablet in the evening Orally Once a day Active Furosemide 40 MG Tablet 1 tablet Orally Once a day Active Valsartan 320 MG Tablet 1 tablet Orally Once a day Active Levothyroxine Sodium 50 MCG Tablet 1 tablet on an empty stomach in the morning Orally Once a day Active glipiZIDE XL 5 MG Tablet Extended Release 24 Hour 1 tablet Orally Once a day Active Colyte with Flavor Packs 240 GM Solution Reconstituted As directed Orally Over the specified time.; Duration: 1 day(s) Active Fish Oil Active Aspir-81 Active metFORMIN HCl 500 MG Tablet 1 tablet wit h meals Orally Once a day Active Social History Tobacco Use: Social History Observation Description Date Details (start date - stop date) Never Smoker NA - NA Social History Drugs/Alcohol: Social Info Question Answer Notes Alcohol Screen Did you have a drink containing alcohol in the past year? No Points 0 Interpretation Negative Tobacco Use: Social Info Question Answer Notes Tobacco Use/Smoking Patient is a nonsmoker Additional Details Category Social Info Options Details Miscellaneous: Marital status: Occupation: retired Problems Problem Type SNOMED Code ICD Code Onset Dates Problem Status W/U Status Risk Notes Problem Colon cancer screening (539303560) Colon cancer screening (Z12.11) Active confirmed Problem Long-term current use of antiplatelet drug (211765655371625 ) fingerprint classifier (current) use of aspirin (Z79.82) Active confirmed Problem Long-term current use of drug therapy (406873410) Long-term current use of high risk medication other than anticoagulant (Z79.899) Active confirmed Plan Of Treatment Future Test Test Name Order Date COLONOSCOPY 08/11/2016 Insurance Providers Payer Name Payer Address Payer Phone Subscriber Number Group Number Insured Name Patient Relationship to Insured Coverage Start Date Coverage End Date MEDICARE OF [place] [address] [place] [address] [phone] [id number] SHAD ROBERTS Self - patient is the insured [employer] ATT[employer] CLAIMS [address] [place] [address] [phone] [id number] SHAD ROBERTS Self - patient is the insured Medical (General) History Medical History History ICD Code diabetes mellitus hypertension hypothyroidism elevated cholesterol Surgical History Surgery Date(Month/Year) hysterectomy tonsillectomy
[2025-01-03 08:08] VITALS: BP 138/74; PULSE 62; TEMP 36.2; O2SAT 97; BMI 42.9
--- NOTE | 2025-01-03 08:08 | A.OFFPC_ITS ---
Vital Signs 01/03/25 08:08 Height 5 ft 3 in Weight 242 lb BMI 42.9 BP 138/74 Blood Pressure Location Lt brachial Position Sitting Pulse 62 Pulse Source Pulse Oximeter Temp 97.2 F Temp Source Temporal Artery Scan Pulse Oximetry (%) 97 Oxygen Delivery Method Room Air Intake Visit Reasons: 4 weeks follow up [employer]el Food Service Supervisor Required: No Accompanied by: Self / Same As Patient Allergies sulfamethoxazole (From BACTRIM) Allergy (Intermediate, Verified 01/03/25 08:09) FULL BODY RASH trimethoprim (From BACTRIM) Allergy (Intermediate, Verified 01/03/25 08:09) FULL BODY RASH Sulfa (Sulfonamide Antibiotics) Allergy (Unknown, Verified 01/03/25 08:09) Unknown Medication List - Last Reconciled 01/03/25 by Gavin Avila MD amlodipine 5 mg PO DAILY aspirin 81 mg PO DAILY calcium citrate 250 mg PO DAILY carvedilol 12.5 mg PO BID 30 days cinnamon bark (Cinnamon) 500 mg PO DAILY furosemide (Lasix) 40 mg PO DAILY 90 days glipizide ER 5 mg PO DAILY 90 days jbncinpz-twouk-xpuwq-CF borate 750 mg-100 mg- 1.65 mg-108 mg ([facility]) tabs PO levothyroxine 50 mcg (1/2 x 100 mcg) PO DAILY 90 days mecobalamin (vitamin B12) 1,000 mcg PO DAILY metformin 1,000 mg (2 x 500 mg) PO BID 90 days multivitamin 1 tab PO DAILY omega 0-isy-oud-fish oil 60-90-500 mg (Fish Oil) 1 cap PO DAILY omeprazole 20 mg PO DAILY simvastatin 10 mg PO BEDTIME 90 days valsartan 320 mg PO DAILY 90 days Tobacco use date assessed: 01/03/25 Fall risk assessment: No Falls in past year Last assessed Fall Risk: 01/03/25 Dental Screening Dental Screen Date: 01/03/25 Did you have a dental visit in the last 12 months?: Yes Did you have a dental problem in the last 6 months where you did not have access to dental care?: No HPI HPI Comments History of Present Illness Details History of Present Illness The patient is an 84 year old individual presenting for follow-up and management of multiple chronic conditions, primarily hypertension. The patient recently discontinued chlorthalidone on December 18 due to significant stomach upset, which limited the patient's diet to tapioca pudding and crackers. Despite being off chlorthalidone, home blood pressure readings remain elevated, frequently in the 150s and 160s, though today's in-office reading was 138/74 mmHg. Long- standing uncontrolled hypertension is noted as a likely cause for some degree of kidney disease. The patient has a diagnosis of diastolic heart failure, confirmed by an echocardiogram which showed a normal ejection fraction of 63% but impaired cardiac relaxation. This condition explains the patient's experience of shortness of breath and fluid buildup after a water pill was previously stopped. The patient has a remote history of a cardiac ablation procedure performed approximately 35 years ago for an arrhythmia. Other chronic conditions include Type 2 diabetes, managed with metformin and glipizide; coronary artery disease, managed with aspirin; hypothyroidism, managed with levothyroxine; and hyperlipidemia, managed with simvastatin. Recent blood work from the of the month was stable, including kidney function. Medical History: - Essential Hypertension - Diastolic Heart Failure - Type 2 Diabetes Mellitus - Hyperlipidemia - Coronary Artery Disease - Chronic Kidney Disease - Hypothyroidism - Gastroesophageal Reflux Disease - History of cardiac arrhythmia Surgical History: - Cardiac catheter ablation approximatel y 35 years ago. Medications: - Chlorthalidone, recently discontinued due to stomach upset. - Carvedilol 12.5 mg twice a day for hyp ertension. - Valsartan 320 mg for hypertension. - Aspirin for coronary artery disease. - Lasix 40 mg every other day for edema. - Glipizide 5 mg for diabetes. - Metformin 1000 mg twice a day for diab etes. - Levothyroxine 50 mcg once a day for hy pothyroidism. - Simvastatin 10 mg for hyperlipidemia. Diagnostic Results: - Echocardiogram: Revealed diastolic hea rt failure with an ejection fraction of 63%. - Blood work (from December 23): Resul ts were stable, including kidney function. Social History - The patient has an engaged caregiver w ho assists with medication management and regularly monitors blood pressure at home. [facility] Medical History (Updated 01/03/25 @ 08:42 by Gavin Avila MD) GERD without esophagitis Heart failure Coronary artery disease Hyperlipidemia Diabetes High cholesterol Hypothyroid HTN (hypertension) Diabetes 1.5, managed as type 2 Surgical History (Updated 06/11/24 @ 09:10 by Gill West) History of colonoscopy (~09/27/17) Family History (Updated 01/03/25 @ 08:19 by Violetta Ta MA) Mother No problems noted. Father No problems noted. Social History Housing: House Patient Tobacco Use Status: Never used Tobacco e-Cigarette/Vaping Use: Never Used service: No Current occupational status: retired Cognitive needs: No Hearing needs: Yes Vision needs: Yes (reading glasses) Questionnaire PHQ-9 Over the last 2 weeks, how often have you been bothered by any of the following problems? 1. Little interest or pleasure in doing things: not at all 2. Feeling down, depressed, or hopeless: not at all 3. Trouble falling or staying asleep, or sleeping too much: not at all 4. Feeling tired or having little energy: not at all 5. Poor appetite or overeating: not at all 6. Feeling bad about yourself - or that you are a failure or have let yourself or your family down: not at all 7. Trouble concentrating on things, such as reading the newspaper or watching television: not at all 8. Moving or speaking so slowly that other people could have noticed. Or the opposite - being so fidgety or restless that you have been moving around a lot more than usual: not at all 9. Thoughts that you would be better off or of hurting yourself in some way: not at all Total score: 0 Depression Screening Interpretation: Negative Depression Screening Done: Yes Source: Developed by Drs. Jasiel Santa, Chinyere Ro, Valdo Ayers and colleagues, with an educational anneliese from [employer] ([place]). Thrive Questionnaire Date Thrive assessed: 01/03/25 I am a: Patient Within the past 12 months, did the food you bought not last and you didn't have the money to get more?: Never true Within the past 12 months, did you worry whether your food would run out before you got money to buy more?: Never true Do you have trouble paying for medicines?: No Do you have trouble getting transportation to medical appointments?: No Do you have trouble paying your heating and electricity bill?: No Do you have trouble taking care of your child, family member or friend?: No Do you have trouble with day-to-day activities such as bathing, preparing meals, shopping, managing finances, etc.?: No Are you currently unemployed and looking for a job?: No Are you interested in more education?: No THRIVE Score: 0 AUDIT C Alcohol Use Questionnaire (AUDIT-C) 1. How often do you have a drink containing alcohol?: Never 3. How often do you have six or more drinks on one occasion?: Never Total Score: 0 SHELLEY-7 AMB Questionnaire SHELLEY-7 Date SHELLEY - 7 assessed: 01/03/25 Feeling nervous, anxious, or on edge: 0 = Not at all Not being able to stop or control worryin = Not at all Worrying too much about different things: 0 = Not at all Trouble relaxin = Not at all Being so restless that it is hard to sit still: 0 = Not at all Becoming easily annoyed or irritable: 0 = Not at all Feeling afraid as if something awful might happen: 0 = Not at all Total SHELLEY-7 score (0-4 normal; 5-9 mild; 10-14 moderate; 15-21 severe): 0 Source: Developed by Drs. Jasiel Santa, Chinyere Ro, Valdo Ayers and colleagues, with an educational anneliese from [employer] ([place]). Review of Systems Narrative Review of Systems - Constitutional: Reports feeling well overall. - Gastrointestinal: Reports severe stomach upset with intolerance to chlorthalidone, leading to a restricted diet. - General: Denies any other current complaints or concerns. All systems reviewed & are unremarkable except as reviewed in HPI and above Physical exam (Primary Care) Vital Signs: Last Vital Signs Temp 97.2 F 01/03/25 08:08 Pulse 62 01/03/25 08:08 BP 138/74 01/03/25 08:08 Pulse Ox 97 01/03/25 08:08 Oxygen Delivery Method Room Air 01/03/25 08:08 BMI result Body Mass Index 42.9 Tobacco/Smoking Status: Tobacco use Status Tobacco use date assessed 01/03/25 01/03/25 08:12 Patient Tobacco Use Status Never used Tobacco 01/03/25 08:12 e-Cigarette/Vaping Use Never Used 01/03/25 08:12 PHQ-9: PHQ-9 Score PHQ-9: Total score 0 01/03/25 08:19 Depression Screening Interpretation: Negative Thrive Assessment: Date of Thrive Assessment Date Thrive assessed 01/03/25 01/03/25 08:12 Narrative Physical Exam General: +Alert and oriented, Well nourished, No acute distress. Eye: Pupils are equal, round and reactive to light, Intact accommodation, Extra ocular movements are intact, Normal conjunctiva, Vision unchanged. HENT: Normocephalic, Atraumatic, Tympanic membranes are clear, Normal hearing, Oral mucosa is moist, No pharyngeal erythema, Ear canals patent. Respiratory: Lungs CTA bilaterally, No wheeze, Respirations are non-labored, Lungs sound great. Cardiovascular: Regular rate, Regular rhythm, S1 auscultated, S2 auscultated, No murmur, Good pulses equal in all extremities, Normal peripheral perfusion, No edema, No swelling in the legs. Gastrointestinal: Soft, Non-tender, Non-distended, Normal bowel sounds, No organomegaly. Musculoskeletal: Normal range of motion, Normal strength, No tenderness, No swelling, No deformity, Normal gait. Integumentary: Warm, Dry, [place], Intact. Neurologic: Alert, Oriented, Normal sensory, Normal motor function, No focal defects, Cranial Nerves II-XII are grossly intact, Normal deep tendon reflexes. Psychiatric: Cooperative, Appropriate mood & affect, Normal judgment. Coding Level of Care Code Est Pt Level 4 (38194) Complex visit Add On G2211 Diagnoses Primary hypertension I10 Hypertension type: primary hypertension Heart failure, unspecified HF chronicity, unspecified heart failure type I50.9 Heart failure type: unspecified Heart failure chronicity: unspecified GERD without esophagitis K21.9 Type 2 diabetes mellitus without complication, without long-term current use of insulin E11.9 Diabetes mellitus type: type 2 Diabetes mellitus retirement insulin use: without retirement use Diabetes mellitus complication status: without complication Other specified hypothyroidism E03.8 Hypothyroidism type: other Coronary artery disease, unspecified vessel or lesion type, unspecified whether angina present, unspecified whether [place] or transplanted heart I25.10 Coronary Disease-Associated Artery/Lesion type: unspecified vessel or lesion type [place] vs. transplanted heart: unspecified whether [place] or transplanted heart Associated angina: unspecified whether angina present Assessment & Plan Assessment & Plan (1) HTN (hypertension): Comment: - The patient's blood pressure remains elevated at home, frequently in the 150s- 160s, despite treatment with carvedilol and valsartan. - Chlorthalidone was discontinued due to gastrointestinal intolerance. - The plan is to add amlodipine 5 mg once daily to improve blood pressure control, with a goal of maintaining readings below 140 systolic. - The patient is advised to halve the dose to 2.5 mg if lightheadedness occurs. - Home blood pressure monitoring can be reduced to 2-3 times per week. Code(s): I10 - Essential (primary) hypertension Category: Medical Qualifiers: Hypertension type: primary hypertension Qualified Code(s): I10 - Essential (primary) hypertension (2) Heart failure: Comment: - The diagnosis is based on echocardiogram findings of impaired cardiac relaxation with a preserved ejection fraction of 63%. - This is managed with Lasix 40 mg every other day to control fluid retention. - The patient is currently stable without edema. - The plan is to continue the current dosage of Lasix. Code(s): I50.9 - Heart failure, unspecified Category: Medical Qualifiers: Heart failure type: unspecified Heart failure chronicity: unspecified Qualified Code(s): I50.9 - Heart failure, unspecified (3) GERD without esophagitis: Comment: - The patient reported significant stomach upset secondary to chlorthalidone. - The plan is to prescribe omeprazole 20 mg once daily for symptomatic relief. Code(s): K21.9 - Gastro-esophageal reflux disease without esophagitis Category: Medical (4) Diabetes: Comment: - Blood sugar control is currently within acceptable limits with an A1c of 6.2% from November previous year. - Continue Glipizide & Metformin 1000mg BID Code(s): E11.9 - Type 2 diabetes mellitus without complications Category: Medical Qualifiers: Diabetes mellitus type: type 2 Diabetes mellitus retirement insulin use: without ethnoarchaeologist use Diabetes mellitus complication status: without complication Qualified Code(s): E11.9 - Type 2 diabetes mellitus without complications (5) Hypothyroid: Comment: - Levothyroxine seems adequate given prior TSH levels were well-controlled, with no current change in therapy Code(s): E03.9 - Hypothyroidism, unspecified Category: Medical Qualifiers: Hypothyroidism type: other Qualified Code(s): E03.8 - Other specified hypothyroidism (6) Coronary artery disease: Comment: - Continue aspirin therapy as part of cardiovascular risk reduction strategy. Code(s): I25.10 - Atherosclerotic heart disease of [place] coronary artery without angina pectoris Category: Medical Qualifiers: Coronary Disease-Associated Artery/Lesion type: unspecified vessel or lesion type [place] vs. transplanted heart: unspecified whether [place] or transplanted heart Associated angina: unspecified whether angina present Qualified Code(s): I25.10 - Atherosclerotic heart disease of [place] coronary artery without angina pectoris Plan: Health Maintenance: - Follow-up scheduled in three months to reassess blood pressure management and overall stability. - The patient is advised that vitamin intake can be reduced if desired. - Home blood pressure monitoring frequency is reduced from daily to twice a week. Patient was informed and verbally consented to the use of an ambient scribe for clinic note documentation during this visit. Plan I have discussed with the patient and the patient's caregiver that the blood pressure remains elevated at home, and we will be adding a new medication, amlodipine 5 mg daily, to help achieve our goal of under 140 systolic. I explained that this is necessary because the patient could not tolerate chlorthalidone due to stomach upset. I advised them that if the new medication causes lightheadedness, the pill can be cut in half. I also reviewed the diagnosis of diastolic heart failure, explaining it is an age-related change w here the heart does not relax properly, which can lead to fluid buildup and shortness of breath. I will prescribe omeprazole for the patient's stomach discomfort. We discussed continuing all other current medications and reducing the frequency of home blood pressure monitoring. We agreed to cancel the upcoming February appointment and reschedule for three months' time to allow the patient to enjoy the winter and holidays without frequent office visits. Medications: New amlodipine 5 mg PO DAILY 90 tabs 0RF omeprazole 20 mg PO DAILY 90 caps 0RF Patient Instructions: - Stop taking chlorthalidone. - Start taking amlodipine 5 mg every morning. - If you feel lightheaded or dizzy from the new amlodipine pill, you can break it in half and take only 2.5 mg. - Start taking omeprazole 20 mg once a day for your stomach. - Continue all your other current medications, including carvedilol twice a day and all your other morning pills. - Continue taking Lasix 40 mg every other day. - You can reduce checking your blood pressure at home to twice a week instead of every day. - You can cut down on the number of vitamins you take if you want to. - Your next follow-up appointment will be in three months. - You do not need to call about high blood pressure readings before your next appointment in three months unless you are having symptoms.
== END 2025-01-03 08:39 | disposition home or self-care (01) ==
LOC: HO.HMCHD 08:04
PROVIDERS: PCP Student in an Organized Health Care Education/Training Program; Visit Provider Student in an Organized Health Care Education/Training Program
DX: I10 Essential (primary) hypertension (principal); I50.9 Heart failure, unspecified; K21.9 Gastro-esophageal reflux disease without esophagitis; E11.9 Type 2 diabetes mellitus without complications; E03.8 Other specified hypothyroidism; I25.10 Atherosclerotic heart disease of native coronary artery without angina pectoris

== ENCOUNTER → 2025-01-03 08:03 | Outpatient (BNVA) | payer MEDICARE, SELFPAY | PROVIDERS: PCP Student in an Organized Health Care Education/Training Program; Visit Provider Student in an Organized Health Care Education/Training Program | DX: I10 Essential (primary) hypertension (principal); I50.9 Heart failure, unspecified; K21.9 Gastro-esophageal reflux disease without esophagitis; E11.9 Type 2 diabetes mellitus without complications; E03.9 Hypothyroidism, unspecified; I25.10 Atherosclerotic heart disease of native coronary artery without angina pectoris; Z13.31 Encounter for screening for depression; Z13.39 Encounter for screening examination for other mental health and behavioral disorders | CPT/HCPCS: 96127; 99212 ==